=== PATIENT | male | born 1960 | race Caucasian/White ===

== ENCOUNTER 2017-06-25 05:16 | Emergency (ER) | payer BC, OTHER ==
[~2017-06-25] VITALS: Ht 177.8 cm; Wt 85.0 kg
[~2017-06-25 05:16] MED LIST: ALPR0.257 PO; AMOX1TAB64 PO; FAMO-79 PO; HYDR-3237 PO; HYDR473S47 PO; LORA-446 PO; PANT40TA3 PO; TRAZ100T15 PO
[2017-06-25 05:22] VITALS: BP 173/103
== END 2017-06-25 06:32 | disposition home or self-care (01) ==
LOC: ED 06:07
DX: J01.90 Acute sinusitis, unspecified (principal); F17.200 Nicotine dependence, unspecified, uncomplicated; I10 Essential (primary) hypertension
CPT/HCPCS: 99283

== ENCOUNTER 2018-02-10 14:55 | Inpatient (IN) | payer OTHER ==
[~2018-02-10] VITALS: Ht 177.8 cm; Wt 95.8 kg
[~2018-02-10 14:55] MED LIST changes: +TRAZ-137 PO; -TRAZ100T15 PO
[2018-02-10] MEDS ORDERED: ONDANSETRON 2MG/ML, 2ML IVPush ONE (15:00)
[2018-02-10] MEDS ORDERED: SODIUM CHLORIDE FLUSH 10ML SYR IVF ONE (15:00)
[2018-02-10 15:24] LABS: BASOPHILS # (AUTO) 0.04 x10^3/uL (0-0.1); BASOPHILS % (AUTO) 1 % (0-1); EOSINOPHILS # (AUTO) 0.06 x10^3/uL (0-0.4); EOSINOPHILS % (AUTO) 1 % (1-7); LYMPHOCYTES # (AUTO) 1.04 x10^3/uL (1-3.4); LYMPHOCYTES % (AUTO) 13 % (22-44); MD NO; MEAN CORPUSCULAR HEMOGLOBIN 24.5 pg (27.5-34.5); MEAN CORPUSCULAR HGB CONC 32.3 g/dL (33.2-36.2); MEAN CORPUSCULAR VOLUME 75.8 fL (81-97); MEAN PLATELET VOLUME 7.7 fL (7.4-10.4); MONOCYTES # (AUTO) 0.56 x10^3/uL (0.2-0.8); MONOCYTES % (AUTO) 7 % (2-9); NEUTROPHILS % (AUTO) 78 % (42-75); PLATELET COUNT 332 x10^3/uL (130-400); RED BLOOD COUNT 5.46 x10^6/uL (4.38-5.82); RED CELL DISTRIBUTION WIDTH 18.8 % (9.4-14.8)
[2018-02-10] MEDS ORDERED: SODIUM CHLORIDE 0.9% 1,000ML IVBOLUS ONE (15:30)
[2018-02-10] MEDS ORDERED: ONDANSETRON 2MG/ML, 2ML ONE (15:31)
[2018-02-10 15:38] LABS: ALBUMIN 3.7 g/dL (3.4-5.0); ANION GAP 8 mmol/L (5-15); CALCIUM 9.2 mg/dL (8.5-10.1); CHLORIDE 109 mmol/L (98-107)
[2018-02-10 15:41] LABS: ALANINE AMINOTRANSFERASE 25 U/L (12-78); ALKALINE PHOSPHATASE 157 U/L (45-117); BILIRUBIN,TOTAL 0.5 mg/dL (0.2-1.0); CREATININE 1.03 mg/dL (0.7-1.3); TOTAL PROTEIN 8.5 g/dL (6.4-8.2)
[2018-02-10] MEDS ORDERED: POLYETHYLENE GLYCOL 17 GM PACKET PO PRN (17:00)
[2018-02-10] MEDS ORDERED: BISACODYL 10 MG SUPP PR PRN (17:00)
[2018-02-10] MEDS: D5%-LR+KCL 20MEQ 1,000 ML IV SCH ×2 (17:00→22:00)
[2018-02-10] MEDS ORDERED: ONDANSETRON 2MG/ML, 2ML IVPush PRN (17:00)
[2018-02-10 17:40] LABS: CHOL/HDL RATIO 2.3; LDL/HDL RATIO 1.1 (0.5-3.0)
[2018-02-10 17:54] VITALS: BP 190/107
[2018-02-10 18:16] VITALS: BP 186/100
[2018-02-10] MEDS: ENALAPRILAT 1.25 MG/ML, 2ML IV PRN (18:46)
[2018-02-10] MEDS: POTASSIUM CHLORIDE 20 MEQ, MAGNESIUM SULFATE 2 GM, THIAMINE 100 MG, MVI ADULT 10 ML, FO... IV SCH (19:29)
[2018-02-10 19:30] VITALS: BP 157/97
[2018-02-10 20:16] VITALS: BP 143/89
[2018-02-10] MEDS: MORPHINE SULFATE 4 MG/ML, 1ML IVPush PRN (21:09)
[2018-02-11 01:28] VITALS: BP 169/118
[2018-02-11] MEDS: D5%-LR+KCL 20MEQ 1,000 ML IV SCH ×3 (04:58→16:09)
[2018-02-11] MEDS: MORPHINE SULFATE 4 MG/ML, 1ML IVPush PRN ×5 (05:14→21:25)
[2018-02-11 05:58] LABS: BASOPHILS # (AUTO) 0.02 x10^3/uL (0-0.1); BASOPHILS % (AUTO) 0 % (0-1); EOSINOPHILS # (AUTO) 0.13 x10^3/uL (0-0.4); EOSINOPHILS % (AUTO) 2 % (1-7); LYMPHOCYTES # (AUTO) 1.61 x10^3/uL (1-3.4); LYMPHOCYTES % (AUTO) 20 % (22-44); MD NO; MEAN CORPUSCULAR HGB CONC 32.4 g/dL (33.2-36.2); MEAN CORPUSCULAR VOLUME 77.2 fL (81-97); MEAN PLATELET VOLUME 7.7 fL (7.4-10.4); MONOCYTES # (AUTO) 0.58 x10^3/uL (0.2-0.8); MONOCYTES % (AUTO) 7 % (2-9); NEUTROPHILS # (AUTO) 5.68 x10^3/uL (1.8-6.8); NEUTROPHILS % (AUTO) 71 % (42-75); PLATELET COUNT 277 x10^3/uL (130-400); RED BLOOD COUNT 4.75 x10^6/uL (4.38-5.82); RED CELL DISTRIBUTION WIDTH 18.9 % (9.4-14.8)
[2018-02-11 06:02] LABS: CHLORIDE 108 mmol/L (98-107)
[2018-02-11 06:13] LABS: ALANINE AMINOTRANSFERASE 22 U/L (12-78); ALBUMIN 3.1 g/dL (3.4-5.0); ALKALINE PHOSPHATASE 124 U/L (45-117); ANION GAP 7 mmol/L (5-15); BILIRUBIN,TOTAL 0.7 mg/dL (0.2-1.0); CALCIUM 8.1 mg/dL (8.5-10.1); CREATININE 0.94 mg/dL (0.7-1.3); TOTAL PROTEIN 7.1 g/dL (6.4-8.2)
[2018-02-11 07:56] VITALS: BP 142/88
[2018-02-11 11:48] LABS: MICROSCOPIC NOT IND
[2018-02-11 11:50] LABS: CULTURE INDICATED? NO
[2018-02-11 14:30] VITALS: BP 171/100
[2018-02-11] MEDS ORDERED: morphine SULFATE 10 MG/ML, 1ML ONE (15:03)
[2018-02-11] MEDS: POTASSIUM CHLORIDE 20 MEQ, MAGNESIUM SULFATE 2 GM, THIAMINE 100 MG, MVI ADULT 10 ML, FO... IV SCH (18:03)
[2018-02-11 20:07] VITALS: BP 169/99
[2018-02-12] MEDS: MORPHINE SULFATE 4 MG/ML, 1ML IVPush PRN ×8 (00:26→23:11)
[2018-02-12] MEDS: ENALAPRILAT 1.25 MG/ML, 2ML IV PRN (03:50)
[2018-02-12 03:51] VITALS: BP 188/117
[2018-02-12 04:30] VITALS: BP 129/73
[2018-02-12 05:21] LABS: BASOPHILS # (AUTO) 0.02 x10^3/uL (0-0.1); BASOPHILS % (AUTO) 0 % (0-1); EOSINOPHILS # (AUTO) 0.09 x10^3/uL (0-0.4); EOSINOPHILS % (AUTO) 1 % (1-7); LYMPHOCYTES # (AUTO) 1.01 x10^3/uL (1-3.4); LYMPHOCYTES % (AUTO) 11 % (22-44); MD NO; MEAN CORPUSCULAR HEMOGLOBIN 25.3 pg (27.5-34.5); MEAN CORPUSCULAR HGB CONC 32.6 g/dL (33.2-36.2); MEAN CORPUSCULAR VOLUME 77.7 fL (81-97); MONOCYTES # (AUTO) 0.61 x10^3/uL (0.2-0.8); MONOCYTES % (AUTO) 7 % (2-9); NEUTROPHILS # (AUTO) 7.56 x10^3/uL (1.8-6.8); NEUTROPHILS % (AUTO) 81 % (42-75); PLATELET COUNT 256 x10^3/uL (130-400); RED CELL DISTRIBUTION WIDTH 18.9 % (9.4-14.8)
[2018-02-12 05:27] LABS: ANION GAP 4 mmol/L (5-15); CALCIUM 8.1 mg/dL (8.5-10.1); CHLORIDE 105 mmol/L (98-107); CREATININE 0.87 mg/dL (0.7-1.3)
[2018-02-12] MEDS: D5%-LR+KCL 20MEQ 1,000 ML IV SCH ×4 (06:35→22:00)
[2018-02-12] MEDS ORDERED: ACETAMINOPHEN 325 MG TABLET PO PRN (08:30)
[2018-02-12] MEDS ORDERED: LORazepam 1MG TABLET PO PRN (08:30)
[2018-02-12 09:31] VITALS: BP 152/92
[2018-02-12] MEDS: BACLOFEN 10 MG TABLET PO SCH ×2 (10:04→16:25)
[2018-02-12 15:38] VITALS: BP 160/96
[2018-02-12] MEDS: POTASSIUM CHLORIDE 20 MEQ, MAGNESIUM SULFATE 2 GM, THIAMINE 100 MG, MVI ADULT 10 ML, FO... IV SCH (17:51)
[2018-02-12 19:16] VITALS: BP 164/94
[2018-02-12] MEDS: DOCUSATE 100 MG CAPSULE PO PRN (20:00)
[2018-02-12] MEDS ORDERED: TEMAZEPAM 15 MG CAPSULE PO PRN (23:30)
[2018-02-13] MEDS: BACLOFEN 10 MG TABLET PO SCH ×2 (00:33→09:00)
[2018-02-13 01:45] VITALS: BP 166/93
[2018-02-13] MEDS: MORPHINE SULFATE 4 MG/ML, 1ML IVPush PRN ×3 (02:53→09:09)
[2018-02-13] MEDS: D5%-LR+KCL 20MEQ 1,000 ML IV SCH ×2 (03:49→10:00)
[2018-02-13 04:26] LABS: BASOPHILS # (AUTO) 0.01 x10^3/uL (0-0.1); BASOPHILS % (AUTO) 0 % (0-1); EOSINOPHILS # (AUTO) 0.02 x10^3/uL (0-0.4); EOSINOPHILS % (AUTO) 0 % (1-7); LYMPHOCYTES # (AUTO) 0.82 x10^3/uL (1-3.4); LYMPHOCYTES % (AUTO) 9 % (22-44); MD NO; MEAN CORPUSCULAR HEMOGLOBIN 24.8 pg (27.5-34.5); MEAN CORPUSCULAR VOLUME 77.4 fL (81-97); MEAN PLATELET VOLUME 7.7 fL (7.4-10.4); MONOCYTES # (AUTO) 0.94 x10^3/uL (0.2-0.8); MONOCYTES % (AUTO) 10 % (2-9); NEUTROPHILS # (AUTO) 7.75 x10^3/uL (1.8-6.8); NEUTROPHILS % (AUTO) 81 % (42-75); PLATELET COUNT 265 x10^3/uL (130-400); RED BLOOD COUNT 4.71 x10^6/uL (4.38-5.82); RED CELL DISTRIBUTION WIDTH 19.1 % (9.4-14.8)
[2018-02-13 04:56] LABS: ALANINE AMINOTRANSFERASE 19 U/L (12-78); ALKALINE PHOSPHATASE 134 U/L (45-117); BILIRUBIN,TOTAL 0.4 mg/dL (0.2-1.0); CREATININE 1.06 mg/dL (0.7-1.3); TOTAL PROTEIN 7.5 g/dL (6.4-8.2)
[2018-02-13 05:16] LABS: ANION GAP 3 mmol/L (5-15); CALCIUM 8.1 mg/dL (8.5-10.1); CHLORIDE 104 mmol/L (98-107)
[2018-02-13 06:56] VITALS: BP 170/90
[2018-02-13] MEDS: DOCUSATE 100 MG CAPSULE PO PRN (09:01)
[2018-02-13] MEDS: AMLODIPINE 5 MG TABLET PO SCH (12:15)
[2018-02-13] MEDS: HYDROcodone/APAP 5/325 TABLET PO PRN ×2 (12:22→19:06)
[2018-02-13 12:50] VITALS: BP 159/92
[2018-02-13] MEDS: POTASSIUM CHLORIDE 20 MEQ, MAGNESIUM SULFATE 2 GM, THIAMINE 100 MG, MVI ADULT 10 ML, FO... IV SCH (16:53)
[2018-02-14] MEDS: HYDROcodone/APAP 5/325 TABLET PO PRN ×2 (01:08→07:05)
[2018-02-14 01:11] VITALS: BP 170/107
[2018-02-14 05:20] LABS: BASOPHILS # (AUTO) 0.05 x10^3/uL (0-0.1); BASOPHILS % (AUTO) 1 % (0-1); EOSINOPHILS # (AUTO) 0.08 x10^3/uL (0-0.4); EOSINOPHILS % (AUTO) 1 % (1-7); LYMPHOCYTES # (AUTO) 1.24 x10^3/uL (1-3.4); LYMPHOCYTES % (AUTO) 16 % (22-44); MD NO; MEAN CORPUSCULAR HEMOGLOBIN 24.8 pg (27.5-34.5); MEAN CORPUSCULAR VOLUME 77.5 fL (81-97); MEAN PLATELET VOLUME 8.1 fL (7.4-10.4); MONOCYTES # (AUTO) 0.85 x10^3/uL (0.2-0.8); MONOCYTES % (AUTO) 11 % (2-9); NEUTROPHILS # (AUTO) 5.47 x10^3/uL (1.8-6.8); NEUTROPHILS % (AUTO) 71 % (42-75); PLATELET COUNT 285 x10^3/uL (130-400); RED BLOOD COUNT 4.77 x10^6/uL (4.38-5.82); RED CELL DISTRIBUTION WIDTH 18.9 % (9.4-14.8)
[2018-02-14 05:20] LABS: CHLORIDE 106 mmol/L (98-107)
[2018-02-14 05:52] LABS: % IRON SATURATION 5 % (20-55); ALBUMIN 2.8 g/dL (3.4-5.0); ANION GAP 6 mmol/L (5-15); CALCIUM 8.4 mg/dL (8.5-10.1); IRON LEVEL 24 mcg/dL (65-175); TOTAL IRON BINDING CAPACITY 454 mcg/dL (250-450)
[2018-02-14 06:03] LABS: FOLATE LEVEL > 20.0 ng/mL (3.1-17.5)
[2018-02-14 07:30] VITALS: BP 160/94
[2018-02-14] MEDS ORDERED: FERROUS SULFATE 325 MG TABLET PO SCH (08:00)
[2018-02-14] MEDS ORDERED: MAALOX/HYOSCYAMINE/LIDOCAINE 45 ML BTL PO ONE (08:30)
[2018-02-14] MEDS ORDERED: SUCR1ORA5 PO (08:36)
[2018-02-14] MEDS ORDERED: AMLO5TAB2 PO (08:36)
[2018-02-14] MEDS ORDERED: FERR-51 PO (08:37)
[2018-02-14] MEDS: AMLODIPINE 5 MG TABLET PO SCH (08:50)
[2018-02-14] MEDS ORDERED: SUCRALFATE 1 GM/10 ML UDC PO SCH (11:00)
== END 2018-02-14 12:38 | disposition home or self-care (01) | DRG 391 ==
LOC: ED 16:59 → 3NE 17:00 → ED 17:06
PROVIDERS: ADMIT Internal Medicine; ATTEND Internal Medicine
DX: K29.20 Alcoholic gastritis without bleeding (principal); K85.20 Alcohol induced acute pancreatitis without necrosis or infection; F10.10 Alcohol abuse, uncomplicated; E16.2 Hypoglycemia, unspecified; Z66 Do not resuscitate; Y90.9 Presence of alcohol in blood, level not specified; I11.9 Hypertensive heart disease without heart failure; Z79.899 Other long term (current) drug therapy; Z87.11 Personal history of peptic ulcer disease; Z82.49 Family history of ischemic heart disease and other diseases of the circulatory system; Z93.4 Other artificial openings of gastrointestinal tract status; Z98.84 Bariatric surgery status; Z80.9 Family history of malignant neoplasm, unspecified; Z71.41 Alcohol abuse counseling and surveillance of alcoholic
CPT/HCPCS: 36415; 74022; 99285; J7042; 74176; 80048; 80053; 80061; 81003; 82040; 82607; 82728; 82746; 83540; 83550; 83690; 83735; 84100; 84443; 85025; 93005; 96361; 96374; J2405; J3411; J3475; J3480; J7030

== ENCOUNTER 2019-06-08 07:22 | Emergency (ER) | payer MEDICAID ==
[~2019-06-08] VITALS: Ht 175.3 cm; Wt 80.0 kg
[~2019-06-08 07:22] MED LIST changes: +AMLO-150 PO; +ERGO500017 PO; +FERR-51 PO; +FERR324T18 PO; +FLUC200T PO; +SUCR1ORA5 PO
[2019-06-08 07:29] VITALS: BP 172/108
--- NOTE | 2019-06-08 07:46 | NUR ---
LISA HENDRICKSON TO BS FOR ASSESSMENT. AWAITING ORDERS.
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
[2019-06-08] MEDS ORDERED: DIPHENHYDRAMINE 50 MG CAPSULE PO ONE (08:00)
== END 2019-06-08 08:19 | disposition home or self-care (01) ==
LOC: ED 08:04
DX: L03.312 Cellulitis of back [any part except buttock and flank] (principal); L21.9 Seborrheic dermatitis, unspecified; F10.20 Alcohol dependence, uncomplicated; F15.20 Other stimulant dependence, uncomplicated; I10 Essential (primary) hypertension; Y90.0 Blood alcohol level of less than 20 mg/100 ml
CPT/HCPCS: 99283

== ENCOUNTER 2019-10-21 16:12 | Inpatient (IN) | payer MEDICAID ==
[~2019-10-21] VITALS: Ht 177.8 cm; Wt 79.8 kg
[~2019-10-21 16:12] MED LIST changes: -TRAZ-137 PO; +TRAZ-175 PO
--- NOTE | 2019-10-21 17:46 | NUR ---
ADJUNCT PROFESSOR: PT TO ROOM FROM LOBBY
--- NOTE | 2019-10-21 18:08 | NUR ---
PIV STARTED AND BLOOD DRAWN. PT ON CONTINUOUS SPO2 MONITOR AND BP CUFF SET TO [id number]. AWAITING MD.
[2019-10-21] MEDS ORDERED: ONDANSETRON 2MG/ML, 2ML ONE (18:12)
[2019-10-21] MEDS ORDERED: MORPHINE SULFATE 4 MG/ML, 1ML ONE ×2 (18:12→20:12)
[2019-10-21] MEDS ORDERED: LORazepam 2 MG/ML, 1ML IV STA (18:13)
[2019-10-21] MEDS: MORPHINE SULFATE 4 MG/ML, 1ML IVPush PRN ×2 (18:17→20:41)
[2019-10-21] MEDS ORDERED: LORazepam 2 MG/ML, 1ML ONE ×3 (18:19→21:21)
[2019-10-21 18:26] LABS: BASOPHILS # (AUTO) 0.04 x10^3/uL (0-0.1); BASOPHILS % (AUTO) 1 % (0-1); EOSINOPHILS # (AUTO) 0.01 x10^3/uL (0-0.4); EOSINOPHILS % (AUTO) 0 % (1-7); LYMPHOCYTES # (AUTO) 0.34 x10^3/uL (1-3.4); LYMPHOCYTES % (AUTO) 4 % (22-44); MD NO; MEAN CORPUSCULAR HEMOGLOBIN 30.6 pg (27.5-34.5); MEAN CORPUSCULAR HGB CONC 33.3 g/dL (33.2-36.2); MEAN CORPUSCULAR VOLUME 91.8 fL (81-97); MEAN PLATELET VOLUME 8.3 fL (7.4-10.4); MONOCYTES # (AUTO) 0.48 x10^3/uL (0.2-0.8); MONOCYTES % (AUTO) 6 % (2-9); NEUTROPHILS # (AUTO) 7.16 x10^3/uL (1.8-6.8); NEUTROPHILS % (AUTO) 89 % (42-75); PLATELET COUNT 173 x10^3/uL (130-400); RED BLOOD COUNT 5.04 x10^6/uL (4.38-5.82); RED CELL DISTRIBUTION WIDTH 15.8 % (9.4-14.8)
[2019-10-21] MEDS ORDERED: ONDANSETRON 2MG/ML, 2ML IVPush ONE (18:30)
[2019-10-21] MEDS ORDERED: SODIUM CHLORIDE FLUSH 10ML SYR IVF ONE (18:30)
[2019-10-21] MEDS ORDERED: SODIUM CHLORIDE 0.9% 1,000ML IVBOLUS ONE (18:30)
[2019-10-21 18:38] LABS: ALANINE AMINOTRANSFERASE 43 U/L (12-78); ALBUMIN 4.1 g/dL (3.4-5.0); ANION GAP 12 mmol/L (5-15); CALCIUM 9.5 mg/dL (8.5-10.1); CHLORIDE 94 mmol/L (98-107); CREATININE 1.02 mg/dL (0.7-1.3)
[2019-10-21 18:41] LABS: ALKALINE PHOSPHATASE 108 U/L (45-117); BILIRUBIN,TOTAL 1.2 mg/dL (0.2-1.0); TOTAL PROTEIN 8.7 g/dL (6.4-8.2)
[2019-10-21] MEDS ORDERED: LISI-167 PO (19:12)
--- NOTE | 2019-10-21 19:56 | NUR ---
PT TO BE ADMITTED
[2019-10-21] MEDS ORDERED: LORazepam 2 MG/ML, 1ML IVPush STA (19:58)
[2019-10-21] MEDS ORDERED: LABETALOL 5MG/ML, 20ML IVPush ONE ×2 (20:00→22:00)
[2019-10-21] MEDS ORDERED: LABETALOL 5MG/ML, 20ML ONE (20:01)
--- NOTE | 2019-10-21 20:10 | NUR ---
MEDS ADMIN PER AUG. PT RESTING ON LUC.
[2019-10-21] MEDS ORDERED: LORazepam 2 MG/ML, 1ML IVPush PRN (20:30)
[2019-10-21] MEDS ORDERED: hydrALAzine 20 MG/ML, 1ML IV PRN (20:30)
[2019-10-21] MEDS: HEPARIN 5,000 UNITS/ML, 1ML SQ SCH (20:30)
[2019-10-21] MEDS ORDERED: BISACODYL 10 MG SUPP PR PRN (20:30)
[2019-10-21] MEDS ORDERED: ONDANSETRON 2MG/ML, 2ML IVPush PRN (20:30)
--- NOTE | 2019-10-21 21:28 | NUR ---
PT BP CONTINUES ELEVATED AFTER 10MG LABETALOL. NOTIFIED. N/O FOR LABETALOL 10MG IV ONCE, AND ATIVAN 1MG IV ONCE. MEDS ADMIN ORDERED. PT RESTING ON GURNEY. PHANI.
[2019-10-21] MEDS: POTASSIUM CHLORIDE 20 MEQ, MAGNESIUM SULFATE 2 GM, THIAMINE 200 MG, MVI ADULT 10 ML, FO... IV SCH (21:30)
--- NOTE | 2019-10-21 21:53 | NUR ---
REPORT GIVEN TO NABOR LAWSON.
[2019-10-21] MEDS ORDERED: LORazepam 2 MG/ML, 1ML IVPush ONE (22:00)
[2019-10-21 22:39] VITALS: BP 189/120
[2019-10-21 23:20] VITALS: BP 189/102
[2019-10-21] MEDS: hydrALAzine 20 MG/ML, 1ML IV PRN (23:27)
[2019-10-21 23:52] VITALS: BP 152/92
[2019-10-22] VITALS (8 sets, daily range): BP systolic 134–179; BP diastolic 88–120
[2019-10-22] MEDS: HEPARIN 5,000 UNITS/ML, 1ML SQ SCH ×3 (04:43→20:38)
[2019-10-22 04:55] LABS: BASOPHILS # (AUTO) 0.01 x10^3/uL (0-0.1); BASOPHILS % (AUTO) 0 % (0-1); EOSINOPHILS # (AUTO) 0.03 x10^3/uL (0-0.4); EOSINOPHILS % (AUTO) 0 % (1-7); LYMPHOCYTES # (AUTO) 0.35 x10^3/uL (1-3.4); LYMPHOCYTES % (AUTO) 4 % (22-44); MD NO; MEAN CORPUSCULAR HEMOGLOBIN 30.4 pg (27.5-34.5); MEAN CORPUSCULAR HGB CONC 32.7 g/dL (33.2-36.2); MEAN PLATELET VOLUME 8.1 fL (7.4-10.4); MONOCYTES # (AUTO) 0.53 x10^3/uL (0.2-0.8); MONOCYTES % (AUTO) 6 % (2-9); NEUTROPHILS # (AUTO) 8.12 x10^3/uL (1.8-6.8); NEUTROPHILS % (AUTO) 90 % (42-75); PLATELET COUNT 154 x10^3/uL (130-400); RED BLOOD COUNT 4.79 x10^6/uL (4.38-5.82); RED CELL DISTRIBUTION WIDTH 16.1 % (9.4-14.8)
[2019-10-22 05:05] LABS: CALCIUM 8.6 mg/dL (8.5-10.1); CHLORIDE 102 mmol/L (98-107)
[2019-10-22 05:13] LABS: ANION GAP 8 mmol/L (5-15); CREATININE 0.72 mg/dL (0.7-1.3)
[2019-10-22] MEDS: LACTATED RINGERS 1,000 ML IV SCH ×6 (07:30→23:27)
[2019-10-22] MEDS: POTASSIUM CHLORIDE 20 MEQ, MAGNESIUM SULFATE 2 GM, THIAMINE 200 MG, MVI ADULT 10 ML, FO... IV SCH (08:25)
[2019-10-22] MEDS: morphine SULFATE 10 MG/ML, 1ML IVPush PRN ×3 (10:03→20:47)
[2019-10-22] MEDS: hydrALAzine 20 MG/ML, 1ML IV PRN (15:21)
[2019-10-23] MEDS: morphine SULFATE 10 MG/ML, 1ML IVPush PRN ×5 (02:00→20:08)
[2019-10-23 02:04] VITALS: BP 159/92
[2019-10-23] MEDS: HEPARIN 5,000 UNITS/ML, 1ML SQ SCH ×3 (04:26→20:07)
[2019-10-23] MEDS: LACTATED RINGERS 1,000 ML IV SCH ×5 (04:26→23:59)
[2019-10-23 06:13] LABS: ALBUMIN 2.8 g/dL (3.4-5.0); ANION GAP 7 mmol/L (5-15); CALCIUM 8.6 mg/dL (8.5-10.1); CHLORIDE 103 mmol/L (98-107)
[2019-10-23 06:16] LABS: ALANINE AMINOTRANSFERASE 24 U/L (12-78); ALKALINE PHOSPHATASE 87 U/L (45-117); BILIRUBIN,TOTAL 0.7 mg/dL (0.2-1.0); CREATININE 0.71 mg/dL (0.7-1.3)
[2019-10-23 06:25] VITALS: BP 165/102
[2019-10-23] MEDS: POTASSIUM CHLORIDE 20 MEQ, MAGNESIUM SULFATE 2 GM, THIAMINE 200 MG, MVI ADULT 10 ML, FO... IV SCH ×2 (09:25→11:13)
[2019-10-23 13:22] VITALS: BP 181/114
[2019-10-23 13:24] VITALS: BP 173/101
[2019-10-23] MEDS: hydrALAzine 20 MG/ML, 1ML IV PRN (15:41)
[2019-10-23 17:53] VITALS: BP 154/93
[2019-10-23 18:31] VITALS: BP 149/88
[2019-10-24 01:41] VITALS: BP 152/92
[2019-10-24] MEDS: HEPARIN 5,000 UNITS/ML, 1ML SQ SCH ×3 (04:48→20:31)
[2019-10-24] MEDS: morphine SULFATE 10 MG/ML, 1ML IVPush PRN ×7 (04:49→22:15)
[2019-10-24] MEDS: LACTATED RINGERS 1,000 ML IV SCH ×4 (04:52→20:32)
[2019-10-24 06:24] VITALS: BP 154/96
[2019-10-24 06:31] LABS: MEAN CORPUSCULAR HEMOGLOBIN 30.7 pg (27.5-34.5); MEAN CORPUSCULAR HGB CONC 32.9 g/dL (33.2-36.2); MEAN CORPUSCULAR VOLUME 93.1 fL (81-97); RED BLOOD COUNT 3.91 x10^6/uL (4.38-5.82); RED CELL DISTRIBUTION WIDTH 15.7 % (9.4-14.8)
[2019-10-24 06:40] LABS: ANION GAP 8 mmol/L (5-15); CALCIUM 8.7 mg/dL (8.5-10.1); CHLORIDE 99 mmol/L (98-107)
[2019-10-24 07:42] LABS: BASOPHILS # (AUTO) 0.01 x10^3/uL (0-0.1); BASOPHILS % (AUTO) 0 % (0-1); EOSINOPHILS # (AUTO) 0.06 x10^3/uL (0-0.4); EOSINOPHILS % (AUTO) 1 % (1-7); LYMPHOCYTES # (AUTO) 0.52 x10^3/uL (1-3.4); LYMPHOCYTES % (AUTO) 10 % (22-44); MD SCAN; MEAN PLATELET VOLUME 8.4 fL (7.4-10.4); MONOCYTES % (AUTO) 9 % (2-9); NEUTROPHILS % (AUTO) 80 % (42-75); PLATELET COUNT 128 x10^3/uL (130-400)
[2019-10-24] MEDS ORDERED: THIAMINE 100 MG in SODIUM CHLORIDE 0.9% 50 ML IV SCH (10:00)
[2019-10-24] MEDS: PANTOPRAZOLE 40 MG IV IVPush SCH ×2 (11:41→22:14)
[2019-10-24 12:02] VITALS: BP 154/92
[2019-10-24] MEDS ORDERED: OMNIPAQUE 350 MG/ML, 100ML BOTTLE ONE (12:14)
[2019-10-24 18:42] VITALS: BP 165/92
[2019-10-25 01:10] VITALS: BP 159/86
[2019-10-25] MEDS: LACTATED RINGERS 1,000 ML IV SCH ×3 (01:12→09:57)
[2019-10-25] MEDS: morphine SULFATE 10 MG/ML, 1ML IVPush PRN ×5 (01:33→22:54)
[2019-10-25 04:18] VITALS: BP 190/107
[2019-10-25] MEDS: hydrALAzine 20 MG/ML, 1ML IV PRN ×2 (04:21→19:15)
[2019-10-25] MEDS: HEPARIN 5,000 UNITS/ML, 1ML SQ SCH ×4 (05:03→20:28)
[2019-10-25 05:10] VITALS: BP 162/93
[2019-10-25 06:25] VITALS: BP 152/85
[2019-10-25 07:05] LABS: ANION GAP 12 mmol/L (5-15); CALCIUM 8.5 mg/dL (8.5-10.1); CHLORIDE 101 mmol/L (98-107); CREATININE 0.57 mg/dL (0.7-1.3)
[2019-10-25] MEDS: DOCUSATE 100 MG CAPSULE PO SCH ×2 (08:57→20:25)
[2019-10-25] MEDS: PANTOPRAZOLE 40 MG IV IVPush SCH (08:58)
[2019-10-25] MEDS: ACETAMINOPHEN 325 MG TABLET PO PRN (08:58)
[2019-10-25] MEDS: POLYETHYLENE GLYCOL 17 GM PACKET PO SCH (08:58)
[2019-10-25] MEDS: LISINOPRIL 10 MG TABLET PO SCH (10:12)
[2019-10-25 12:04] VITALS: BP 168/86
[2019-10-25 19:05] VITALS: BP 190/102
[2019-10-25] MEDS ORDERED: MAGNESIUM CITRATE 300ML ORAL SOL PO ONE (20:00)
[2019-10-25] MEDS: PANTOPRAZOLE 40MG TABLET PO SCH (20:24)
[2019-10-26 01:52] VITALS: BP 177/100
[2019-10-26] MEDS: hydrALAzine 20 MG/ML, 1ML IV PRN (01:56)
[2019-10-26] MEDS: HEPARIN 5,000 UNITS/ML, 1ML SQ SCH ×2 (03:50→13:16)
[2019-10-26 05:01] VITALS: BP 171/98
[2019-10-26] MEDS: morphine SULFATE 10 MG/ML, 1ML IVPush PRN (05:09)
[2019-10-26] MEDS: PANTOPRAZOLE 40MG TABLET PO SCH ×2 (05:20→17:11)
[2019-10-26] MEDS: LACTATED RINGERS 1,000 ML IV SCH (06:48)
[2019-10-26 07:09] LABS: BASOPHILS # (AUTO) 0.01 x10^3/uL (0-0.1); BASOPHILS % (AUTO) 0 % (0-1); EOSINOPHILS # (AUTO) 0.05 x10^3/uL (0-0.4); EOSINOPHILS % (AUTO) 1 % (1-7); LYMPHOCYTES # (AUTO) 0.44 x10^3/uL (1-3.4); LYMPHOCYTES % (AUTO) 10 % (22-44); MD NO; MEAN CORPUSCULAR HEMOGLOBIN 30.7 pg (27.5-34.5); MEAN CORPUSCULAR HGB CONC 33.3 g/dL (33.2-36.2); MEAN CORPUSCULAR VOLUME 92.3 fL (81-97); MEAN PLATELET VOLUME 7.8 fL (7.4-10.4); MONOCYTES # (AUTO) 0.77 x10^3/uL (0.2-0.8); MONOCYTES % (AUTO) 18 % (2-9); NEUTROPHILS # (AUTO) 2.96 x10^3/uL (1.8-6.8); NEUTROPHILS % (AUTO) 70 % (42-75); PLATELET COUNT 180 x10^3/uL (130-400); RED BLOOD COUNT 4.29 x10^6/uL (4.38-5.82); RED CELL DISTRIBUTION WIDTH 15.1 % (9.4-14.8)
[2019-10-26 07:12] VITALS: BP 179/106
[2019-10-26 07:14] LABS: ALANINE AMINOTRANSFERASE 19 U/L (12-78); ALBUMIN 2.9 g/dL (3.4-5.0); ANION GAP 10 mmol/L (5-15); CALCIUM 8.2 mg/dL (8.5-10.1); CHLORIDE 101 mmol/L (98-107)
[2019-10-26 07:17] LABS: ALKALINE PHOSPHATASE 81 U/L (45-117); BILIRUBIN,TOTAL 0.5 mg/dL (0.2-1.0); CREATININE 0.63 mg/dL (0.7-1.3); TOTAL PROTEIN 6.9 g/dL (6.4-8.2)
[2019-10-26] MEDS: DOCUSATE 100 MG CAPSULE PO SCH (08:05)
[2019-10-26] MEDS: LISINOPRIL 10 MG TABLET PO SCH (08:06)
[2019-10-26] MEDS: POLYETHYLENE GLYCOL 17 GM PACKET PO SCH (08:06)
[2019-10-26] MEDS ORDERED: FOLIC ACID 1 MG TABLET PO SCH (09:00)
[2019-10-26] MEDS ORDERED: MULTIVITAMIN 1 TABLET PO SCH (09:00)
[2019-10-26] MEDS ORDERED: THIAMINE 100MG TABLET PO SCH (09:00)
[2019-10-26 09:28] VITALS: BP 157/97
[2019-10-26] MEDS: ACETAMINOPHEN 325 MG TABLET PO PRN (10:54)
[2019-10-26 13:39] VITALS: BP 165/95
[2019-10-26] MEDS ORDERED: PANT40TA3 PO (16:24)
[2019-10-26] MEDS ORDERED: MULT1TAB60 PO (16:24)
[2019-10-26] MEDS ORDERED: FOLI-17 PO (16:24)
[2019-10-26] MEDS ORDERED: THIA100T67 PO (16:24)
== END 2019-10-26 17:45 | disposition home or self-care (01) | DRG 439 ==
LOC: ED 17:59 → EDIP 20:00 → 4EST 22:24
PROVIDERS: ATTEND Internal Medicine
DX: K85.20 Alcohol induced acute pancreatitis without necrosis or infection (principal); J90 Pleural effusion, not elsewhere classified; J98.11 Atelectasis; K56.7 Ileus, unspecified; F10.231 Alcohol dependence with withdrawal delirium; I10 Essential (primary) hypertension; I16.0 Hypertensive urgency; K76.0 Fatty (change of) liver, not elsewhere classified; D64.9 Anemia, unspecified; D69.6 Thrombocytopenia, unspecified; K80.20 Calculus of gallbladder without cholecystitis without obstruction; K82.8 Other specified diseases of gallbladder; Z87.11 Personal history of peptic ulcer disease; Z91.14 Patient's other noncompliance with medication regimen; Z98.84 Bariatric surgery status
CPT/HCPCS: 36415; 99285; J7042; 71045; 74177; 76700; 80048; 80053; 83690; 83735; 84100; 85025; G0378; J1644; J2405; J3411; J3475; J3480; Q9967; C9113; J0360; J2060; J2270; J7030; J7120

== ENCOUNTER 2019-11-24 12:54 | Inpatient (IN) | payer MEDICAID ==
[~2019-11-24] VITALS: Ht 177.8 cm; Wt 76.1 kg
[~2019-11-24 12:54] MED LIST changes: +FOLI-17 PO; +LISI-167 PO; +MULT-449 PO; +THIA100T67 PO
--- NOTE | 2019-11-24 13:06 | NUR ---
BIB [facility] FROM HOME FOR DIZZINESS AND GENERALIZED WEAKNESS X2 WEEKS AND GETTING WORSE. INCREASED FALLS, DENIES TRAUMA FROM FALLS. HX ETOH ABUSE, STATES HASN'T HAD ANY ETOH IN ONE MONTH. PT CONNECTED TO MONITORING. CALL LIGHT IN REACH. FALL PRECAUTIONS IN PLACE.
--- NOTE | 2019-11-24 14:01 | NUR ---
PT RESTING COMFORTABLY ON [facility]. ANDREEN. AWAITING ORDERS AT THIS TIME.
[2019-11-24] MEDS ORDERED: SODIUM CHLORIDE FLUSH 10ML SYR IVF ONE (14:30)
[2019-11-24 14:44] LABS: BASOPHILS # (AUTO) 0.02 x10^3/uL (0-0.1); BASOPHILS % (AUTO) 0 % (0-1); EOSINOPHILS # (AUTO) 0.18 x10^3/uL (0-0.4); EOSINOPHILS % (AUTO) 3 % (1-7); LYMPHOCYTES # (AUTO) 1.35 x10^3/uL (1-3.4); LYMPHOCYTES % (AUTO) 19 % (22-44); MD NO; MEAN CORPUSCULAR HEMOGLOBIN 29.7 pg (27.5-34.5); MEAN CORPUSCULAR VOLUME 90.1 fL (81-97); MEAN PLATELET VOLUME 7.9 fL (7.4-10.4); MONOCYTES # (AUTO) 0.58 x10^3/uL (0.2-0.8); MONOCYTES % (AUTO) 8 % (2-9); NEUTROPHILS # (AUTO) 4.88 x10^3/uL (1.8-6.8); NEUTROPHILS % (AUTO) 70 % (42-75); PLATELET COUNT 250 x10^3/uL (130-400); RED BLOOD COUNT 4.87 x10^6/uL (4.38-5.82); RED CELL DISTRIBUTION WIDTH 14.3 % (9.4-14.8)
[2019-11-24 14:52] LABS: ALANINE AMINOTRANSFERASE 18 U/L (12-78); ALBUMIN 3.6 g/dL (3.4-5.0); ANION GAP 9 mmol/L (5-15); CALCIUM 8.6 mg/dL (8.5-10.1); CHLORIDE 101 mmol/L (98-107); CREATININE 0.95 mg/dL (0.7-1.3)
[2019-11-24 14:53] LABS: SALICYLATE LEVEL < 1.7 mg/dL (2.8-20.0)
[2019-11-24 14:57] LABS: ALKALINE PHOSPHATASE 71 U/L (45-117); BILIRUBIN,TOTAL 0.2 mg/dL (0.2-1.0); TOTAL PROTEIN 7.8 g/dL (6.4-8.2); TROPONIN I < 0.015 ng/mL (0.000-0.045)
--- NOTE | 2019-11-24 15:15 | NUR ---
PT GIVEN URINE CUP FOR SAMPLE. PT UNABLE TO URINATE AT THIS TIME. PT TAKEN TO CT.
--- NOTE | 2019-11-24 15:48 | NUR ---
URINE COLLECTED VIA STRAIGHT CATH. PT TOLLERATED WELL. URINE TAKEN TO LAB. PT RESTING ON [facility]. PHANI.
[2019-11-24 16:11] LABS: AMPHETAMINE SCREEN, URINE Positive (Negative); BARBITURATE SCREEN, URINE Positive (Negative); BENZODIAZEPINE SCREEN, URINE Negative (Negative); CANNABINOID SCREEN, URINE Positive (Negative); COCAINE SCREEN, URINE Negative (Negative); METHADONE SCREEN, URINE Negative (Negative); OPIATE SCREEN, URINE Negative (Negative)
--- NOTE | 2019-11-24 16:14 | NUR ---
ALL RESULTS ARE BACK AT THIS TIME. CHART UP FOR RECHECK.
--- NOTE | 2019-11-24 16:49 | NUR ---
PT TO BE ADMITTED
--- NOTE | 2019-11-24 16:51 | NUR ---
PT STATES HE DOES NOT TAKE ANY MEDS ON A DAILY BASIS.
[2019-11-24] MEDS ORDERED: ASPIRIN 325 MG TABLET PO STA (17:14)
[2019-11-24] MEDS ORDERED: ASPIRIN 325 MG TABLET ONE (17:20)
--- NOTE | 2019-11-24 17:23 | NUR ---
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 PT SELF ADJUSTED AND MORE COMFORTABLE IN BED. NADN. DINNER TRAY ORDERED.
--- NOTE | 2019-11-24 17:28 | NUR ---
DIET TRAY PROVIDED.
[2019-11-24] MEDS ORDERED: ONDANSETRON ODT 4 MG PO PRN (17:30)
[2019-11-24] MEDS ORDERED: LORazepam 2 MG/ML, 1ML IV PRN ×4 (17:30)
[2019-11-24] MEDS ORDERED: THIAMINE 100MG TABLET PO ONE (17:30)
--- NOTE | 2019-11-24 18:51 | NUR ---
PT RESTING COMFORTABLY ON GURNEY. NADN. AWAITING ADMIT BED UPSTAIRS.
--- NOTE | 2019-11-24 19:56 | NUR ---
REPORT GIVEN TO CAROL LAWSON.
[2019-11-24 20:05] VITALS: BP 149/99
[2019-11-24] MEDS: FOLIC ACID 1 MG TABLET PO SCH (21:19)
[2019-11-24] MEDS: MULTIVITAMIN 1 TABLET PO SCH (21:19)
[2019-11-24] MEDS: LACTATED RINGERS 1,000 ML IV SCH (21:19)
[2019-11-24] MEDS: ENOXAPARIN 40 MG/0.4 ML SQ SCH (21:20)
[2019-11-24 21:38] VITALS: BP 149/99
[2019-11-24 21:39] LABS: TROPONIN I < 0.015 ng/mL (0.000-0.045)
[2019-11-25] VITALS (10 sets, daily range): BP systolic 129–161; BP diastolic 82–101
[2019-11-25 03:23] LABS: BASOPHILS # (AUTO) 0.08 x10^3/uL (0-0.1); BASOPHILS % (AUTO) 1 % (0-1); EOSINOPHILS # (AUTO) 0.24 x10^3/uL (0-0.4); EOSINOPHILS % (AUTO) 4 % (1-7); LYMPHOCYTES # (AUTO) 1.71 x10^3/uL (1-3.4); LYMPHOCYTES % (AUTO) 29 % (22-44); MD NO; MEAN CORPUSCULAR HEMOGLOBIN 29.6 pg (27.5-34.5); MEAN CORPUSCULAR VOLUME 89.8 fL (81-97); MEAN PLATELET VOLUME 8.1 fL (7.4-10.4); MONOCYTES # (AUTO) 0.45 x10^3/uL (0.2-0.8); MONOCYTES % (AUTO) 8 % (2-9); NEUTROPHILS # (AUTO) 3.38 x10^3/uL (1.8-6.8); NEUTROPHILS % (AUTO) 58 % (42-75); PLATELET COUNT 226 x10^3/uL (130-400); RED BLOOD COUNT 4.78 x10^6/uL (4.38-5.82); RED CELL DISTRIBUTION WIDTH 14.4 % (9.4-14.8)
[2019-11-25 03:29] LABS: ALANINE AMINOTRANSFERASE 17 U/L (12-78); ALBUMIN 3.5 g/dL (3.4-5.0); ANION GAP 8 mmol/L (5-15); CALCIUM 8.9 mg/dL (8.5-10.1); CHLORIDE 103 mmol/L (98-107); CREATININE 0.85 mg/dL (0.7-1.3)
[2019-11-25 03:32] LABS: ALKALINE PHOSPHATASE 63 U/L (45-117); BILIRUBIN,TOTAL 0.4 mg/dL (0.2-1.0); TOTAL PROTEIN 7.2 g/dL (6.4-8.2)
[2019-11-25 03:54] LABS: TROPONIN I < 0.015 ng/mL (0.000-0.045)
[2019-11-25] MEDS: LACTATED RINGERS 1,000 ML IV SCH ×2 (05:41→15:02)
[2019-11-25] MEDS: FOLIC ACID 1 MG TABLET PO SCH (09:35)
[2019-11-25] MEDS: MULTIVITAMIN 1 TABLET PO SCH (09:35)
[2019-11-25] MEDS ORDERED: GADOTERATE 10 MMOL/20 ML SYR ONE (17:06)
[2019-11-25] MEDS: ENOXAPARIN 40 MG/0.4 ML SQ SCH (21:11)
[2019-11-25] MEDS: ENALAPRILAT 1.25 MG/ML, 2ML IV PRN (22:08)
[2019-11-26] VITALS (7 sets, daily range): BP systolic 135–156; BP diastolic 85–109
[2019-11-26] MEDS: LACTATED RINGERS 1,000 ML IV SCH ×3 (02:26→20:10)
[2019-11-26 05:53] LABS: BASOPHILS # (AUTO) 0.04 x10^3/uL (0-0.1); BASOPHILS % (AUTO) 1 % (0-1); EOSINOPHILS # (AUTO) 0.18 x10^3/uL (0-0.4); EOSINOPHILS % (AUTO) 3 % (1-7); LYMPHOCYTES # (AUTO) 1.49 x10^3/uL (1-3.4); LYMPHOCYTES % (AUTO) 26 % (22-44); MD NO; MEAN CORPUSCULAR HEMOGLOBIN 29.6 pg (27.5-34.5); MEAN CORPUSCULAR HGB CONC 33.1 g/dL (33.2-36.2); MEAN CORPUSCULAR VOLUME 89.4 fL (81-97); MEAN PLATELET VOLUME 8.4 fL (7.4-10.4); MONOCYTES % (AUTO) 7 % (2-9); NEUTROPHILS # (AUTO) 3.55 x10^3/uL (1.8-6.8); NEUTROPHILS % (AUTO) 63 % (42-75); PLATELET COUNT 234 x10^3/uL (130-400); RED CELL DISTRIBUTION WIDTH 13.7 % (9.4-14.8)
[2019-11-26 06:00] LABS: ANION GAP 8 mmol/L (5-15); CALCIUM 8.7 mg/dL (8.5-10.1); CHLORIDE 103 mmol/L (98-107)
[2019-11-26] MEDS: POLYETHYLENE GLYCOL 17 GM PACKET PO PRN (10:38)
[2019-11-26] MEDS: MULTIVITAMIN 1 TABLET PO SCH (10:38)
[2019-11-26] MEDS: DOCUSATE 100 MG CAPSULE PO PRN ×2 (10:38→20:13)
[2019-11-26] MEDS: FOLIC ACID 1 MG TABLET PO SCH (10:38)
[2019-11-26] MEDS: ENALAPRILAT 1.25 MG/ML, 2ML IV PRN (20:11)
[2019-11-26] MEDS: ENOXAPARIN 40 MG/0.4 ML SQ SCH (20:15)
[2019-11-26] MEDS ORDERED: OMNIPAQUE 350 MG/ML, 100ML BOTTLE ONE (22:05)
[2019-11-27] VITALS (7 sets, daily range): BP systolic 133–184; BP diastolic 64–102
[2019-11-27] MEDS: ENALAPRILAT 1.25 MG/ML, 2ML IV PRN (02:31)
[2019-11-27] MEDS: hydrALAzine 20 MG/ML, 1ML IV PRN (04:22)
[2019-11-27] MEDS: LACTATED RINGERS 1,000 ML IV SCH ×2 (04:22→14:30)
[2019-11-27 06:02] LABS: BASOPHILS # (AUTO) 0.06 x10^3/uL (0-0.1); BASOPHILS % (AUTO) 1 % (0-1); EOSINOPHILS # (AUTO) 0.17 x10^3/uL (0-0.4); EOSINOPHILS % (AUTO) 3 % (1-7); LYMPHOCYTES # (AUTO) 1.33 x10^3/uL (1-3.4); LYMPHOCYTES % (AUTO) 22 % (22-44); MD NO; MEAN CORPUSCULAR HGB CONC 33.5 g/dL (33.2-36.2); MEAN CORPUSCULAR VOLUME 89.6 fL (81-97); MONOCYTES # (AUTO) 0.44 x10^3/uL (0.2-0.8); MONOCYTES % (AUTO) 7 % (2-9); NEUTROPHILS # (AUTO) 4.05 x10^3/uL (1.8-6.8); NEUTROPHILS % (AUTO) 67 % (42-75); PLATELET COUNT 246 x10^3/uL (130-400); RED CELL DISTRIBUTION WIDTH 13.8 % (9.4-14.8)
[2019-11-27 06:06] LABS: ANION GAP 8 mmol/L (5-15); CHLORIDE 101 mmol/L (98-107)
[2019-11-27 06:08] LABS: CREATININE 0.86 mg/dL (0.7-1.3)
[2019-11-27] MEDS: POLYETHYLENE GLYCOL 17 GM PACKET PO PRN (07:56)
[2019-11-27] MEDS: FOLIC ACID 1 MG TABLET PO SCH (07:56)
[2019-11-27] MEDS: DOCUSATE 100 MG CAPSULE PO PRN (07:56)
[2019-11-27] MEDS: MULTIVITAMIN 1 TABLET PO SCH (07:56)
[2019-11-27] MEDS ORDERED: LEVETIRACETAM 100 MG/ML, 5ML IV STA (15:25)
[2019-11-27] MEDS ORDERED: LEVETIRACETAM 1,000 MG in SODIUM CHLORIDE 0.9% 100 ML IV ONE (15:33)
[2019-11-27] MEDS: LACTULOSE 20 GM/30 ML UDC PO PRN (16:43)
[2019-11-27] MEDS: SENNA/DOCUSATE TABLET PO SCH (21:03)
[2019-11-27] MEDS: LEVETIRACETAM 500 MG TABLET PO SCH (21:04)
[2019-11-27] MEDS: ENOXAPARIN 40 MG/0.4 ML SQ SCH (21:07)
[2019-11-28 02:00] VITALS: BP 129/58
[2019-11-28] MEDS: IBUPROFEN 600 MG TABLET PO PRN ×2 (03:43→19:20)
[2019-11-28 05:27] LABS: BASOPHILS # (AUTO) 0.08 x10^3/uL (0-0.1); BASOPHILS % (AUTO) 1 % (0-1); EOSINOPHILS # (AUTO) 0.19 x10^3/uL (0-0.4); EOSINOPHILS % (AUTO) 3 % (1-7); LYMPHOCYTES # (AUTO) 1.22 x10^3/uL (1-3.4); LYMPHOCYTES % (AUTO) 20 % (22-44); MD NO; MEAN CORPUSCULAR HEMOGLOBIN 29.7 pg (27.5-34.5); MEAN CORPUSCULAR HGB CONC 33.5 g/dL (33.2-36.2); MEAN CORPUSCULAR VOLUME 88.8 fL (81-97); MEAN PLATELET VOLUME 8.3 fL (7.4-10.4); MONOCYTES # (AUTO) 0.42 x10^3/uL (0.2-0.8); MONOCYTES % (AUTO) 7 % (2-9); NEUTROPHILS # (AUTO) 4.37 x10^3/uL (1.8-6.8); NEUTROPHILS % (AUTO) 69 % (42-75); PLATELET COUNT 253 x10^3/uL (130-400); RED BLOOD COUNT 4.63 x10^6/uL (4.38-5.82); RED CELL DISTRIBUTION WIDTH 13.9 % (9.4-14.8)
[2019-11-28 05:37] LABS: ANION GAP 10 mmol/L (5-15); CALCIUM 8.8 mg/dL (8.5-10.1); CHLORIDE 102 mmol/L (98-107)
[2019-11-28 05:38] LABS: CREATININE 0.81 mg/dL (0.7-1.3)
[2019-11-28] MEDS: LACTATED RINGERS 1,000 ML IV SCH ×2 (06:35→16:08)
[2019-11-28 06:45] VITALS: BP 163/92
[2019-11-28 07:12] VITALS: BP 126/84
[2019-11-28] MEDS: LEVETIRACETAM 500 MG TABLET PO SCH ×2 (08:06→20:58)
[2019-11-28] MEDS: MAGNESIUM HYDROXIDE 8%, 30ML UDC PO SCH (08:06)
[2019-11-28] MEDS: FOLIC ACID 1 MG TABLET PO SCH (08:06)
[2019-11-28] MEDS: MULTIVITAMIN 1 TABLET PO SCH (08:06)
[2019-11-28] MEDS: DOCUSATE 100 MG CAPSULE PO SCH (08:07)
[2019-11-28 14:35] VITALS: BP 149/92
[2019-11-28] MEDS: ENOXAPARIN 40 MG/0.4 ML SQ SCH (20:58)
[2019-11-28] MEDS: SENNA/DOCUSATE TABLET PO SCH (20:58)
[2019-11-28] MEDS: ACETAMINOPHEN 325 MG TABLET PO PRN (21:13)
[2019-11-28 21:57] VITALS: BP 152/91
[2019-11-29 00:28] VITALS: BP 162/96
[2019-11-29] MEDS: ACETAMINOPHEN 325 MG TABLET PO PRN ×2 (00:34→20:03)
[2019-11-29] MEDS: ENALAPRILAT 1.25 MG/ML, 2ML IV PRN (01:04)
[2019-11-29] MEDS: LACTATED RINGERS 1,000 ML IV SCH ×2 (02:28→14:59)
[2019-11-29 02:29] VITALS: BP 150/90
[2019-11-29] MEDS: IBUPROFEN 600 MG TABLET PO PRN (02:33)
[2019-11-29] MEDS ORDERED: MAGNESIUM CITRATE 300ML ORAL SOL PO ONE ×2 (05:30→06:30)
[2019-11-29 05:40] LABS: BASOPHILS # (AUTO) 0.04 x10^3/uL (0-0.1); BASOPHILS % (AUTO) 1 % (0-1); EOSINOPHILS # (AUTO) 0.24 x10^3/uL (0-0.4); EOSINOPHILS % (AUTO) 4 % (1-7); LYMPHOCYTES # (AUTO) 1.41 x10^3/uL (1-3.4); LYMPHOCYTES % (AUTO) 25 % (22-44); MD NO; MEAN CORPUSCULAR HEMOGLOBIN 29.6 pg (27.5-34.5); MEAN CORPUSCULAR HGB CONC 32.8 g/dL (33.2-36.2); MEAN CORPUSCULAR VOLUME 90.2 fL (81-97); MEAN PLATELET VOLUME 8.3 fL (7.4-10.4); MONOCYTES # (AUTO) 0.44 x10^3/uL (0.2-0.8); MONOCYTES % (AUTO) 8 % (2-9); NEUTROPHILS % (AUTO) 62 % (42-75); PLATELET COUNT 247 x10^3/uL (130-400); RED BLOOD COUNT 4.71 x10^6/uL (4.38-5.82); RED CELL DISTRIBUTION WIDTH 13.8 % (9.4-14.8)
[2019-11-29 05:47] LABS: ANION GAP 7 mmol/L (5-15); CALCIUM 9.2 mg/dL (8.5-10.1); CHLORIDE 106 mmol/L (98-107); CREATININE 0.95 mg/dL (0.7-1.3)
[2019-11-29 06:35] VITALS: BP 133/86
[2019-11-29] MEDS: MAGNESIUM HYDROXIDE 8%, 30ML UDC PO SCH (08:07)
[2019-11-29] MEDS: FOLIC ACID 1 MG TABLET PO SCH (08:07)
[2019-11-29] MEDS: MULTIVITAMIN 1 TABLET PO SCH (08:07)
[2019-11-29] MEDS: DOCUSATE 100 MG CAPSULE PO SCH (08:07)
[2019-11-29] MEDS: LEVETIRACETAM 500 MG TABLET PO SCH ×2 (08:08→20:03)
[2019-11-29 13:08] VITALS: BP 145/90
[2019-11-29] MEDS: LACTULOSE 20 GM/30 ML UDC PO PRN (16:41)
[2019-11-29 16:48] LABS: GLUCOSE, CSF 58 mg/dL (40-80); TOTAL PROTEIN,CSF 89 mg/dL (15-45)
[2019-11-29 19:23] VITALS: BP 138/86
[2019-11-29] MEDS: ENOXAPARIN 40 MG/0.4 ML SQ SCH (20:03)
[2019-11-29] MEDS: BISACODYL 10 MG SUPP PR PRN (20:03)
[2019-11-30 00:41] VITALS: BP 132/80
[2019-11-30] MEDS: LACTATED RINGERS 1,000 ML IV SCH ×3 (00:47→22:03)
[2019-11-30] MEDS: BISACODYL 10 MG SUPP PR PRN (05:25)
[2019-11-30 06:18] LABS: BASOPHILS # (AUTO) 0.02 x10^3/uL (0-0.1); BASOPHILS % (AUTO) 0 % (0-1); EOSINOPHILS % (AUTO) 4 % (1-7); LYMPHOCYTES # (AUTO) 1.07 x10^3/uL (1-3.4); LYMPHOCYTES % (AUTO) 19 % (22-44); MD NO; MEAN CORPUSCULAR HEMOGLOBIN 29.4 pg (27.5-34.5); MEAN CORPUSCULAR HGB CONC 32.5 g/dL (33.2-36.2); MEAN CORPUSCULAR VOLUME 90.3 fL (81-97); MEAN PLATELET VOLUME 8.2 fL (7.4-10.4); MONOCYTES # (AUTO) 0.31 x10^3/uL (0.2-0.8); MONOCYTES % (AUTO) 5 % (2-9); NEUTROPHILS # (AUTO) 4.11 x10^3/uL (1.8-6.8); NEUTROPHILS % (AUTO) 72 % (42-75); PLATELET COUNT 250 x10^3/uL (130-400); RED BLOOD COUNT 4.81 x10^6/uL (4.38-5.82); RED CELL DISTRIBUTION WIDTH 13.7 % (9.4-14.8)
[2019-11-30 06:25] LABS: ANION GAP 9 mmol/L (5-15); CALCIUM 8.8 mg/dL (8.5-10.1); CHLORIDE 102 mmol/L (98-107)
[2019-11-30 06:26] LABS: CREATININE 0.78 mg/dL (0.7-1.3)
[2019-11-30 06:42] VITALS: BP 166/105
[2019-11-30] MEDS: FOLIC ACID 1 MG TABLET PO SCH (08:42)
[2019-11-30] MEDS: MULTIVITAMIN 1 TABLET PO SCH (08:42)
[2019-11-30] MEDS: LEVETIRACETAM 500 MG TABLET PO SCH ×2 (08:42→20:36)
[2019-11-30] MEDS: ENALAPRILAT 1.25 MG/ML, 2ML IV PRN (08:42)
[2019-11-30] MEDS: MAGNESIUM HYDROXIDE 8%, 30ML UDC PO SCH (08:43)
[2019-11-30] MEDS: DOCUSATE 100 MG CAPSULE PO SCH (08:43)
[2019-11-30 12:13] VITALS: BP 145/91
[2019-11-30 18:37] VITALS: BP 123/77
[2019-11-30] MEDS: ENOXAPARIN 40 MG/0.4 ML SQ SCH (20:36)
[2019-12-01 00:36] VITALS: BP 142/69
[2019-12-01 05:41] LABS: BASOPHILS # (AUTO) 0.05 x10^3/uL (0-0.1); BASOPHILS % (AUTO) 1 % (0-1); EOSINOPHILS # (AUTO) 0.22 x10^3/uL (0-0.4); EOSINOPHILS % (AUTO) 4 % (1-7); LYMPHOCYTES # (AUTO) 1.33 x10^3/uL (1-3.4); LYMPHOCYTES % (AUTO) 25 % (22-44); MD NO; MEAN CORPUSCULAR HEMOGLOBIN 29.3 pg (27.5-34.5); MEAN CORPUSCULAR HGB CONC 32.7 g/dL (33.2-36.2); MEAN CORPUSCULAR VOLUME 89.7 fL (81-97); MEAN PLATELET VOLUME 8.1 fL (7.4-10.4); MONOCYTES # (AUTO) 0.46 x10^3/uL (0.2-0.8); MONOCYTES % (AUTO) 9 % (2-9); NEUTROPHILS # (AUTO) 3.35 x10^3/uL (1.8-6.8); NEUTROPHILS % (AUTO) 62 % (42-75); PLATELET COUNT 274 x10^3/uL (130-400); RED BLOOD COUNT 4.59 x10^6/uL (4.38-5.82); RED CELL DISTRIBUTION WIDTH 13.9 % (9.4-14.8)
[2019-12-01 05:55] LABS: ANION GAP 6 mmol/L (5-15); CALCIUM 8.7 mg/dL (8.5-10.1); CHLORIDE 102 mmol/L (98-107); CREATININE 0.91 mg/dL (0.7-1.3)
[2019-12-01 07:46] VITALS: BP 153/94
[2019-12-01] MEDS: LACTATED RINGERS 1,000 ML IV SCH ×2 (08:00→19:19)
[2019-12-01] MEDS: MAGNESIUM HYDROXIDE 8%, 30ML UDC PO SCH (08:24)
[2019-12-01] MEDS: DOCUSATE 100 MG CAPSULE PO SCH (08:24)
[2019-12-01] MEDS: MULTIVITAMIN 1 TABLET PO SCH (08:25)
[2019-12-01] MEDS: FOLIC ACID 1 MG TABLET PO SCH (08:25)
[2019-12-01] MEDS: LEVETIRACETAM 500 MG TABLET PO SCH ×2 (08:25→20:20)
[2019-12-01 15:02] VITALS: BP 169/96
[2019-12-01 18:58] VITALS: BP 146/95
[2019-12-01] MEDS: ENOXAPARIN 40 MG/0.4 ML SQ SCH (20:21)
[2019-12-02 00:31] VITALS: BP 135/87
[2019-12-02] MEDS: LACTATED RINGERS 1,000 ML IV SCH (04:53)
[2019-12-02 05:29] LABS: BASOPHILS # (AUTO) 0.03 x10^3/uL (0-0.1); BASOPHILS % (AUTO) 1 % (0-1); EOSINOPHILS # (AUTO) 0.23 x10^3/uL (0-0.4); EOSINOPHILS % (AUTO) 4 % (1-7); LYMPHOCYTES # (AUTO) 1.51 x10^3/uL (1-3.4); LYMPHOCYTES % (AUTO) 26 % (22-44); MD NO; MEAN CORPUSCULAR HEMOGLOBIN 29.2 pg (27.5-34.5); MEAN CORPUSCULAR HGB CONC 32.4 g/dL (33.2-36.2); MEAN CORPUSCULAR VOLUME 90.4 fL (81-97); MEAN PLATELET VOLUME 8.3 fL (7.4-10.4); MONOCYTES % (AUTO) 7 % (2-9); NEUTROPHILS # (AUTO) 3.56 x10^3/uL (1.8-6.8); NEUTROPHILS % (AUTO) 62 % (42-75); PLATELET COUNT 273 x10^3/uL (130-400); RED BLOOD COUNT 4.73 x10^6/uL (4.38-5.82)
[2019-12-02 05:46] LABS: ANION GAP 9 mmol/L (5-15); CALCIUM 8.9 mg/dL (8.5-10.1); CHLORIDE 101 mmol/L (98-107); CREATININE 0.94 mg/dL (0.7-1.3)
[2019-12-02 07:40] VITALS: BP 173/107
[2019-12-02] MEDS: LEVETIRACETAM 500 MG TABLET PO SCH ×2 (08:10→22:03)
[2019-12-02] MEDS: FOLIC ACID 1 MG TABLET PO SCH (08:10)
[2019-12-02] MEDS: ENALAPRILAT 1.25 MG/ML, 2ML IV PRN (08:11)
[2019-12-02] MEDS: MULTIVITAMIN 1 TABLET PO SCH (08:11)
[2019-12-02] MEDS: MAGNESIUM HYDROXIDE 8%, 30ML UDC PO SCH (08:15)
[2019-12-02] MEDS: DOCUSATE 100 MG CAPSULE PO SCH (08:15)
[2019-12-02] MEDS: DEXAMETHASONE 4 MG/ML, 1ML IVPush SCH ×3 (10:37→22:03)
[2019-12-02 13:10] VITALS: BP 136/91
[2019-12-02 19:50] VITALS: BP 150/95
[2019-12-02] MEDS: ENOXAPARIN 40 MG/0.4 ML SQ SCH (22:03)
[2019-12-03 00:17] VITALS: BP 151/97
[2019-12-03] MEDS: ACETAMINOPHEN 325 MG TABLET PO PRN ×2 (02:03→17:57)
[2019-12-03] MEDS: DEXAMETHASONE 4 MG/ML, 1ML IVPush SCH ×4 (03:26→21:05)
[2019-12-03 06:54] VITALS: BP 152/96
[2019-12-03] MEDS: MAGNESIUM HYDROXIDE 8%, 30ML UDC PO SCH (08:15)
[2019-12-03] MEDS: LEVETIRACETAM 500 MG TABLET PO SCH ×2 (08:15→21:05)
[2019-12-03] MEDS: DOCUSATE 100 MG CAPSULE PO SCH (08:15)
[2019-12-03] MEDS: FOLIC ACID 1 MG TABLET PO SCH (08:16)
[2019-12-03] MEDS: MULTIVITAMIN 1 TABLET PO SCH (08:16)
[2019-12-03 12:49] VITALS: BP 143/91
[2019-12-03 19:34] VITALS: BP 124/82
[2019-12-03] MEDS: ENOXAPARIN 40 MG/0.4 ML SQ SCH (21:05)
[2019-12-04] MEDS: ENALAPRILAT 1.25 MG/ML, 2ML IV PRN (00:49)
[2019-12-04] MEDS: ACETAMINOPHEN 325 MG TABLET PO PRN (00:50)
[2019-12-04 01:18] VITALS: BP 160/108
[2019-12-04 01:40] VITALS: BP 134/87
[2019-12-04] MEDS: DEXAMETHASONE 4 MG/ML, 1ML IVPush SCH ×4 (03:58→21:54)
[2019-12-04 05:27] LABS: ANION GAP 8 mmol/L (5-15); CALCIUM 9.2 mg/dL (8.5-10.1); CHLORIDE 106 mmol/L (98-107); CREATININE 0.99 mg/dL (0.7-1.3)
[2019-12-04 05:38] LABS: BASOPHILS # (AUTO) 0.01 x10^3/uL (0-0.1); BASOPHILS % (AUTO) 0 % (0-1); EOSINOPHILS % (AUTO) 0 % (1-7); LYMPHOCYTES # (AUTO) 0.68 x10^3/uL (1-3.4); LYMPHOCYTES % (AUTO) 5 % (22-44); MD NO; MEAN CORPUSCULAR HEMOGLOBIN 29.3 pg (27.5-34.5); MEAN CORPUSCULAR HGB CONC 32.7 g/dL (33.2-36.2); MEAN CORPUSCULAR VOLUME 89.6 fL (81-97); MEAN PLATELET VOLUME 8.8 fL (7.4-10.4); MONOCYTES # (AUTO) 0.51 x10^3/uL (0.2-0.8); MONOCYTES % (AUTO) 4 % (2-9); NEUTROPHILS # (AUTO) 13.02 x10^3/uL (1.8-6.8); NEUTROPHILS % (AUTO) 92 % (42-75); PLATELET COUNT 337 x10^3/uL (130-400); RED BLOOD COUNT 4.74 x10^6/uL (4.38-5.82); RED CELL DISTRIBUTION WIDTH 13.8 % (9.4-14.8)
[2019-12-04 07:11] VITALS: BP 124/80
[2019-12-04] MEDS: LEVETIRACETAM 500 MG TABLET PO SCH ×2 (07:49→20:06)
[2019-12-04] MEDS: MULTIVITAMIN 1 TABLET PO SCH (07:49)
[2019-12-04] MEDS: FOLIC ACID 1 MG TABLET PO SCH (07:49)
[2019-12-04] MEDS: DOCUSATE 100 MG CAPSULE PO SCH (07:49)
[2019-12-04] MEDS: MAGNESIUM HYDROXIDE 8%, 30ML UDC PO SCH (07:50)
[2019-12-04 14:03] VITALS: BP 116/69
[2019-12-04 18:19] VITALS: BP 134/83
[2019-12-04] MEDS: ENOXAPARIN 40 MG/0.4 ML SQ SCH (20:05)
[2019-12-04] MEDS: POLYETHYLENE GLYCOL 17 GM PACKET PO PRN (20:05)
[2019-12-05 01:51] VITALS: BP 180/101
[2019-12-05] MEDS: ENALAPRILAT 1.25 MG/ML, 2ML IV PRN (01:55)
[2019-12-05] MEDS ORDERED: BISACODYL 10 MG SUPP PR ONE (02:00)
[2019-12-05 03:09] VITALS: BP 130/77
[2019-12-05] MEDS: DEXAMETHASONE 4 MG/ML, 1ML IVPush SCH ×4 (04:04→21:56)
[2019-12-05 06:02] LABS: ANION GAP 12 mmol/L (5-15); CALCIUM 9.1 mg/dL (8.5-10.1); CHLORIDE 106 mmol/L (98-107); CREATININE 0.91 mg/dL (0.7-1.3)
[2019-12-05 06:03] LABS: BASOPHILS # (AUTO) 0.01 x10^3/uL (0-0.1); BASOPHILS % (AUTO) 0 % (0-1); EOSINOPHILS # (AUTO) 0.02 x10^3/uL (0-0.4); EOSINOPHILS % (AUTO) 0 % (1-7); LYMPHOCYTES % (AUTO) 6 % (22-44); MD NO; MEAN CORPUSCULAR HEMOGLOBIN 29.9 pg (27.5-34.5); MEAN CORPUSCULAR HGB CONC 33.2 g/dL (33.2-36.2); MEAN CORPUSCULAR VOLUME 89.9 fL (81-97); MONOCYTES # (AUTO) 0.29 x10^3/uL (0.2-0.8); MONOCYTES % (AUTO) 3 % (2-9); NEUTROPHILS # (AUTO) 9.63 x10^3/uL (1.8-6.8); NEUTROPHILS % (AUTO) 91 % (42-75); PLATELET COUNT 316 x10^3/uL (130-400); RED BLOOD COUNT 4.55 x10^6/uL (4.38-5.82); RED CELL DISTRIBUTION WIDTH 13.9 % (9.4-14.8)
[2019-12-05 09:29] VITALS: BP 131/85
[2019-12-05] MEDS: MULTIVITAMIN 1 TABLET PO SCH (09:31)
[2019-12-05] MEDS: FOLIC ACID 1 MG TABLET PO SCH (09:31)
[2019-12-05] MEDS: DOCUSATE 100 MG CAPSULE PO SCH (09:31)
[2019-12-05] MEDS: LEVETIRACETAM 500 MG TABLET PO SCH ×2 (09:31→21:35)
[2019-12-05] MEDS: MAGNESIUM HYDROXIDE 8%, 30ML UDC PO SCH (09:32)
[2019-12-05 13:25] VITALS: BP 139/91
[2019-12-05 19:35] VITALS: BP 152/93
[2019-12-05] MEDS: ENOXAPARIN 40 MG/0.4 ML SQ SCH (21:35)
[2019-12-06 00:45] VITALS: BP 148/83
[2019-12-06] MEDS: DEXAMETHASONE 4 MG/ML, 1ML IVPush SCH ×4 (03:43→21:09)
[2019-12-06 06:16] LABS: ANION GAP 6 mmol/L (5-15); BASOPHILS # (AUTO) 0.01 x10^3/uL (0-0.1); BASOPHILS % (AUTO) 0 % (0-1); CHLORIDE 104 mmol/L (98-107); CREATININE 0.87 mg/dL (0.7-1.3); EOSINOPHILS # (AUTO) 0.01 x10^3/uL (0-0.4); EOSINOPHILS % (AUTO) 0 % (1-7); LYMPHOCYTES % (AUTO) 6 % (22-44); MD NO; MEAN CORPUSCULAR HEMOGLOBIN 29.5 pg (27.5-34.5); MEAN CORPUSCULAR VOLUME 89.5 fL (81-97); MEAN PLATELET VOLUME 8.7 fL (7.4-10.4); MONOCYTES # (AUTO) 0.28 x10^3/uL (0.2-0.8); MONOCYTES % (AUTO) 3 % (2-9); NEUTROPHILS % (AUTO) 90 % (42-75); PLATELET COUNT 329 x10^3/uL (130-400); RED BLOOD COUNT 4.87 x10^6/uL (4.38-5.82)
[2019-12-06 08:04] VITALS: BP 182/103
[2019-12-06] MEDS: LEVETIRACETAM 500 MG TABLET PO SCH ×2 (08:35→21:09)
[2019-12-06] MEDS: FOLIC ACID 1 MG TABLET PO SCH (08:35)
[2019-12-06] MEDS: MAGNESIUM HYDROXIDE 8%, 30ML UDC PO SCH (08:36)
[2019-12-06] MEDS: MULTIVITAMIN 1 TABLET PO SCH (08:36)
[2019-12-06] MEDS: DOCUSATE 100 MG CAPSULE PO SCH (08:36)
[2019-12-06] MEDS: IBUPROFEN 600 MG TABLET PO PRN ×2 (08:36→16:06)
[2019-12-06 08:46] VITALS: BP 144/88
[2019-12-06 12:39] VITALS: BP 152/96
[2019-12-06] MEDS: LIDODERM 5% PATCH TD SCH (13:05)
[2019-12-06] MEDS: BISACODYL 10 MG SUPP PR PRN (15:59)
[2019-12-06] MEDS: LACTULOSE 20 GM/30 ML UDC PO PRN (15:59)
[2019-12-06] MEDS: ACETAMINOPHEN 325 MG TABLET PO PRN (16:09)
[2019-12-06] MEDS: DOCUSATE 100 MG CAPSULE PO PRN (16:10)
[2019-12-06 18:58] VITALS: BP 157/94
[2019-12-06] MEDS: ENOXAPARIN 40 MG/0.4 ML SQ SCH (21:10)
[2019-12-06] MEDS: LORazepam 2 MG/ML, 1ML IV PRN (21:10)
[2019-12-06] MEDS: LIDODERM REMOVE PATCH NOTE XX SCH (23:54)
[2019-12-07] MEDS: IBUPROFEN 600 MG TABLET PO PRN (00:50)
[2019-12-07 01:57] VITALS: BP 169/113
[2019-12-07] MEDS: LORazepam 2 MG/ML, 1ML IV PRN (02:54)
[2019-12-07] MEDS: hydrALAzine 20 MG/ML, 1ML IV PRN (03:21)
[2019-12-07] MEDS: DEXAMETHASONE 4 MG/ML, 1ML IVPush SCH ×4 (03:21→21:40)
[2019-12-07 05:34] LABS: ANION GAP 6 mmol/L (5-15); CALCIUM 8.3 mg/dL (8.5-10.1); CHLORIDE 105 mmol/L (98-107)
[2019-12-07 05:37] LABS: CREATININE 0.85 mg/dL (0.7-1.3)
[2019-12-07 05:39] LABS: BASOPHILS # (AUTO) 0.01 x10^3/uL (0-0.1); BASOPHILS % (AUTO) 0 % (0-1); EOSINOPHILS % (AUTO) 0 % (1-7); LYMPHOCYTES % (AUTO) 2 % (22-44); MD NO; MEAN CORPUSCULAR HEMOGLOBIN 29.3 pg (27.5-34.5); MEAN CORPUSCULAR HGB CONC 32.5 g/dL (33.2-36.2); MEAN CORPUSCULAR VOLUME 90.3 fL (81-97); MEAN PLATELET VOLUME 8.9 fL (7.4-10.4); MONOCYTES # (AUTO) 0.66 x10^3/uL (0.2-0.8); MONOCYTES % (AUTO) 5 % (2-9); NEUTROPHILS % (AUTO) 93 % (42-75); PLATELET COUNT 299 x10^3/uL (130-400); RED BLOOD COUNT 4.56 x10^6/uL (4.38-5.82)
[2019-12-07 07:13] VITALS: BP 137/90
[2019-12-07] MEDS: MAGNESIUM HYDROXIDE 8%, 30ML UDC PO SCH (09:00)
[2019-12-07] MEDS: FOLIC ACID 1 MG TABLET PO SCH (09:23)
[2019-12-07] MEDS: DOCUSATE 100 MG CAPSULE PO SCH (09:23)
[2019-12-07] MEDS: LEVETIRACETAM 500 MG TABLET PO SCH ×2 (09:23→21:40)
[2019-12-07] MEDS: MULTIVITAMIN 1 TABLET PO SCH (09:23)
[2019-12-07] MEDS: LIDODERM 5% PATCH TD SCH (12:02)
[2019-12-07 13:12] VITALS: BP 150/96
[2019-12-07 20:55] VITALS: BP 161/97
[2019-12-07] MEDS: ENOXAPARIN 40 MG/0.4 ML SQ SCH (21:40)
[2019-12-08 01:17] VITALS: BP 165/97
[2019-12-08] MEDS: LIDODERM REMOVE PATCH NOTE XX SCH (01:20)
[2019-12-08] MEDS: DEXAMETHASONE 4 MG/ML, 1ML IVPush SCH ×4 (03:49→21:28)
[2019-12-08 05:37] LABS: BASOPHILS % (AUTO) 0 % (0-1); EOSINOPHILS # (AUTO) 0.01 x10^3/uL (0-0.4); EOSINOPHILS % (AUTO) 0 % (1-7); LYMPHOCYTES # (AUTO) 0.27 x10^3/uL (1-3.4); LYMPHOCYTES % (AUTO) 2 % (22-44); MD NO; MEAN CORPUSCULAR HEMOGLOBIN 29.7 pg (27.5-34.5); MEAN CORPUSCULAR HGB CONC 32.9 g/dL (33.2-36.2); MEAN CORPUSCULAR VOLUME 90.2 fL (81-97); MEAN PLATELET VOLUME 8.8 fL (7.4-10.4); MONOCYTES # (AUTO) 0.57 x10^3/uL (0.2-0.8); MONOCYTES % (AUTO) 5 % (2-9); NEUTROPHILS # (AUTO) 11.57 x10^3/uL (1.8-6.8); NEUTROPHILS % (AUTO) 93 % (42-75); PLATELET COUNT 319 x10^3/uL (130-400); RED BLOOD COUNT 4.61 x10^6/uL (4.38-5.82); RED CELL DISTRIBUTION WIDTH 13.9 % (9.4-14.8)
[2019-12-08 05:45] LABS: ANION GAP 9 mmol/L (5-15); CALCIUM 8.6 mg/dL (8.5-10.1); CHLORIDE 101 mmol/L (98-107); CREATININE 0.82 mg/dL (0.7-1.3)
[2019-12-08 07:37] VITALS: BP 162/92
[2019-12-08] MEDS ORDERED: GADOTERATE 10 MMOL/20 ML SYR ONE (08:34)
[2019-12-08] MEDS: MAGNESIUM HYDROXIDE 8%, 30ML UDC PO SCH (09:00)
[2019-12-08] MEDS: LEVETIRACETAM 500 MG TABLET PO SCH ×2 (09:00→21:27)
[2019-12-08] MEDS ORDERED: LACTATED RINGERS 1,000 ML IV SCH (09:28)
[2019-12-08] MEDS ORDERED: CHLORHEXIDINE 15 ML UDC MM ONE (09:30)
[2019-12-08] MEDS ORDERED: FENTANYL PF 250 MCG/5ML ONE (10:11)
[2019-12-08] MEDS ORDERED: MANNITOL PMX 20% 0 ML ONE (10:13)
[2019-12-08] MEDS ORDERED: BACITRACIN OINT 500U/GM, 15 GM ONE (10:13)
[2019-12-08] MEDS ORDERED: BACITRACIN 50,000 UNIT ONE (10:13)
[2019-12-08] MEDS ORDERED: BUPIVACAINE/PF-EPI 0.5% 1:200K ONE (10:13)
[2019-12-08] MEDS ORDERED: CEFAZOLIN 1,000 MG ONE (10:50)
[2019-12-08] MEDS ORDERED: DEXAMETHASONE 4 MG/ML, 1ML ONE ×2 (11:01)
[2019-12-08] MEDS ORDERED: EPHEDRINE 50 MG/ML, 1ML ONE (11:03)
[2019-12-08] MEDS ORDERED: ROCURONIUM 10MG/ML,5ML ONE (11:48)
[2019-12-08] MEDS ORDERED: ONDANSETRON 2MG/ML, 2ML ONE (11:48)
[2019-12-08] MEDS ORDERED: PROPOFOL 10 MG/ML, 20ML ONE (11:48)
[2019-12-08] MEDS ORDERED: hydrALAzine 20 MG/ML, 1ML IV PRN (12:00)
[2019-12-08] MEDS ORDERED: PROMETHAZINE 25 MG/ML, 1ML IVPush PRN (12:00)
[2019-12-08] MEDS ORDERED: FENTANYL PF 100 MCG/2ML IV PRN (12:00)
[2019-12-08] MEDS ORDERED: morphine SULFATE 10 MG/ML, 1ML IVPush PRN (12:00)
[2019-12-08] MEDS ORDERED: LABETALOL 5MG/ML, 20ML IV PRN (12:00)
[2019-12-08] MEDS ORDERED: LORazepam 2 MG/ML, 1ML IVPush PRN ×2 (12:00→14:30)
[2019-12-08] MEDS ORDERED: ONDANSETRON 2MG/ML, 2ML IVPush PRN (12:00)
[2019-12-08] MEDS ORDERED: OXYcodone 5 MG/5 ML ORAL.SOL UDC PO PRN (12:00)
[2019-12-08] MEDS ORDERED: MEPERIDINE/PF 25MG/0.5ML IVPush PRN (12:00)
[2019-12-08] MEDS ORDERED: THROMBIN 5,000 UNIT VIAL TP ONE (12:18)
[2019-12-08] MEDS: LIDODERM 5% PATCH TD SCH (13:00)
[2019-12-08] MEDS ORDERED: ACETAMINOPHEN 650 MG SUPP PR PRN ×2 (14:30)
[2019-12-08] MEDS ORDERED: DIPHENHYDRAMINE 50 MG/ML, 1ML IV PRN (14:30)
[2019-12-08] MEDS ORDERED: MAGNESIUM HYDROXIDE 8%, 30ML UDC PO PRN (14:30)
[2019-12-08] MEDS ORDERED: LABETALOL 5MG/ML, 20ML IV SCH (14:30)
[2019-12-08] MEDS ORDERED: LABETALOL 5MG/ML, 20ML IVPush PRN (14:30)
[2019-12-08] MEDS ORDERED: morphine SULFATE 10 MG/ML, 1ML IV PRN (14:30)
[2019-12-08] MEDS ORDERED: ACETAMINOPHEN 325 MG TABLET PO PRN (14:30)
[2019-12-08] MEDS: DOCUSATE 100 MG CAPSULE PO SCH (14:31)
[2019-12-08] MEDS: MULTIVITAMIN 1 TABLET PO SCH (14:31)
[2019-12-08] MEDS: FOLIC ACID 1 MG TABLET PO SCH (14:31)
[2019-12-08] MEDS: ACETAMINOPHEN 325 MG TABLET PO PRN (14:58)
[2019-12-08] MEDS ORDERED: LEVETIRACETAM 500 MG in SODIUM CHLORIDE 0.9% 100 ML IV SCH (15:00)
[2019-12-08] MEDS: morphine SULFATE 10 MG/ML, 1ML IV PRN ×2 (15:20→21:28)
[2019-12-08] MEDS: D5%-0.9% NACL+KCL 20MEQ 1,000 ML IV SCH (15:26)
[2019-12-08] MEDS: CEFAZOLIN PMX 1GM/50ML 50 ML IVPB SCH (19:02)
[2019-12-08] MEDS: LISINOPRIL 20 MG TABLET PO SCH (21:27)
[2019-12-09] MEDS: D5%-0.9% NACL+KCL 20MEQ 1,000 ML IV SCH (00:10)
[2019-12-09] MEDS: LIDODERM REMOVE PATCH NOTE XX SCH (01:00)
[2019-12-09] MEDS: morphine SULFATE 10 MG/ML, 1ML IV PRN (03:02)
[2019-12-09] MEDS: CEFAZOLIN PMX 1GM/50ML 50 ML IVPB SCH (03:04)
[2019-12-09] MEDS: DEXAMETHASONE 4 MG/ML, 1ML IVPush SCH ×4 (04:11→20:43)
[2019-12-09 04:20] LABS: HCT (SEDRATE) 36.1 % (39.2-51.8)
[2019-12-09 04:21] LABS: BASOPHILS # (AUTO) 0.01 x10^3/uL (0-0.1); BASOPHILS % (AUTO) 0 % (0-1); EOSINOPHILS % (AUTO) 0 % (1-7); LYMPHOCYTES # (AUTO) 0.33 x10^3/uL (1-3.4); LYMPHOCYTES % (AUTO) 3 % (22-44); MD NO; MEAN CORPUSCULAR HEMOGLOBIN 29.5 pg (27.5-34.5); MEAN CORPUSCULAR HGB CONC 32.7 g/dL (33.2-36.2); MEAN CORPUSCULAR VOLUME 90.2 fL (81-97); MEAN PLATELET VOLUME 8.8 fL (7.4-10.4); MONOCYTES # (AUTO) 0.46 x10^3/uL (0.2-0.8); MONOCYTES % (AUTO) 4 % (2-9); NEUTROPHILS # (AUTO) 9.88 x10^3/uL (1.8-6.8); NEUTROPHILS % (AUTO) 93 % (42-75); PLATELET COUNT 292 x10^3/uL (130-400)
[2019-12-09 04:31] LABS: CHLORIDE 103 mmol/L (98-107)
[2019-12-09 04:44] LABS: ALANINE AMINOTRANSFERASE 22 U/L (12-78); ALBUMIN 2.4 g/dL (3.4-5.0); ALKALINE PHOSPHATASE 44 U/L (45-117); ANION GAP 6 mmol/L (5-15); BILIRUBIN,TOTAL 0.2 mg/dL (0.2-1.0); CALCIUM 8.4 mg/dL (8.5-10.1); CREATININE 0.92 mg/dL (0.7-1.3); TOTAL PROTEIN 6.3 g/dL (6.4-8.2)
[2019-12-09] MEDS: SENNA/DOCUSATE TABLET PO SCH (08:44)
[2019-12-09] MEDS: LEVETIRACETAM 500 MG TABLET PO SCH ×2 (08:44→20:42)
[2019-12-09] MEDS: DOCUSATE 100 MG CAPSULE PO SCH (08:44)
[2019-12-09] MEDS: MAGNESIUM HYDROXIDE 8%, 30ML UDC PO SCH (08:45)
[2019-12-09] MEDS: LISINOPRIL 20 MG TABLET PO SCH ×2 (08:45→20:41)
[2019-12-09] MEDS: MULTIVITAMIN 1 TABLET PO SCH (08:45)
[2019-12-09] MEDS: FOLIC ACID 1 MG TABLET PO SCH (08:45)
[2019-12-09] MEDS: LIDODERM 5% PATCH TD SCH (13:00)
[2019-12-09 13:23] VITALS: BP 153/96
[2019-12-09] MEDS: OXYcodone/APAP 5/325MG TABLET PO PRN ×2 (14:09→20:40)
[2019-12-09 16:12] VITALS: BP 122/80
[2019-12-09 20:13] VITALS: BP 120/78
[2019-12-09] MEDS: ACETAMINOPHEN 325 MG TABLET PO PRN (23:35)
[2019-12-10] VITALS (9 sets, daily range): BP systolic 127–159; BP diastolic 74–98
[2019-12-10] MEDS: LIDODERM REMOVE PATCH NOTE XX SCH (01:00)
[2019-12-10] MEDS: OXYcodone/APAP 5/325MG TABLET PO PRN ×4 (03:43→20:30)
[2019-12-10] MEDS: DEXAMETHASONE 4 MG/ML, 1ML IVPush SCH ×4 (03:44→20:30)
[2019-12-10 05:25] LABS: ANION GAP 9 mmol/L (5-15); CALCIUM 8.6 mg/dL (8.5-10.1); CHLORIDE 103 mmol/L (98-107); CREATININE 0.78 mg/dL (0.7-1.3)
[2019-12-10] MEDS: MAGNESIUM HYDROXIDE 8%, 30ML UDC PO SCH (09:38)
[2019-12-10] MEDS: MULTIVITAMIN 1 TABLET PO SCH (09:40)
[2019-12-10] MEDS: LEVETIRACETAM 500 MG TABLET PO SCH ×2 (09:40→20:29)
[2019-12-10] MEDS: DOCUSATE 100 MG CAPSULE PO SCH (09:40)
[2019-12-10] MEDS: FOLIC ACID 1 MG TABLET PO SCH (09:40)
[2019-12-10] MEDS: LISINOPRIL 20 MG TABLET PO SCH ×2 (09:40→20:30)
[2019-12-10] MEDS: SENNA/DOCUSATE TABLET PO SCH (09:42)
[2019-12-10] MEDS: LIDODERM 5% PATCH TD SCH (13:48)
[2019-12-11] VITALS (10 sets, daily range): BP systolic 123–170; BP diastolic 74–96
[2019-12-11] MEDS: LIDODERM REMOVE PATCH NOTE XX SCH (01:00)
[2019-12-11] MEDS: DEXAMETHASONE 4 MG/ML, 1ML IVPush SCH ×2 (02:25→08:35)
[2019-12-11] MEDS: OXYcodone/APAP 5/325MG TABLET PO PRN ×4 (05:05→17:25)
[2019-12-11] MEDS: MAGNESIUM HYDROXIDE 8%, 30ML UDC PO SCH (08:34)
[2019-12-11] MEDS: LEVETIRACETAM 500 MG TABLET PO SCH ×2 (08:35→19:50)
[2019-12-11] MEDS: DOCUSATE 100 MG CAPSULE PO SCH (08:35)
[2019-12-11] MEDS: FOLIC ACID 1 MG TABLET PO SCH (08:35)
[2019-12-11] MEDS: MULTIVITAMIN 1 TABLET PO SCH (08:35)
[2019-12-11] MEDS: SENNA/DOCUSATE TABLET PO SCH (08:35)
[2019-12-11] MEDS: LISINOPRIL 20 MG TABLET PO SCH ×2 (08:35→19:50)
[2019-12-11] MEDS ORDERED: methylPREDNISolone SOD SUCC 40 MG/ML IV SCH (10:30)
[2019-12-11] MEDS: LIDODERM 5% PATCH TD SCH (13:22)
[2019-12-11] MEDS: POLYETHYLENE GLYCOL 17 GM PACKET PO PRN (13:23)
[2019-12-11] MEDS: ACETAMINOPHEN 325 MG TABLET PO PRN (14:28)
[2019-12-12] VITALS (9 sets, daily range): BP systolic 127–177; BP diastolic 79–93
[2019-12-12] MEDS: ENALAPRILAT 1.25 MG/ML, 2ML IV PRN (00:24)
[2019-12-12] MEDS: OXYcodone/APAP 5/325MG TABLET PO PRN ×5 (00:24→17:22)
[2019-12-12] MEDS: LIDODERM REMOVE PATCH NOTE XX SCH (01:00)
[2019-12-12] MEDS: hydrALAzine 20 MG/ML, 1ML IV PRN (04:23)
[2019-12-12 06:08] LABS: BASOPHILS # (AUTO) 0.01 x10^3/uL (0-0.1); BASOPHILS % (AUTO) 0 % (0-1); EOSINOPHILS % (AUTO) 0 % (1-7); LYMPHOCYTES # (AUTO) 0.44 x10^3/uL (1-3.4); LYMPHOCYTES % (AUTO) 3 % (22-44); MD NO; MEAN CORPUSCULAR HEMOGLOBIN 29.3 pg (27.5-34.5); MEAN CORPUSCULAR HGB CONC 32.9 g/dL (33.2-36.2); MEAN CORPUSCULAR VOLUME 89.1 fL (81-97); MEAN PLATELET VOLUME 8.5 fL (7.4-10.4); MONOCYTES # (AUTO) 0.69 x10^3/uL (0.2-0.8); MONOCYTES % (AUTO) 4 % (2-9); NEUTROPHILS # (AUTO) 14.88 x10^3/uL (1.8-6.8); NEUTROPHILS % (AUTO) 93 % (42-75); PLATELET COUNT 320 x10^3/uL (130-400); RED BLOOD COUNT 4.47 x10^6/uL (4.38-5.82); RED CELL DISTRIBUTION WIDTH 13.6 % (9.4-14.8)
[2019-12-12 06:20] LABS: ANION GAP 7 mmol/L (5-15); CALCIUM 8.5 mg/dL (8.5-10.1); CHLORIDE 103 mmol/L (98-107); CREATININE 0.68 mg/dL (0.7-1.3)
[2019-12-12] MEDS: MAGNESIUM HYDROXIDE 8%, 30ML UDC PO SCH (08:34)
[2019-12-12] MEDS: LISINOPRIL 20 MG TABLET PO SCH ×2 (08:35→20:10)
[2019-12-12] MEDS: DOCUSATE 100 MG CAPSULE PO SCH (08:35)
[2019-12-12] MEDS: SENNA/DOCUSATE TABLET PO SCH (08:35)
[2019-12-12] MEDS: LEVETIRACETAM 500 MG TABLET PO SCH ×2 (08:35→20:10)
[2019-12-12] MEDS: MULTIVITAMIN 1 TABLET PO SCH (08:35)
[2019-12-12] MEDS: FOLIC ACID 1 MG TABLET PO SCH (08:35)
[2019-12-12 12:53] LABS: ANA SCREEN NEGATIVE (Negative)
[2019-12-12] MEDS: LIDODERM 5% PATCH TD SCH (13:59)
[2019-12-12] MEDS: POLYETHYLENE GLYCOL 17 GM PACKET PO PRN (17:22)
[2019-12-12] MEDS: IMMUNE GLOBULIN IV SCH ×2 (17:26→17:27)
[2019-12-13] MEDS: LIDODERM REMOVE PATCH NOTE XX SCH ×2 (01:09→23:47)
[2019-12-13 02:00] VITALS: BP 173/92
[2019-12-13] MEDS: OXYcodone/APAP 5/325MG TABLET PO PRN ×5 (03:06→22:35)
[2019-12-13] MEDS: BISACODYL 10 MG SUPP PR PRN (03:06)
[2019-12-13 05:12] VITALS: BP 172/88
[2019-12-13] MEDS: hydrALAzine 20 MG/ML, 1ML IV PRN (05:28)
[2019-12-13 06:03] LABS: ANION GAP 5 mmol/L (5-15); CALCIUM 8.2 mg/dL (8.5-10.1); CHLORIDE 100 mmol/L (98-107)
[2019-12-13 06:03] LABS: MEAN CORPUSCULAR HEMOGLOBIN 29.8 pg (27.5-34.5); MEAN CORPUSCULAR HGB CONC 32.7 g/dL (33.2-36.2); MEAN CORPUSCULAR VOLUME 91.1 fL (81-97); MEAN PLATELET VOLUME 8.3 fL (7.4-10.4); PLATELET COUNT 303 x10^3/uL (130-400); RED BLOOD COUNT 4.13 x10^6/uL (4.38-5.82); RED CELL DISTRIBUTION WIDTH 13.4 % (9.4-14.8)
[2019-12-13 06:04] LABS: CREATININE 0.81 mg/dL (0.7-1.3)
[2019-12-13 07:17] LABS: BASOPHILS # (AUTO) 0.01 x10^3/uL (0-0.1); BASOPHILS % (AUTO) 0 % (0-1); EOSINOPHILS % (AUTO) 0 % (1-7); LYMPHOCYTES # (AUTO) 0.32 x10^3/uL (1-3.4); LYMPHOCYTES % (AUTO) 2 % (22-44); MD SCAN; MONOCYTES # (AUTO) 0.44 x10^3/uL (0.2-0.8); MONOCYTES % (AUTO) 3 % (2-9); NEUTROPHILS # (AUTO) 14.27 x10^3/uL (1.8-6.8); NEUTROPHILS % (AUTO) 95 % (42-75)
[2019-12-13 07:36] VITALS: BP 144/85
[2019-12-13] MEDS: SENNA/DOCUSATE TABLET PO SCH (08:45)
[2019-12-13] MEDS: DOCUSATE 100 MG CAPSULE PO SCH (08:45)
[2019-12-13] MEDS: LEVETIRACETAM 500 MG TABLET PO SCH ×2 (08:45→20:16)
[2019-12-13] MEDS: FOLIC ACID 1 MG TABLET PO SCH (08:46)
[2019-12-13] MEDS: MAGNESIUM HYDROXIDE 8%, 30ML UDC PO SCH (08:46)
[2019-12-13] MEDS: MULTIVITAMIN 1 TABLET PO SCH (08:46)
[2019-12-13] MEDS: LISINOPRIL 20 MG TABLET PO SCH ×2 (08:46→20:16)
[2019-12-13 15:16] VITALS: BP 124/74
[2019-12-13] MEDS: IMMUNE GLOBULIN IV SCH (16:29)
[2019-12-13] MEDS: LIDODERM 5% PATCH TD SCH (16:33)
[2019-12-13 18:46] VITALS: BP 123/83
[2019-12-13 20:31] VITALS: BP 131/82
[2019-12-14] VITALS (8 sets, daily range): BP systolic 146–174; BP diastolic 80–103
[2019-12-14] MEDS: hydrALAzine 20 MG/ML, 1ML IV PRN (04:07)
[2019-12-14] MEDS: OXYcodone/APAP 5/325MG TABLET PO PRN ×3 (04:40→20:50)
[2019-12-14] MEDS: LEVETIRACETAM 500 MG TABLET PO SCH ×2 (08:50→20:00)
[2019-12-14] MEDS: SENNA/DOCUSATE TABLET PO SCH (08:51)
[2019-12-14] MEDS: MAGNESIUM HYDROXIDE 8%, 30ML UDC PO SCH (08:51)
[2019-12-14] MEDS: FOLIC ACID 1 MG TABLET PO SCH (08:51)
[2019-12-14] MEDS: MULTIVITAMIN 1 TABLET PO SCH (08:51)
[2019-12-14] MEDS: DOCUSATE 100 MG CAPSULE PO SCH (08:51)
[2019-12-14] MEDS: LISINOPRIL 20 MG TABLET PO SCH ×2 (08:51→20:01)
[2019-12-14] MEDS: IMMUNE GLOBULIN IV SCH (17:00)
[2019-12-14] MEDS: LIDODERM 5% PATCH TD SCH (17:00)
[2019-12-15] MEDS: LIDODERM REMOVE PATCH NOTE XX SCH (00:21)
[2019-12-15] MEDS: OXYcodone/APAP 5/325MG TABLET PO PRN ×5 (01:19→23:18)
[2019-12-15] MEDS: BISACODYL 10 MG SUPP PR PRN (01:27)
[2019-12-15 05:33] LABS: BASOPHILS # (AUTO) 0.03 x10^3/uL (0-0.1); BASOPHILS % (AUTO) 0 % (0-1); EOSINOPHILS # (AUTO) 0.03 x10^3/uL (0-0.4); EOSINOPHILS % (AUTO) 0 % (1-7); LYMPHOCYTES # (AUTO) 0.35 x10^3/uL (1-3.4); LYMPHOCYTES % (AUTO) 3 % (22-44); MD NO; MEAN CORPUSCULAR HEMOGLOBIN 29.3 pg (27.5-34.5); MEAN CORPUSCULAR VOLUME 88.7 fL (81-97); MEAN PLATELET VOLUME 8.3 fL (7.4-10.4); MONOCYTES # (AUTO) 0.29 x10^3/uL (0.2-0.8); MONOCYTES % (AUTO) 3 % (2-9); NEUTROPHILS # (AUTO) 11.08 x10^3/uL (1.8-6.8); NEUTROPHILS % (AUTO) 94 % (42-75); PLATELET COUNT 265 x10^3/uL (130-400); RED BLOOD COUNT 4.24 x10^6/uL (4.38-5.82); RED CELL DISTRIBUTION WIDTH 14.1 % (9.4-14.8)
[2019-12-15 05:35] LABS: ALANINE AMINOTRANSFERASE 27 U/L (12-78); ALBUMIN 2.2 g/dL (3.4-5.0); ANION GAP 3 mmol/L (5-15); CHLORIDE 101 mmol/L (98-107); CREATININE 0.81 mg/dL (0.7-1.3)
[2019-12-15 05:37] LABS: ALKALINE PHOSPHATASE 46 U/L (45-117); BILIRUBIN,TOTAL 0.3 mg/dL (0.2-1.0); TOTAL PROTEIN 7.8 g/dL (6.4-8.2)
[2019-12-15 05:39] VITALS: BP 177/96
[2019-12-15] MEDS: hydrALAzine 20 MG/ML, 1ML IV PRN (05:43)
[2019-12-15 07:09] VITALS: BP 133/86
[2019-12-15] MEDS: LISINOPRIL 20 MG TABLET PO SCH ×2 (09:00→20:41)
[2019-12-15] MEDS ORDERED: LISINOPRIL 10 MG TABLET ONE ×2 (09:07→20:30)
[2019-12-15] MEDS: MAGNESIUM HYDROXIDE 8%, 30ML UDC PO SCH (09:09)
[2019-12-15] MEDS: MULTIVITAMIN 1 TABLET PO SCH (09:09)
[2019-12-15] MEDS: FOLIC ACID 1 MG TABLET PO SCH (09:10)
[2019-12-15] MEDS: DOCUSATE 100 MG CAPSULE PO SCH (09:10)
[2019-12-15] MEDS: LEVETIRACETAM 500 MG TABLET PO SCH ×2 (09:10→20:41)
[2019-12-15] MEDS: SENNA/DOCUSATE TABLET PO SCH (09:10)
[2019-12-15 12:00] VITALS: BP 155/89
[2019-12-15] MEDS: LIDODERM 5% PATCH TD SCH (17:00)
[2019-12-15] MEDS: IMMUNE GLOBULIN IV SCH (17:19)
[2019-12-15 18:33] VITALS: BP 132/83
[2019-12-16 00:47] VITALS: BP 145/82
[2019-12-16 04:10] LABS: BASOPHILS # (AUTO) 0.22 x10^3/uL (0-0.1); BASOPHILS % (AUTO) 2 % (0-1); EOSINOPHILS # (AUTO) 0.01 x10^3/uL (0-0.4); EOSINOPHILS % (AUTO) 0 % (1-7); LYMPHOCYTES # (AUTO) 0.28 x10^3/uL (1-3.4); LYMPHOCYTES % (AUTO) 2 % (22-44); MD NO; MEAN CORPUSCULAR HEMOGLOBIN 29.2 pg (27.5-34.5); MEAN CORPUSCULAR HGB CONC 32.8 g/dL (33.2-36.2); MEAN PLATELET VOLUME 7.9 fL (7.4-10.4); MONOCYTES # (AUTO) 0.32 x10^3/uL (0.2-0.8); MONOCYTES % (AUTO) 3 % (2-9); NEUTROPHILS # (AUTO) 12.45 x10^3/uL (1.8-6.8); NEUTROPHILS % (AUTO) 94 % (42-75); PLATELET COUNT 255 x10^3/uL (130-400); RED BLOOD COUNT 4.07 x10^6/uL (4.38-5.82); RED CELL DISTRIBUTION WIDTH 13.8 % (9.4-14.8)
[2019-12-16] MEDS: LIDODERM REMOVE PATCH NOTE XX SCH (04:20)
[2019-12-16 04:23] LABS: ANION GAP 4 mmol/L (5-15); CHLORIDE 102 mmol/L (98-107)
[2019-12-16 04:24] LABS: CREATININE 0.84 mg/dL (0.7-1.3)
[2019-12-16] MEDS: OXYcodone/APAP 5/325MG TABLET PO PRN ×4 (04:48→19:44)
[2019-12-16 07:06] VITALS: BP 178/90
[2019-12-16] MEDS ORDERED: LISINOPRIL 10 MG TABLET ONE ×2 (09:51→20:02)
[2019-12-16] MEDS: MULTIVITAMIN 1 TABLET PO SCH (09:54)
[2019-12-16] MEDS: FOLIC ACID 1 MG TABLET PO SCH (09:54)
[2019-12-16] MEDS: MAGNESIUM HYDROXIDE 8%, 30ML UDC PO SCH (09:54)
[2019-12-16] MEDS: DOCUSATE 100 MG CAPSULE PO SCH (09:54)
[2019-12-16] MEDS: LEVETIRACETAM 500 MG TABLET PO SCH ×2 (09:54→20:05)
[2019-12-16] MEDS: LISINOPRIL 20 MG TABLET PO SCH ×2 (09:55→20:05)
[2019-12-16] MEDS: SENNA/DOCUSATE TABLET PO SCH (09:55)
[2019-12-16 10:10] VITALS: BP 144/83
[2019-12-16 12:39] VITALS: BP 159/97
[2019-12-16] MEDS: LIDODERM 5% PATCH TD SCH (16:21)
[2019-12-16] MEDS: BISACODYL 10 MG SUPP PR PRN (20:05)
[2019-12-16 20:07] VITALS: BP 142/84
[2019-12-17 00:35] VITALS: BP 132/65
[2019-12-17] MEDS: OXYcodone/APAP 5/325MG TABLET PO PRN ×5 (02:03→20:06)
[2019-12-17] MEDS: LIDODERM REMOVE PATCH NOTE XX SCH (03:23)
[2019-12-17 07:32] VITALS: BP 138/68
[2019-12-17] MEDS ORDERED: LISINOPRIL 10 MG TABLET ONE ×2 (08:54→20:01)
[2019-12-17] MEDS: LISINOPRIL 20 MG TABLET PO SCH ×2 (09:00→20:04)
[2019-12-17] MEDS: MULTIVITAMIN 1 TABLET PO SCH (09:02)
[2019-12-17] MEDS: AMLODIPINE 10 MG TAB PO SCH (09:02)
[2019-12-17] MEDS: FOLIC ACID 1 MG TABLET PO SCH (09:02)
[2019-12-17] MEDS: DOCUSATE 100 MG CAPSULE PO SCH (09:02)
[2019-12-17] MEDS: MAGNESIUM HYDROXIDE 8%, 30ML UDC PO SCH (09:03)
[2019-12-17] MEDS: SENNA/DOCUSATE TABLET PO SCH (09:03)
[2019-12-17] MEDS: LEVETIRACETAM 500 MG TABLET PO SCH ×2 (09:03→20:05)
[2019-12-17 14:30] VITALS: BP 140/89
[2019-12-17] MEDS: LIDODERM 5% PATCH TD SCH (16:23)
[2019-12-17 17:56] LABS: MICROSCOPIC NOT IND
[2019-12-17 20:05] VITALS: BP 120/78
[2019-12-18] MEDS: OXYcodone/APAP 5/325MG TABLET PO PRN ×5 (01:01→20:15)
[2019-12-18 02:13] VITALS: BP 157/88
[2019-12-18] MEDS: LIDODERM REMOVE PATCH NOTE XX SCH (04:57)
[2019-12-18 07:33] VITALS: BP 162/92
[2019-12-18] MEDS ORDERED: LISINOPRIL 10 MG TABLET ONE ×2 (08:02→20:04)
[2019-12-18] MEDS: LEVETIRACETAM 500 MG TABLET PO SCH (08:28)
[2019-12-18] MEDS: DOCUSATE 100 MG CAPSULE PO SCH (08:29)
[2019-12-18] MEDS: AMLODIPINE 10 MG TAB PO SCH (08:29)
[2019-12-18] MEDS: SENNA/DOCUSATE TABLET PO SCH (08:29)
[2019-12-18] MEDS: LISINOPRIL 20 MG TABLET PO SCH ×2 (08:29→20:15)
[2019-12-18] MEDS: MULTIVITAMIN 1 TABLET PO SCH (08:29)
[2019-12-18] MEDS: MAGNESIUM HYDROXIDE 8%, 30ML UDC PO SCH (08:29)
[2019-12-18] MEDS: FOLIC ACID 1 MG TABLET PO SCH (08:29)
[2019-12-18] MEDS: VALPROATE SODIUM 500 MG in DEXTROSE 5% 100 ML IV SCH ×2 (10:58→20:14)
[2019-12-18] MEDS: LIDODERM 5% PATCH TD SCH (14:42)
[2019-12-18 15:59] VITALS: BP 111/81
[2019-12-18 18:22] VITALS: BP 134/91
[2019-12-18] MEDS: BISACODYL 10 MG SUPP PR PRN (20:17)
[2019-12-19 00:34] VITALS: BP 170/95
[2019-12-19] MEDS: OXYcodone/APAP 5/325MG TABLET PO PRN ×6 (01:11→22:28)
[2019-12-19 02:25] VITALS: BP 137/83
[2019-12-19] MEDS: LIDODERM REMOVE PATCH NOTE XX SCH (04:29)
[2019-12-19 07:35] VITALS: BP 175/99
[2019-12-19] MEDS ORDERED: LISINOPRIL 10 MG TABLET ONE ×2 (09:30→21:41)
[2019-12-19] MEDS: AMLODIPINE 10 MG TAB PO SCH (09:34)
[2019-12-19] MEDS: MULTIVITAMIN 1 TABLET PO SCH (09:34)
[2019-12-19] MEDS: VALPROATE SODIUM 500 MG in DEXTROSE 5% 100 ML IV SCH ×2 (09:34→21:52)
[2019-12-19] MEDS: FOLIC ACID 1 MG TABLET PO SCH (09:34)
[2019-12-19] MEDS: SENNA/DOCUSATE TABLET PO SCH (09:34)
[2019-12-19] MEDS: MAGNESIUM HYDROXIDE 8%, 30ML UDC PO SCH (09:34)
[2019-12-19] MEDS: DOCUSATE 100 MG CAPSULE PO SCH (09:34)
[2019-12-19] MEDS: LISINOPRIL 20 MG TABLET PO SCH ×2 (09:35→21:51)
[2019-12-19 13:27] VITALS: BP 104/69
[2019-12-19] MEDS: LIDODERM 5% PATCH TD SCH (18:24)
[2019-12-19 20:27] VITALS: BP 124/79
[2019-12-20 00:42] VITALS: BP 154/84
[2019-12-20] MEDS: LIDODERM REMOVE PATCH NOTE XX SCH (05:00)
[2019-12-20] MEDS: OXYcodone/APAP 5/325MG TABLET PO PRN ×4 (05:35→18:58)
[2019-12-20 07:42] VITALS: BP 152/93
[2019-12-20] MEDS ORDERED: LISINOPRIL 10 MG TABLET ONE ×2 (09:32→21:59)
[2019-12-20] MEDS: MAGNESIUM HYDROXIDE 8%, 30ML UDC PO SCH (09:35)
[2019-12-20] MEDS: MULTIVITAMIN 1 TABLET PO SCH (09:36)
[2019-12-20] MEDS: FOLIC ACID 1 MG TABLET PO SCH (09:36)
[2019-12-20] MEDS: AMLODIPINE 10 MG TAB PO SCH (09:36)
[2019-12-20] MEDS: SENNA/DOCUSATE TABLET PO SCH (09:36)
[2019-12-20] MEDS: LISINOPRIL 20 MG TABLET PO SCH ×2 (09:37→22:09)
[2019-12-20] MEDS: DOCUSATE 100 MG CAPSULE PO SCH (09:37)
[2019-12-20] MEDS ORDERED: GADOTERATE 10 MMOL/20 ML SYR ONE (10:46)
[2019-12-20 13:35] VITALS: BP 117/75
[2019-12-20] MEDS: LIDODERM 5% PATCH TD SCH (17:17)
[2019-12-20 18:58] VITALS: BP 131/85
[2019-12-21 00:42] VITALS: BP 124/82
[2019-12-21] MEDS: OXYcodone/APAP 5/325MG TABLET PO PRN ×3 (05:15→15:41)
[2019-12-21] MEDS: LIDODERM REMOVE PATCH NOTE XX SCH (05:27)
[2019-12-21 06:49] VITALS: BP 123/82
[2019-12-21] MEDS ORDERED: LISINOPRIL 10 MG TABLET ONE (09:55)
[2019-12-21] MEDS: DOCUSATE 100 MG CAPSULE PO SCH (10:11)
[2019-12-21] MEDS: SENNA/DOCUSATE TABLET PO SCH (10:11)
[2019-12-21] MEDS: FOLIC ACID 1 MG TABLET PO SCH (10:12)
[2019-12-21] MEDS: LISINOPRIL 20 MG TABLET PO SCH ×2 (10:12→21:11)
[2019-12-21] MEDS: MAGNESIUM HYDROXIDE 8%, 30ML UDC PO SCH (10:12)
[2019-12-21] MEDS: MULTIVITAMIN 1 TABLET PO SCH (10:12)
[2019-12-21] MEDS: AMLODIPINE 10 MG TAB PO SCH (10:12)
[2019-12-21 14:11] VITALS: BP 103/67
[2019-12-21] MEDS: LIDODERM 5% PATCH TD SCH (16:30)
[2019-12-21 18:55] VITALS: BP 123/87
[2019-12-22 00:58] VITALS: BP 142/92
[2019-12-22] MEDS: LIDODERM REMOVE PATCH NOTE XX SCH (04:13)
[2019-12-22 06:47] VITALS: BP 142/96
[2019-12-22] MEDS ORDERED: LISINOPRIL 10 MG TABLET ONE (08:18)
[2019-12-22] MEDS: DOCUSATE 100 MG CAPSULE PO SCH (08:30)
[2019-12-22] MEDS: MULTIVITAMIN 1 TABLET PO SCH (08:30)
[2019-12-22] MEDS: LISINOPRIL 20 MG TABLET PO SCH ×2 (08:30→21:13)
[2019-12-22] MEDS: FOLIC ACID 1 MG TABLET PO SCH (08:30)
[2019-12-22] MEDS: SENNA/DOCUSATE TABLET PO SCH (08:31)
[2019-12-22] MEDS: AMLODIPINE 10 MG TAB PO SCH (08:31)
[2019-12-22] MEDS: MAGNESIUM HYDROXIDE 8%, 30ML UDC PO SCH (08:32)
[2019-12-22] MEDS: OXYcodone/APAP 5/325MG TABLET PO PRN ×2 (08:54→13:27)
[2019-12-22 11:58] VITALS: BP 107/73
[2019-12-22] MEDS: LIDODERM 5% PATCH TD SCH (16:29)
[2019-12-22 18:47] VITALS: BP 125/79
[2019-12-22 21:12] VITALS: BP 160/103
[2019-12-23 00:48] VITALS: BP 128/85
[2019-12-23] MEDS: LIDODERM REMOVE PATCH NOTE XX SCH (04:06)
[2019-12-23 07:05] VITALS: BP 154/98
[2019-12-23] MEDS: DOCUSATE 100 MG CAPSULE PO SCH (08:08)
[2019-12-23] MEDS: MAGNESIUM HYDROXIDE 8%, 30ML UDC PO SCH (08:09)
[2019-12-23] MEDS ORDERED: LISINOPRIL 10 MG TABLET ONE ×2 (08:19→21:29)
[2019-12-23] MEDS: AMLODIPINE 10 MG TAB PO SCH (08:25)
[2019-12-23] MEDS: FOLIC ACID 1 MG TABLET PO SCH (08:25)
[2019-12-23] MEDS: LISINOPRIL 20 MG TABLET PO SCH ×2 (08:25→21:33)
[2019-12-23] MEDS: MULTIVITAMIN 1 TABLET PO SCH (09:00)
[2019-12-23] MEDS: SENNA/DOCUSATE TABLET PO SCH (09:00)
[2019-12-23 13:16] VITALS: BP 123/85
[2019-12-23] MEDS ORDERED: GADOTERATE 10 MMOL/20 ML SYR ONE (16:14)
[2019-12-23] MEDS: OXYcodone/APAP 5/325MG TABLET PO PRN (16:51)
[2019-12-23] MEDS: LIDODERM 5% PATCH TD SCH (16:53)
[2019-12-23 18:42] VITALS: BP 128/90
[2019-12-24 00:37] VITALS: BP 122/84
[2019-12-24] MEDS: LIDODERM REMOVE PATCH NOTE XX SCH (05:37)
[2019-12-24] MEDS: OXYcodone/APAP 5/325MG TABLET PO PRN ×3 (05:57→20:42)
[2019-12-24 07:45] VITALS: BP 111/75
[2019-12-24 08:32] LABS: BASOPHILS # (AUTO) 0.01 x10^3/uL (0-0.1); BASOPHILS % (AUTO) 0 % (0-1); EOSINOPHILS # (AUTO) 0.04 x10^3/uL (0-0.4); EOSINOPHILS % (AUTO) 0 % (1-7); LYMPHOCYTES # (AUTO) 0.72 x10^3/uL (1-3.4); LYMPHOCYTES % (AUTO) 8 % (22-44); MD NO; MEAN CORPUSCULAR HEMOGLOBIN 29.2 pg (27.5-34.5); MEAN CORPUSCULAR HGB CONC 33.3 g/dL (33.2-36.2); MEAN CORPUSCULAR VOLUME 87.9 fL (81-97); MEAN PLATELET VOLUME 7.6 fL (7.4-10.4); MONOCYTES # (AUTO) 0.18 x10^3/uL (0.2-0.8); MONOCYTES % (AUTO) 2 % (2-9); NEUTROPHILS # (AUTO) 7.89 x10^3/uL (1.8-6.8); NEUTROPHILS % (AUTO) 89 % (42-75); PLATELET COUNT 167 x10^3/uL (130-400); RED BLOOD COUNT 4.31 x10^6/uL (4.38-5.82)
[2019-12-24 08:42] LABS: ANION GAP 6 mmol/L (5-15); CALCIUM 8.1 mg/dL (8.5-10.1); CHLORIDE 99 mmol/L (98-107)
[2019-12-24 08:50] LABS: ALANINE AMINOTRANSFERASE 15 U/L (12-78); ALKALINE PHOSPHATASE 72 U/L (45-117); BILIRUBIN,TOTAL 0.4 mg/dL (0.2-1.0); CREATININE 0.68 mg/dL (0.7-1.3); TOTAL PROTEIN 7.3 g/dL (6.4-8.2)
[2019-12-24] MEDS ORDERED: LISINOPRIL 10 MG TABLET ONE ×2 (08:53→20:33)
[2019-12-24] MEDS: MULTIVITAMIN 1 TABLET PO SCH (09:00)
[2019-12-24] MEDS: LISINOPRIL 20 MG TABLET PO SCH ×2 (09:00→20:41)
[2019-12-24] MEDS: AMLODIPINE 10 MG TAB PO SCH (09:00)
[2019-12-24] MEDS: DOCUSATE 100 MG CAPSULE PO SCH (09:00)
[2019-12-24] MEDS: MAGNESIUM HYDROXIDE 8%, 30ML UDC PO SCH (09:00)
[2019-12-24] MEDS: FOLIC ACID 1 MG TABLET PO SCH (09:00)
[2019-12-24] MEDS: SENNA/DOCUSATE TABLET PO SCH (09:00)
[2019-12-24 10:21] LABS: HCT (SEDRATE) 37.9 % (39.2-51.8)
[2019-12-24 13:33] VITALS: BP 113/76
[2019-12-24] MEDS: LIDODERM 5% PATCH TD SCH (17:00)
[2019-12-24 19:51] VITALS: BP 153/92
[2019-12-25] MEDS: OXYcodone/APAP 5/325MG TABLET PO PRN ×5 (01:34→20:38)
[2019-12-25 01:54] VITALS: BP 135/89
[2019-12-25] MEDS: LIDODERM REMOVE PATCH NOTE XX SCH (05:00)
[2019-12-25 06:03] LABS: BASOPHILS # (AUTO) 0.02 x10^3/uL (0-0.1); BASOPHILS % (AUTO) 0 % (0-1); EOSINOPHILS # (AUTO) 0.03 x10^3/uL (0-0.4); EOSINOPHILS % (AUTO) 1 % (1-7); LYMPHOCYTES % (AUTO) 10 % (22-44); MD NO; MEAN CORPUSCULAR VOLUME 87.9 fL (81-97); MEAN PLATELET VOLUME 7.6 fL (7.4-10.4); MONOCYTES # (AUTO) 0.49 x10^3/uL (0.2-0.8); MONOCYTES % (AUTO) 7 % (2-9); NEUTROPHILS # (AUTO) 5.84 x10^3/uL (1.8-6.8); NEUTROPHILS % (AUTO) 83 % (42-75); PLATELET COUNT 163 x10^3/uL (130-400); RED BLOOD COUNT 4.58 x10^6/uL (4.38-5.82); RED CELL DISTRIBUTION WIDTH 14.2 % (9.4-14.8)
[2019-12-25 06:11] LABS: ANION GAP 8 mmol/L (5-15); CALCIUM 8.2 mg/dL (8.5-10.1); CHLORIDE 98 mmol/L (98-107); CREATININE 0.69 mg/dL (0.7-1.3)
[2019-12-25 06:22] VITALS: BP 147/98
[2019-12-25] MEDS ORDERED: LISINOPRIL 10 MG TABLET ONE ×2 (08:50→20:32)
[2019-12-25] MEDS: MAGNESIUM HYDROXIDE 8%, 30ML UDC PO SCH (09:00)
[2019-12-25] MEDS: LISINOPRIL 20 MG TABLET PO SCH ×2 (09:00→20:39)
[2019-12-25] MEDS: SENNA/DOCUSATE TABLET PO SCH (09:02)
[2019-12-25] MEDS: MULTIVITAMIN 1 TABLET PO SCH (09:02)
[2019-12-25] MEDS: FOLIC ACID 1 MG TABLET PO SCH (09:02)
[2019-12-25] MEDS: DOCUSATE 100 MG CAPSULE PO SCH (09:02)
[2019-12-25 12:34] VITALS: BP 101/68
[2019-12-25] MEDS: LIDODERM 5% PATCH TD SCH (16:43)
[2019-12-25 17:06] VITALS: BP 138/92
[2019-12-25 18:50] VITALS: BP 125/86
[2019-12-26 00:51] VITALS: BP 151/98
[2019-12-26] MEDS: OXYcodone/APAP 5/325MG TABLET PO PRN ×2 (01:05→04:59)
[2019-12-26] MEDS: LIDODERM REMOVE PATCH NOTE XX SCH (05:00)
[2019-12-26 06:38] LABS: HCT (SEDRATE) 40.7 % (39.2-51.8)
[2019-12-26 06:44] LABS: ANION GAP 6 mmol/L (5-15); CALCIUM 8.8 mg/dL (8.5-10.1); CHLORIDE 97 mmol/L (98-107); CREATININE 0.82 mg/dL (0.7-1.3)
[2019-12-26 07:25] VITALS: BP 153/102
[2019-12-26] MEDS ORDERED: LISINOPRIL 10 MG TABLET ONE ×2 (07:59→20:35)
[2019-12-26] MEDS: FOLIC ACID 1 MG TABLET PO SCH (08:01)
[2019-12-26] MEDS: DOCUSATE 100 MG CAPSULE PO SCH (08:01)
[2019-12-26] MEDS: MULTIVITAMIN 1 TABLET PO SCH (08:01)
[2019-12-26] MEDS: MAGNESIUM HYDROXIDE 8%, 30ML UDC PO SCH (08:02)
[2019-12-26] MEDS: SENNA/DOCUSATE TABLET PO SCH (08:02)
[2019-12-26] MEDS: LISINOPRIL 20 MG TABLET PO SCH ×2 (08:02→20:50)
[2019-12-26 08:24] LABS: MEAN CORPUSCULAR HEMOGLOBIN 29.4 pg (27.5-34.5); MEAN CORPUSCULAR VOLUME 89.2 fL (81-97); MEAN PLATELET VOLUME 8.1 fL (7.4-10.4); PLATELET COUNT 198 x10^3/uL (130-400); RED BLOOD COUNT 4.63 x10^6/uL (4.38-5.82); RED CELL DISTRIBUTION WIDTH 14.5 % (9.4-14.8)
[2019-12-26 08:55] LABS: MD YES
[2019-12-26 08:58] LABS: BANDS%(MANUAL) 12 % (0-7); EOS#(MANUAL) 0.17 x10^3/uL (0.0-0.4); EOS% (MANUAL) 2 % (1-7); LYMPH#(MANUAL) 0.91 x10^3/uL (1-3.4); LYMPHS% (MANUAL) 11 % (22-44); MONOS#(MANUAL) 0.66 x10^3/uL (0.3-2.7); MONOS% (MANUAL) 8 % (2-9); SEG#(MANUAL) 5.56 x10^3/uL (1.8-6.8); SEGS% (MANUAL) 67 % (42-75)
[2019-12-26 09:00] LABS: <RBC MORPHOLOGY> NORMAL
[2019-12-26 09:01] LABS: <PLATELET ESTIMATE> ADEQUATE; <PLT MORPHOLOGY> NORMAL PLT MORPH; TOXIC GRAN 1+
[2019-12-26 09:28] VITALS: BP 118/85
[2019-12-26 12:26] VITALS: BP 147/98
[2019-12-26] MEDS: LIDODERM 5% PATCH TD SCH (17:00)
[2019-12-26 18:44] VITALS: BP 112/75
[2019-12-26] MEDS: ACETAMINOPHEN 325 MG TABLET PO PRN (20:49)
[2019-12-27 00:34] VITALS: BP 113/80
[2019-12-27] MEDS: OXYcodone/APAP 5/325MG TABLET PO PRN ×2 (04:53→16:08)
[2019-12-27] MEDS: LIDODERM REMOVE PATCH NOTE XX SCH (04:53)
[2019-12-27 05:27] LABS: BASOPHILS # (AUTO) 0.03 x10^3/uL (0-0.1); BASOPHILS % (AUTO) 0 % (0-1); EOSINOPHILS # (AUTO) 0.02 x10^3/uL (0-0.4); EOSINOPHILS % (AUTO) 0 % (1-7); LYMPHOCYTES # (AUTO) 0.51 x10^3/uL (1-3.4); LYMPHOCYTES % (AUTO) 8 % (22-44); MD NO; MEAN CORPUSCULAR HEMOGLOBIN 28.9 pg (27.5-34.5); MEAN CORPUSCULAR HGB CONC 32.9 g/dL (33.2-36.2); MEAN CORPUSCULAR VOLUME 87.8 fL (81-97); MEAN PLATELET VOLUME 7.6 fL (7.4-10.4); MONOCYTES % (AUTO) 8 % (2-9); NEUTROPHILS # (AUTO) 5.56 x10^3/uL (1.8-6.8); NEUTROPHILS % (AUTO) 84 % (42-75); PLATELET COUNT 211 x10^3/uL (130-400); RED BLOOD COUNT 4.61 x10^6/uL (4.38-5.82); RED CELL DISTRIBUTION WIDTH 14.1 % (9.4-14.8)
[2019-12-27 05:39] LABS: ANION GAP 7 mmol/L (5-15); CALCIUM 8.9 mg/dL (8.5-10.1); CHLORIDE 97 mmol/L (98-107)
[2019-12-27 06:05] LABS: MICROSCOPIC NOT IND
[2019-12-27 06:32] VITALS: BP 105/73
[2019-12-27] MEDS ORDERED: LISINOPRIL 40 MG TABLET ONE (09:52)
[2019-12-27] MEDS: MULTIVITAMIN 1 TABLET PO SCH (09:56)
[2019-12-27] MEDS: ACETAMINOPHEN 325 MG TABLET PO PRN (09:56)
[2019-12-27] MEDS: FOLIC ACID 1 MG TABLET PO SCH (09:56)
[2019-12-27] MEDS: DOCUSATE 100 MG CAPSULE PO SCH (09:56)
[2019-12-27] MEDS: MAGNESIUM HYDROXIDE 8%, 30ML UDC PO SCH (09:57)
[2019-12-27] MEDS: LISINOPRIL 20 MG TABLET PO SCH ×2 (09:57→20:25)
[2019-12-27] MEDS: SENNA/DOCUSATE TABLET PO SCH (09:59)
[2019-12-27 13:06] VITALS: BP 123/84
[2019-12-27] MEDS: LIDODERM 5% PATCH TD SCH (17:26)
[2019-12-27 18:49] VITALS: BP 95/63
[2019-12-27] MEDS ORDERED: LISINOPRIL 10 MG TABLET ONE (20:21)
[2019-12-27 20:25] VITALS: BP 117/81
[2019-12-28 01:13] VITALS: BP 110/76
[2019-12-28] MEDS: LIDODERM REMOVE PATCH NOTE XX SCH (05:34)
[2019-12-28 06:17] LABS: BASOPHILS # (AUTO) 0.05 x10^3/uL (0-0.1); BASOPHILS % (AUTO) 1 % (0-1); EOSINOPHILS # (AUTO) 0.01 x10^3/uL (0-0.4); EOSINOPHILS % (AUTO) 0 % (1-7); LYMPHOCYTES # (AUTO) 0.67 x10^3/uL (1-3.4); LYMPHOCYTES % (AUTO) 12 % (22-44); MD NO; MEAN CORPUSCULAR HEMOGLOBIN 29.3 pg (27.5-34.5); MEAN CORPUSCULAR HGB CONC 33.4 g/dL (33.2-36.2); MEAN CORPUSCULAR VOLUME 87.7 fL (81-97); MEAN PLATELET VOLUME 7.2 fL (7.4-10.4); MONOCYTES # (AUTO) 0.53 x10^3/uL (0.2-0.8); MONOCYTES % (AUTO) 9 % (2-9); NEUTROPHILS % (AUTO) 79 % (42-75); PLATELET COUNT 251 x10^3/uL (130-400); RED BLOOD COUNT 4.18 x10^6/uL (4.38-5.82); RED CELL DISTRIBUTION WIDTH 14.4 % (9.4-14.8)
[2019-12-28 06:25] LABS: ANION GAP 8 mmol/L (5-15); CALCIUM 8.6 mg/dL (8.5-10.1); CHLORIDE 101 mmol/L (98-107); CREATININE 0.66 mg/dL (0.7-1.3)
[2019-12-28 07:55] VITALS: BP 114/79
[2019-12-28] MEDS: MAGNESIUM HYDROXIDE 8%, 30ML UDC PO SCH (08:59)
[2019-12-28] MEDS: LISINOPRIL 20 MG TABLET PO SCH ×2 (09:00→20:07)
[2019-12-28] MEDS: SENNA/DOCUSATE TABLET PO SCH (09:00)
[2019-12-28] MEDS ORDERED: LISINOPRIL 10 MG TABLET ONE ×2 (09:04→19:59)
[2019-12-28] MEDS: FOLIC ACID 1 MG TABLET PO SCH (09:10)
[2019-12-28] MEDS: MULTIVITAMIN 1 TABLET PO SCH (09:10)
[2019-12-28] MEDS: DOCUSATE 100 MG CAPSULE PO SCH (09:11)
[2019-12-28] MEDS: OXYcodone/APAP 5/325MG TABLET PO PRN (09:21)
[2019-12-28 14:00] VITALS: BP 118/68
[2019-12-28] MEDS: LIDODERM 5% PATCH TD SCH (17:00)
[2019-12-28 19:35] VITALS: BP 132/88
[2019-12-29] VITALS: BP 138/93
[2019-12-29] MEDS: OXYcodone/APAP 5/325MG TABLET PO PRN ×2 (03:03→14:49)
[2019-12-29] MEDS: LIDODERM REMOVE PATCH NOTE XX SCH (04:34)
[2019-12-29 05:50] LABS: MEAN CORPUSCULAR HEMOGLOBIN 29.1 pg (27.5-34.5); MEAN PLATELET VOLUME 7.4 fL (7.4-10.4); PLATELET COUNT 299 x10^3/uL (130-400); RED BLOOD COUNT 4.19 x10^6/uL (4.38-5.82); RED CELL DISTRIBUTION WIDTH 13.9 % (9.4-14.8)
[2019-12-29 06:02] LABS: ANION GAP 5 mmol/L (5-15); CALCIUM 8.9 mg/dL (8.5-10.1); CHLORIDE 101 mmol/L (98-107); CREATININE 0.64 mg/dL (0.7-1.3)
[2019-12-29 06:11] LABS: MD YES
[2019-12-29 06:14] LABS: BAND#(MANUAL) 1.02 x10^3/uL; BANDS%(MANUAL) 15 % (0-7); BASOS#(MANUAL) 0.07 x10^3/uL (0-0.1); BASOS% (MANUAL) 1 % (0-1); LYMPH#(MANUAL) 0.95 x10^3/uL (1-3.4); LYMPHS% (MANUAL) 14 % (22-44); MONOS#(MANUAL) 0.41 x10^3/uL (0.3-2.7); MONOS% (MANUAL) 6 % (2-9); NRBC % (MANUAL) 1 % (0-1); SEG#(MANUAL) 4.35 x10^3/uL (1.8-6.8); SEGS% (MANUAL) 64 % (42-75)
[2019-12-29 06:15] LABS: <PLATELET ESTIMATE> ADEQUATE; <PLT MORPHOLOGY> NORMAL PLT MORPH; <RBC MORPHOLOGY> NORMAL; TOXIC GRAN 1+
[2019-12-29 06:38] VITALS: BP 128/92
[2019-12-29] MEDS ORDERED: LISINOPRIL 10 MG TABLET ONE ×2 (08:34→20:26)
[2019-12-29] MEDS: SENNA/DOCUSATE TABLET PO SCH (08:35)
[2019-12-29] MEDS: MAGNESIUM HYDROXIDE 8%, 30ML UDC PO SCH (08:35)
[2019-12-29] MEDS: DOCUSATE 100 MG CAPSULE PO SCH (08:35)
[2019-12-29] MEDS: LISINOPRIL 20 MG TABLET PO SCH ×2 (08:38→20:28)
[2019-12-29] MEDS: FOLIC ACID 1 MG TABLET PO SCH (08:38)
[2019-12-29] MEDS: MULTIVITAMIN 1 TABLET PO SCH (08:38)
[2019-12-29] MEDS: LIDODERM 5% PATCH TD SCH (08:46)
[2019-12-29 10:49] VITALS: BP 108/73
[2019-12-29 12:35] VITALS: BP 119/83
[2019-12-29 19:00] VITALS: BP 109/79
[2019-12-30 00:53] VITALS: BP 119/81
[2019-12-30 03:58] LABS: MEAN CORPUSCULAR HEMOGLOBIN 28.8 pg (27.5-34.5); MEAN CORPUSCULAR VOLUME 87.3 fL (81-97); MEAN PLATELET VOLUME 7.2 fL (7.4-10.4); PLATELET COUNT 350 x10^3/uL (130-400); RED BLOOD COUNT 4.28 x10^6/uL (4.38-5.82); RED CELL DISTRIBUTION WIDTH 14.3 % (9.4-14.8)
[2019-12-30 04:07] LABS: BASOPHILS # (AUTO) 0.07 x10^3/uL (0-0.1); BASOPHILS % (AUTO) 1 % (0-1); EOSINOPHILS # (AUTO) 0.03 x10^3/uL (0-0.4); EOSINOPHILS % (AUTO) 1 % (1-7); LYMPHOCYTES % (AUTO) 12 % (22-44); MD NO; MONOCYTES # (AUTO) 0.45 x10^3/uL (0.2-0.8); MONOCYTES % (AUTO) 8 % (2-9); NEUTROPHILS % (AUTO) 79 % (42-75)
[2019-12-30 04:10] LABS: ANION GAP 6 mmol/L (5-15); CALCIUM 8.7 mg/dL (8.5-10.1); CHLORIDE 102 mmol/L (98-107); CREATININE 0.66 mg/dL (0.7-1.3)
[2019-12-30] MEDS: OXYcodone/APAP 5/325MG TABLET PO PRN (04:18)
[2019-12-30] MEDS: LIDODERM REMOVE PATCH NOTE XX SCH (04:29)
[2019-12-30 07:28] VITALS: BP 130/88
[2019-12-30] MEDS ORDERED: LISINOPRIL 10 MG TABLET ONE (09:01)
[2019-12-30] MEDS: LISINOPRIL 20 MG TABLET PO SCH ×2 (09:06→19:57)
[2019-12-30] MEDS: SENNA/DOCUSATE TABLET PO SCH (09:06)
[2019-12-30] MEDS: MULTIVITAMIN 1 TABLET PO SCH (09:08)
[2019-12-30] MEDS: MAGNESIUM HYDROXIDE 8%, 30ML UDC PO SCH (09:08)
[2019-12-30] MEDS: FOLIC ACID 1 MG TABLET PO SCH (09:08)
[2019-12-30] MEDS: DOCUSATE 100 MG CAPSULE PO SCH (09:10)
[2019-12-30 12:52] VITALS: BP 125/86
[2019-12-30] MEDS: LIDODERM 5% PATCH TD SCH (17:00)
[2019-12-30 18:52] VITALS: BP 117/79
[2019-12-30 19:56] VITALS: BP 116/83
[2019-12-31 00:18] VITALS: BP 130/90
[2019-12-31] MEDS: LIDODERM REMOVE PATCH NOTE XX SCH (05:00)
[2019-12-31 08:05] VITALS: BP 120/83
[2019-12-31] MEDS: FOLIC ACID 1 MG TABLET PO SCH (08:50)
[2019-12-31] MEDS: MAGNESIUM HYDROXIDE 8%, 30ML UDC PO SCH (08:51)
[2019-12-31] MEDS: MULTIVITAMIN 1 TABLET PO SCH (08:51)
[2019-12-31] MEDS: LISINOPRIL 20 MG TABLET PO SCH ×2 (08:51→19:56)
[2019-12-31] MEDS: SENNA/DOCUSATE TABLET PO SCH (08:51)
[2019-12-31] MEDS: DOCUSATE 100 MG CAPSULE PO SCH (08:52)
[2019-12-31 12:47] VITALS: BP 128/84
[2019-12-31] MEDS: LIDODERM 5% PATCH TD SCH (16:49)
[2019-12-31] MEDS: ACETAMINOPHEN 325 MG TABLET PO PRN (16:59)
[2019-12-31 18:28] VITALS: BP 116/83
[2019-12-31 19:55] VITALS: BP 107/71
[2020-01-01 00:14] VITALS: BP 142/97
[2020-01-01] MEDS: LIDODERM REMOVE PATCH NOTE XX SCH (05:00)
[2020-01-01 06:44] LABS: BASOPHILS # (AUTO) 0.03 x10^3/uL (0-0.1); BASOPHILS % (AUTO) 0 % (0-1); EOSINOPHILS # (AUTO) 0.06 x10^3/uL (0-0.4); EOSINOPHILS % (AUTO) 1 % (1-7); LYMPHOCYTES # (AUTO) 0.95 x10^3/uL (1-3.4); LYMPHOCYTES % (AUTO) 12 % (22-44); MD NO; MEAN CORPUSCULAR HEMOGLOBIN 28.9 pg (27.5-34.5); MEAN CORPUSCULAR HGB CONC 33.3 g/dL (33.2-36.2); MEAN CORPUSCULAR VOLUME 86.9 fL (81-97); MEAN PLATELET VOLUME 7.8 fL (7.4-10.4); MONOCYTES # (AUTO) 0.63 x10^3/uL (0.2-0.8); MONOCYTES % (AUTO) 8 % (2-9); NEUTROPHILS # (AUTO) 6.58 x10^3/uL (1.8-6.8); NEUTROPHILS % (AUTO) 80 % (42-75); PLATELET COUNT 447 x10^3/uL (130-400); RED BLOOD COUNT 4.15 x10^6/uL (4.38-5.82); RED CELL DISTRIBUTION WIDTH 14.2 % (9.4-14.8)
[2020-01-01 06:51] VITALS: BP 114/79
[2020-01-01 06:55] LABS: CHLORIDE 100 mmol/L (98-107)
[2020-01-01 07:07] LABS: ALANINE AMINOTRANSFERASE 19 U/L (12-78); ALBUMIN 2.3 g/dL (3.4-5.0); ALKALINE PHOSPHATASE 74 U/L (45-117); ANION GAP 9 mmol/L (5-15); BILIRUBIN,TOTAL 0.3 mg/dL (0.2-1.0); CALCIUM 8.7 mg/dL (8.5-10.1); CREATININE 0.66 mg/dL (0.7-1.3); TOTAL PROTEIN 7.4 g/dL (6.4-8.2)
[2020-01-01 07:33] LABS: HCT (SEDRATE) 36.1 % (39.2-51.8)
[2020-01-01] MEDS: DOCUSATE 100 MG CAPSULE PO SCH (08:28)
[2020-01-01] MEDS: MAGNESIUM HYDROXIDE 8%, 30ML UDC PO SCH (08:28)
[2020-01-01] MEDS: SENNA/DOCUSATE TABLET PO SCH (08:28)
[2020-01-01] MEDS: FOLIC ACID 1 MG TABLET PO SCH (08:45)
[2020-01-01] MEDS: MULTIVITAMIN 1 TABLET PO SCH (08:45)
[2020-01-01] MEDS: LISINOPRIL 20 MG TABLET PO SCH ×2 (08:45→20:31)
[2020-01-01 14:53] VITALS: BP 123/85
[2020-01-01] MEDS: LIDODERM 5% PATCH TD SCH (17:00)
[2020-01-01 18:25] LABS: MICROSCOPIC INDICATED
[2020-01-01 18:32] VITALS: BP 123/83
[2020-01-01 20:31] VITALS: BP 126/86
[2020-01-02 00:32] VITALS: BP 126/89
[2020-01-02] MEDS: LIDODERM REMOVE PATCH NOTE XX SCH (05:00)
[2020-01-02 05:48] LABS: BASOPHILS # (AUTO) 0.02 x10^3/uL (0-0.1); BASOPHILS % (AUTO) 0 % (0-1); EOSINOPHILS # (AUTO) 0.04 x10^3/uL (0-0.4); EOSINOPHILS % (AUTO) 0 % (1-7); LYMPHOCYTES # (AUTO) 1.16 x10^3/uL (1-3.4); LYMPHOCYTES % (AUTO) 11 % (22-44); MD NO; MEAN CORPUSCULAR HEMOGLOBIN 28.6 pg (27.5-34.5); MEAN CORPUSCULAR HGB CONC 32.8 g/dL (33.2-36.2); MEAN CORPUSCULAR VOLUME 87.4 fL (81-97); MEAN PLATELET VOLUME 7.4 fL (7.4-10.4); MONOCYTES # (AUTO) 0.87 x10^3/uL (0.2-0.8); MONOCYTES % (AUTO) 8 % (2-9); NEUTROPHILS # (AUTO) 8.67 x10^3/uL (1.8-6.8); NEUTROPHILS % (AUTO) 81 % (42-75); PLATELET COUNT 502 x10^3/uL (130-400); RED CELL DISTRIBUTION WIDTH 14.2 % (9.4-14.8)
[2020-01-02 06:00] LABS: ANION GAP 8 mmol/L (5-15); CALCIUM 8.6 mg/dL (8.5-10.1); CHLORIDE 100 mmol/L (98-107); CREATININE 0.68 mg/dL (0.7-1.3)
[2020-01-02 06:46] VITALS: BP 120/85
[2020-01-02] MEDS: DOCUSATE 100 MG CAPSULE PO SCH (07:05)
[2020-01-02] MEDS: SENNA/DOCUSATE TABLET PO SCH (07:05)
[2020-01-02] MEDS: MAGNESIUM HYDROXIDE 8%, 30ML UDC PO SCH (07:05)
[2020-01-02] MEDS: MULTIVITAMIN 1 TABLET PO SCH (08:28)
[2020-01-02] MEDS: LISINOPRIL 20 MG TABLET PO SCH ×2 (08:28→21:00)
[2020-01-02] MEDS: FOLIC ACID 1 MG TABLET PO SCH (08:28)
[2020-01-02] MEDS: OXYcodone/APAP 5/325MG TABLET PO PRN (08:28)
[2020-01-02 13:22] VITALS: BP 139/68
[2020-01-02] MEDS ORDERED: LIDOCAINE-MPF 1%, 5ML ONE (15:16)
[2020-01-02 16:55] LABS: GLUCOSE, CSF 54 mg/dL (40-80); TOTAL PROTEIN,CSF 53 mg/dL (15-45)
[2020-01-02] MEDS: LIDODERM 5% PATCH TD SCH (17:00)
[2020-01-02 19:07] VITALS: BP 133/89
[2020-01-02] MEDS ORDERED: LISINOPRIL 10 MG TABLET ONE (20:53)
[2020-01-02 20:59] VITALS: BP 127/87
[2020-01-03 01:09] VITALS: BP 118/82
[2020-01-03] MEDS: ACETAMINOPHEN 325 MG TABLET PO PRN ×2 (01:15→08:47)
[2020-01-03 04:41] LABS: MEAN CORPUSCULAR HEMOGLOBIN 28.5 pg (27.5-34.5); MEAN CORPUSCULAR HGB CONC 32.6 g/dL (33.2-36.2); MEAN CORPUSCULAR VOLUME 87.3 fL (81-97); MEAN PLATELET VOLUME 7.1 fL (7.4-10.4); PLATELET COUNT 540 x10^3/uL (130-400); RED BLOOD COUNT 4.12 x10^6/uL (4.38-5.82)
[2020-01-03 04:49] LABS: ANION GAP 8 mmol/L (5-15); CALCIUM 8.6 mg/dL (8.5-10.1); CHLORIDE 100 mmol/L (98-107)
[2020-01-03] MEDS: LIDODERM REMOVE PATCH NOTE XX SCH (05:00)
[2020-01-03 05:45] LABS: BASOPHILS # (AUTO) 0.11 x10^3/uL (0-0.1); BASOPHILS % (AUTO) 1 % (0-1); EOSINOPHILS # (AUTO) 0.02 x10^3/uL (0-0.4); EOSINOPHILS % (AUTO) 0 % (1-7); LYMPHOCYTES # (AUTO) 1.12 x10^3/uL (1-3.4); LYMPHOCYTES % (AUTO) 8 % (22-44); MD SCAN; MONOCYTES # (AUTO) 0.85 x10^3/uL (0.2-0.8); MONOCYTES % (AUTO) 6 % (2-9); NEUTROPHILS # (AUTO) 11.44 x10^3/uL (1.8-6.8); NEUTROPHILS % (AUTO) 85 % (42-75)
[2020-01-03 07:53] VITALS: BP 116/79
[2020-01-03] MEDS: DOCUSATE 100 MG CAPSULE PO SCH (07:59)
[2020-01-03] MEDS: SENNA/DOCUSATE TABLET PO SCH (08:00)
[2020-01-03] MEDS: MAGNESIUM HYDROXIDE 8%, 30ML UDC PO SCH (08:00)
[2020-01-03] MEDS ORDERED: LISINOPRIL 10 MG TABLET ONE ×2 (08:45→20:31)
[2020-01-03] MEDS: MULTIVITAMIN 1 TABLET PO SCH (08:48)
[2020-01-03] MEDS: FOLIC ACID 1 MG TABLET PO SCH (08:48)
[2020-01-03] MEDS: LISINOPRIL 20 MG TABLET PO SCH ×2 (08:48→20:36)
[2020-01-03] MEDS: CEFTRIAXONE PMX 2GM/50ML 50 ML IV SCH (12:34)
[2020-01-03 13:59] VITALS: BP 125/63
[2020-01-03] MEDS: LIDODERM 5% PATCH TD SCH (16:09)
[2020-01-03 19:34] VITALS: BP 110/76
[2020-01-04 00:28] VITALS: BP 123/74
[2020-01-04] MEDS: LIDODERM REMOVE PATCH NOTE XX SCH (04:33)
[2020-01-04 06:07] LABS: MEAN CORPUSCULAR HEMOGLOBIN 28.4 pg (27.5-34.5); MEAN CORPUSCULAR HGB CONC 32.2 g/dL (33.2-36.2); MEAN CORPUSCULAR VOLUME 88.1 fL (81-97); MEAN PLATELET VOLUME 7.2 fL (7.4-10.4); PLATELET COUNT 533 x10^3/uL (130-400); RED CELL DISTRIBUTION WIDTH 14.2 % (9.4-14.8)
[2020-01-04 06:17] LABS: ANION GAP 7 mmol/L (5-15); CALCIUM 9.1 mg/dL (8.5-10.1); CHLORIDE 100 mmol/L (98-107)
[2020-01-04 06:24] LABS: BASOPHILS # (AUTO) 0.02 x10^3/uL (0-0.1); BASOPHILS % (AUTO) 0 % (0-1); EOSINOPHILS # (AUTO) 0.01 x10^3/uL (0-0.4); EOSINOPHILS % (AUTO) 0 % (1-7); LYMPHOCYTES # (AUTO) 1.28 x10^3/uL (1-3.4); LYMPHOCYTES % (AUTO) 9 % (22-44); MD SCAN; MONOCYTES % (AUTO) 8 % (2-9); NEUTROPHILS # (AUTO) 11.95 x10^3/uL (1.8-6.8); NEUTROPHILS % (AUTO) 83 % (42-75)
[2020-01-04 07:52] VITALS: BP 107/74
[2020-01-04] MEDS ORDERED: LISINOPRIL 10 MG TABLET ONE ×2 (10:05→20:44)
[2020-01-04] MEDS: LISINOPRIL 20 MG TABLET PO SCH ×2 (10:14→20:50)
[2020-01-04] MEDS: OXYcodone/APAP 5/325MG TABLET PO PRN (10:24)
[2020-01-04] MEDS: MULTIVITAMIN 1 TABLET PO SCH (10:26)
[2020-01-04] MEDS: DOCUSATE 100 MG CAPSULE PO SCH (10:27)
[2020-01-04] MEDS: FOLIC ACID 1 MG TABLET PO SCH (10:28)
[2020-01-04] MEDS: SENNA/DOCUSATE TABLET PO SCH (10:28)
[2020-01-04] MEDS: MAGNESIUM HYDROXIDE 8%, 30ML UDC PO SCH (10:30)
[2020-01-04 12:15] VITALS: BP 94/64
[2020-01-04] MEDS: CEFTRIAXONE PMX 2GM/50ML 50 ML IV SCH (14:11)
[2020-01-04] MEDS: LIDODERM 5% PATCH TD SCH (18:09)
[2020-01-04 19:01] VITALS: BP 128/88
[2020-01-05 01:37] VITALS: BP 110/74
[2020-01-05] MEDS: LIDODERM REMOVE PATCH NOTE XX SCH (05:00)
[2020-01-05 08:00] VITALS: BP 116/95
[2020-01-05] MEDS: SENNA/DOCUSATE TABLET PO SCH (09:40)
[2020-01-05] MEDS: FOLIC ACID 1 MG TABLET PO SCH (09:43)
[2020-01-05] MEDS: LISINOPRIL 20 MG TABLET PO SCH ×2 (09:45→21:03)
[2020-01-05] MEDS: MULTIVITAMIN 1 TABLET PO SCH (09:46)
[2020-01-05] MEDS: DOCUSATE 100 MG CAPSULE PO SCH (09:47)
[2020-01-05] MEDS: MAGNESIUM HYDROXIDE 8%, 30ML UDC PO SCH (09:47)
[2020-01-05] MEDS: ERTAPENEM 1 GM in SODIUM CHLORIDE 0.9% 50 ML IV SCH (09:50)
[2020-01-05 12:15] VITALS: BP 123/62
[2020-01-05] MEDS: LIDODERM 5% PATCH TD SCH (17:36)
[2020-01-05 19:41] VITALS: BP 108/76
[2020-01-05] MEDS ORDERED: LISINOPRIL 10 MG TABLET ONE (20:54)
[2020-01-06 00:38] VITALS: BP 123/86
[2020-01-06] MEDS: LIDODERM REMOVE PATCH NOTE XX SCH (05:00)
[2020-01-06 05:46] LABS: ANION GAP 5 mmol/L (5-15); CALCIUM 9.2 mg/dL (8.5-10.1); CHLORIDE 101 mmol/L (98-107); CREATININE 0.65 mg/dL (0.7-1.3)
[2020-01-06 05:49] LABS: BASOPHILS # (AUTO) 0.04 x10^3/uL (0-0.1); BASOPHILS % (AUTO) 0 % (0-1); EOSINOPHILS # (AUTO) 0.06 x10^3/uL (0-0.4); EOSINOPHILS % (AUTO) 0 % (1-7); LYMPHOCYTES # (AUTO) 0.96 x10^3/uL (1-3.4); LYMPHOCYTES % (AUTO) 6 % (22-44); MD NO; MEAN CORPUSCULAR HEMOGLOBIN 28.8 pg (27.5-34.5); MEAN CORPUSCULAR HGB CONC 32.9 g/dL (33.2-36.2); MEAN CORPUSCULAR VOLUME 87.3 fL (81-97); MEAN PLATELET VOLUME 7.6 fL (7.4-10.4); MONOCYTES # (AUTO) 0.99 x10^3/uL (0.2-0.8); MONOCYTES % (AUTO) 6 % (2-9); NEUTROPHILS # (AUTO) 14.17 x10^3/uL (1.8-6.8); NEUTROPHILS % (AUTO) 87 % (42-75); PLATELET COUNT 539 x10^3/uL (130-400); RED BLOOD COUNT 4.06 x10^6/uL (4.38-5.82); RED CELL DISTRIBUTION WIDTH 14.6 % (9.4-14.8)
[2020-01-06 07:13] VITALS: BP 111/78
[2020-01-06] MEDS ORDERED: LISINOPRIL 10 MG TABLET ONE (07:59)
[2020-01-06] MEDS: ERTAPENEM 1 GM in SODIUM CHLORIDE 0.9% 50 ML IV SCH (08:10)
[2020-01-06] MEDS: MULTIVITAMIN 1 TABLET PO SCH (08:11)
[2020-01-06] MEDS: DOCUSATE 100 MG CAPSULE PO SCH (08:11)
[2020-01-06] MEDS: MAGNESIUM HYDROXIDE 8%, 30ML UDC PO SCH (08:11)
[2020-01-06] MEDS: SENNA/DOCUSATE TABLET PO SCH (08:11)
[2020-01-06] MEDS: FOLIC ACID 1 MG TABLET PO SCH (08:11)
[2020-01-06] MEDS: LISINOPRIL 20 MG TABLET PO SCH ×2 (08:12→20:54)
[2020-01-06] MEDS: OXYcodone/APAP 5/325MG TABLET PO PRN (11:44)
[2020-01-06 13:56] VITALS: BP 98/69
[2020-01-06] MEDS: LIDODERM 5% PATCH TD SCH (17:27)
[2020-01-06 19:23] VITALS: BP 120/85
[2020-01-07 00:47] VITALS: BP 106/76
[2020-01-07] MEDS: LIDODERM REMOVE PATCH NOTE XX SCH (04:32)
[2020-01-07 08:53] VITALS: BP 108/79
[2020-01-07] MEDS: MAGNESIUM HYDROXIDE 8%, 30ML UDC PO SCH (08:54)
[2020-01-07] MEDS: SENNA/DOCUSATE TABLET PO SCH (08:54)
[2020-01-07] MEDS: MULTIVITAMIN 1 TABLET PO SCH (08:55)
[2020-01-07] MEDS: DOCUSATE 100 MG CAPSULE PO SCH (08:55)
[2020-01-07] MEDS: FOLIC ACID 1 MG TABLET PO SCH (08:55)
[2020-01-07] MEDS: LISINOPRIL 20 MG TABLET PO SCH ×2 (08:55→21:11)
[2020-01-07] MEDS: OXYcodone/APAP 5/325MG TABLET PO PRN ×2 (08:55→15:11)
[2020-01-07] MEDS: ERTAPENEM 1 GM in SODIUM CHLORIDE 0.9% 50 ML IV SCH (11:35)
[2020-01-07] MEDS: ONDANSETRON 2MG/ML, 2ML IVPush PRN (11:47)
[2020-01-07 14:50] VITALS: BP 94/66
[2020-01-07] MEDS: LIDODERM 5% PATCH TD SCH (16:59)
[2020-01-07 19:17] VITALS: BP 103/69
[2020-01-08 01:51] VITALS: BP 107/73
[2020-01-08] MEDS: LIDODERM REMOVE PATCH NOTE XX SCH (05:00)
[2020-01-08 06:53] VITALS: BP 106/68
[2020-01-08] MEDS: MULTIVITAMIN 1 TABLET PO SCH (08:21)
[2020-01-08] MEDS: SENNA/DOCUSATE TABLET PO SCH (08:21)
[2020-01-08] MEDS: FOLIC ACID 1 MG TABLET PO SCH (08:21)
[2020-01-08] MEDS: LISINOPRIL 20 MG TABLET PO SCH ×2 (08:21→20:50)
[2020-01-08] MEDS: OXYcodone/APAP 5/325MG TABLET PO PRN (08:21)
[2020-01-08] MEDS: DOCUSATE 100 MG CAPSULE PO SCH (08:21)
[2020-01-08] MEDS: POLYETHYLENE GLYCOL 17 GM PACKET PO PRN (08:21)
[2020-01-08] MEDS: MAGNESIUM HYDROXIDE 8%, 30ML UDC PO SCH (08:22)
[2020-01-08] MEDS: ERTAPENEM 1 GM in SODIUM CHLORIDE 0.9% 50 ML IV SCH (12:07)
[2020-01-08 12:29] VITALS: BP 103/63
[2020-01-08] MEDS: LIDODERM 5% PATCH TD SCH (16:24)
[2020-01-08 20:12] VITALS: BP 118/84
[2020-01-09 01:12] VITALS: BP 97/65
[2020-01-09] MEDS: LIDODERM REMOVE PATCH NOTE XX SCH (04:23)
[2020-01-09 06:09] LABS: MEAN CORPUSCULAR HEMOGLOBIN 28.3 pg (27.5-34.5); MEAN CORPUSCULAR HGB CONC 32.3 g/dL (33.2-36.2); MEAN CORPUSCULAR VOLUME 87.6 fL (81-97); MEAN PLATELET VOLUME 7.5 fL (7.4-10.4); PLATELET COUNT 455 x10^3/uL (130-400); RED CELL DISTRIBUTION WIDTH 14.5 % (9.4-14.8)
[2020-01-09 06:21] LABS: ANION GAP 7 mmol/L (5-15); CALCIUM 9.4 mg/dL (8.5-10.1); CHLORIDE 102 mmol/L (98-107); CREATININE 0.75 mg/dL (0.7-1.3)
[2020-01-09 06:50] VITALS: BP 100/68
[2020-01-09 07:08] LABS: MD YES
[2020-01-09 07:09] LABS: LYMPH#(MANUAL) 1.75 x10^3/uL (1-3.4); LYMPHS% (MANUAL) 9 % (22-44); MONOS#(MANUAL) 1.16 x10^3/uL (0.3-2.7); MONOS% (MANUAL) 6 % (2-9); SEG#(MANUAL) 16.49 x10^3/uL (1.8-6.8); SEGS% (MANUAL) 85 % (42-75)
[2020-01-09 07:10] LABS: <PLATELET ESTIMATE> INCREASED; <PLT MORPHOLOGY> NORMAL PLT MORPH; <RBC MORPHOLOGY> NORMAL
[2020-01-09] MEDS: LISINOPRIL 20 MG TABLET PO SCH ×2 (09:00→20:41)
[2020-01-09] MEDS: MAGNESIUM HYDROXIDE 8%, 30ML UDC PO SCH (10:28)
[2020-01-09] MEDS: BISACODYL 10 MG SUPP PR PRN (10:28)
[2020-01-09] MEDS: DOCUSATE 100 MG CAPSULE PO SCH (10:29)
[2020-01-09] MEDS: LIDODERM 5% PATCH TD SCH (10:29)
[2020-01-09] MEDS: SENNA/DOCUSATE TABLET PO SCH (10:29)
[2020-01-09] MEDS: MULTIVITAMIN 1 TABLET PO SCH (10:29)
[2020-01-09] MEDS: FOLIC ACID 1 MG TABLET PO SCH (10:29)
[2020-01-09] MEDS: ACETAMINOPHEN 325 MG TABLET PO PRN (10:29)
[2020-01-09] MEDS: ERTAPENEM 1 GM in SODIUM CHLORIDE 0.9% 50 ML IV SCH (11:45)
[2020-01-09] MEDS: ONDANSETRON 2MG/ML, 2ML IVPush PRN (13:34)
[2020-01-09 13:53] VITALS: BP 106/76
[2020-01-09 18:57] VITALS: BP 113/80
[2020-01-10 01:12] VITALS: BP 106/76
[2020-01-10] MEDS: LIDODERM REMOVE PATCH NOTE XX SCH (05:00)
[2020-01-10 08:07] VITALS: BP 102/75
[2020-01-10] MEDS: MULTIVITAMIN 1 TABLET PO SCH (08:30)
[2020-01-10] MEDS: ACETAMINOPHEN 325 MG TABLET PO PRN (08:30)
[2020-01-10] MEDS: FOLIC ACID 1 MG TABLET PO SCH (08:31)
[2020-01-10] MEDS: DOCUSATE 100 MG CAPSULE PO SCH (08:31)
[2020-01-10] MEDS: LISINOPRIL 20 MG TABLET PO SCH ×2 (08:31→22:10)
[2020-01-10] MEDS: SENNA/DOCUSATE TABLET PO SCH (08:31)
[2020-01-10] MEDS: MAGNESIUM HYDROXIDE 8%, 30ML UDC PO SCH (08:31)
[2020-01-10] MEDS: ERTAPENEM 1 GM in SODIUM CHLORIDE 0.9% 50 ML IV SCH (12:28)
[2020-01-10 13:33] VITALS: BP 89/62
[2020-01-10 13:55] VITALS: BP 90/58
[2020-01-10] MEDS ORDERED: SODIUM CHLORIDE 0.9% 250 ML IV SCH ×2 (14:30→15:30)
[2020-01-10 15:40] VITALS: BP 102/75
[2020-01-10 19:04] VITALS: BP 109/72
[2020-01-10] MEDS: LIDODERM 5% PATCH TD SCH (20:00)
[2020-01-11 01:41] VITALS: BP 108/74
[2020-01-11 07:42] LABS: MEAN CORPUSCULAR HEMOGLOBIN 28.4 pg (27.5-34.5); MEAN CORPUSCULAR HGB CONC 32.3 g/dL (33.2-36.2); MEAN CORPUSCULAR VOLUME 87.8 fL (81-97); MEAN PLATELET VOLUME 7.4 fL (7.4-10.4); PLATELET COUNT 429 x10^3/uL (130-400); RED BLOOD COUNT 4.04 x10^6/uL (4.38-5.82); RED CELL DISTRIBUTION WIDTH 14.1 % (9.4-14.8)
[2020-01-11 07:53] LABS: ANION GAP 5 mmol/L (5-15); CALCIUM 9.2 mg/dL (8.5-10.1); CHLORIDE 103 mmol/L (98-107); CREATININE 0.77 mg/dL (0.7-1.3)
[2020-01-11 08:09] LABS: MD YES
[2020-01-11 08:11] LABS: BAND#(MANUAL) 0.93 x10^3/uL; BANDS%(MANUAL) 4 % (0-7); LYMPH#(MANUAL) 0.93 x10^3/uL (1-3.4); LYMPHS% (MANUAL) 4 % (22-44); MONOS#(MANUAL) 1.62 x10^3/uL (0.3-2.7); MONOS% (MANUAL) 7 % (2-9); SEG#(MANUAL) 19.72 x10^3/uL (1.8-6.8); SEGS% (MANUAL) 85 % (42-75)
[2020-01-11 08:12] LABS: <PLATELET ESTIMATE> INCREASED; <PLT MORPHOLOGY> NORMAL PLT MORPH; <RBC MORPHOLOGY> NORMAL
[2020-01-11 09:08] VITALS: BP 105/72
[2020-01-11] MEDS: SENNA/DOCUSATE TABLET PO SCH (09:09)
[2020-01-11] MEDS: MAGNESIUM HYDROXIDE 8%, 30ML UDC PO SCH (09:09)
[2020-01-11] MEDS: MULTIVITAMIN 1 TABLET PO SCH (09:10)
[2020-01-11] MEDS: LISINOPRIL 20 MG TABLET PO SCH ×2 (09:10→20:01)
[2020-01-11] MEDS: DOCUSATE 100 MG CAPSULE PO SCH (09:10)
[2020-01-11] MEDS: FOLIC ACID 1 MG TABLET PO SCH (09:10)
[2020-01-11] MEDS: LIDODERM REMOVE PATCH NOTE XX SCH (09:11)
[2020-01-11] MEDS: ERTAPENEM 1 GM in SODIUM CHLORIDE 0.9% 50 ML IV SCH (13:52)
[2020-01-11 14:01] VITALS: BP 109/79
[2020-01-11 18:15] VITALS: BP 106/74
[2020-01-11] MEDS: LIDODERM 5% PATCH TD SCH (20:01)
[2020-01-12 00:15] VITALS: BP 110/76
[2020-01-12] MEDS: ACETAMINOPHEN 325 MG TABLET PO PRN ×2 (03:13→19:49)
[2020-01-12 06:57] VITALS: BP 114/75
[2020-01-12] MEDS: LISINOPRIL 20 MG TABLET PO SCH ×2 (07:48→19:49)
[2020-01-12] MEDS: SENNA/DOCUSATE TABLET PO SCH (07:48)
[2020-01-12] MEDS: MAGNESIUM HYDROXIDE 8%, 30ML UDC PO SCH (07:48)
[2020-01-12] MEDS: FOLIC ACID 1 MG TABLET PO SCH (07:49)
[2020-01-12] MEDS: MULTIVITAMIN 1 TABLET PO SCH (07:49)
[2020-01-12] MEDS: DOCUSATE 100 MG CAPSULE PO SCH ×2 (07:49→19:48)
[2020-01-12] MEDS: OXYcodone/APAP 5/325MG TABLET PO PRN (07:49)
[2020-01-12] MEDS: LIDODERM REMOVE PATCH NOTE XX SCH (07:49)
[2020-01-12] MEDS: ERTAPENEM 1 GM in SODIUM CHLORIDE 0.9% 50 ML IV SCH (12:11)
[2020-01-12 12:42] VITALS: BP 92/60
[2020-01-12 19:25] VITALS: BP 103/78
[2020-01-12] MEDS: ARTIFICIAL TEARS 15 DROP/ML BOTTLE EACHEYE PRN (19:48)
[2020-01-12] MEDS: LIDODERM 5% PATCH TD SCH (19:49)
[2020-01-12] MEDS: ONDANSETRON 2MG/ML, 2ML IVPush PRN (19:59)
[2020-01-12] MEDS: BISACODYL 10 MG SUPP PR PRN (21:00)
[2020-01-13] VITALS (7 sets, daily range): BP systolic 79–145; BP diastolic 45–93
[2020-01-13] MEDS: ONDANSETRON 2MG/ML, 2ML IVPush PRN (01:30)
[2020-01-13] MEDS: OXYcodone/APAP 5/325MG TABLET PO PRN ×3 (01:30→17:26)
[2020-01-13 05:32] LABS: MEAN CORPUSCULAR HEMOGLOBIN 28.4 pg (27.5-34.5); MEAN CORPUSCULAR HGB CONC 32.4 g/dL (33.2-36.2); MEAN CORPUSCULAR VOLUME 87.8 fL (81-97); MEAN PLATELET VOLUME 7.8 fL (7.4-10.4); PLATELET COUNT 395 x10^3/uL (130-400); RED BLOOD COUNT 3.72 x10^6/uL (4.38-5.82); RED CELL DISTRIBUTION WIDTH 14.7 % (9.4-14.8)
[2020-01-13 06:19] LABS: BASOPHILS # (AUTO) 0.04 x10^3/uL (0-0.1); BASOPHILS % (AUTO) 0 % (0-1); EOSINOPHILS # (AUTO) 0.04 x10^3/uL (0-0.4); EOSINOPHILS % (AUTO) 0 % (1-7); LYMPHOCYTES % (AUTO) 7 % (22-44); MD MORPH REVIEW ONLY; MONOCYTES % (AUTO) 2 % (2-9); NEUTROPHILS # (AUTO) 15.06 x10^3/uL (1.8-6.8); NEUTROPHILS % (AUTO) 90 % (42-75)
[2020-01-13 06:20] LABS: <PLATELET ESTIMATE> ADEQUATE; <PLT MORPHOLOGY> NORMAL PLT MORPH; <RBC MORPHOLOGY> NORMAL; TOXIC GRAN 1+
[2020-01-13] MEDS: LIDODERM REMOVE PATCH NOTE XX SCH (08:00)
[2020-01-13] MEDS: SENNA/DOCUSATE TABLET PO SCH (09:35)
[2020-01-13] MEDS: MULTIVITAMIN 1 TABLET PO SCH (09:35)
[2020-01-13] MEDS: LISINOPRIL 20 MG TABLET PO SCH ×2 (09:37→21:00)
[2020-01-13] MEDS: FOLIC ACID 1 MG TABLET PO SCH (09:37)
[2020-01-13] MEDS: MAGNESIUM HYDROXIDE 8%, 30ML UDC PO SCH (09:37)
[2020-01-13] MEDS: ARTIFICIAL TEARS 15 DROP/ML BOTTLE EACHEYE PRN (12:10)
[2020-01-13] MEDS: ERTAPENEM 1 GM in SODIUM CHLORIDE 0.9% 50 ML IV SCH (12:10)
[2020-01-13] MEDS: LIDODERM 5% PATCH TD SCH (20:00)
[2020-01-13] MEDS: SODIUM CHLORIDE 0.9% 500 ML IV SCH ×2 (20:19→22:00)
[2020-01-13] MEDS ORDERED: SODIUM CHLORIDE 0.9%, IRRG.SOLN 1,000 ML IRRIG ONE (20:30)
[2020-01-14 01:23] VITALS: BP 113/80
[2020-01-14 07:19] VITALS: BP 124/84
[2020-01-14] MEDS: LIDODERM REMOVE PATCH NOTE XX SCH (08:00)
[2020-01-14] MEDS: SENNA/DOCUSATE TABLET PO SCH (08:54)
[2020-01-14] MEDS: MULTIVITAMIN 1 TABLET PO SCH (08:54)
[2020-01-14] MEDS: FOLIC ACID 1 MG TABLET PO SCH (08:55)
[2020-01-14] MEDS: DOCUSATE 100 MG CAPSULE PO SCH (08:55)
[2020-01-14] MEDS: MAGNESIUM HYDROXIDE 8%, 30ML UDC PO SCH (08:55)
[2020-01-14] MEDS: LISINOPRIL 20 MG TABLET PO SCH ×2 (08:56→20:54)
[2020-01-14] MEDS: OXYcodone/APAP 5/325MG TABLET PO PRN (12:02)
[2020-01-14] MEDS: LIDODERM 5% PATCH TD SCH (12:03)
[2020-01-14 12:41] VITALS: BP 118/83
[2020-01-14] MEDS: ERTAPENEM 1 GM in SODIUM CHLORIDE 0.9% 50 ML IV SCH (13:36)
[2020-01-14 18:12] VITALS: BP 120/81
[2020-01-15] MEDS: LIDODERM REMOVE PATCH NOTE XX SCH (01:30)
[2020-01-15 02:05] VITALS: BP 106/74
[2020-01-15 06:37] VITALS: BP 109/70
[2020-01-15] MEDS: MAGNESIUM HYDROXIDE 8%, 30ML UDC PO SCH (10:04)
[2020-01-15] MEDS: MULTIVITAMIN 1 TABLET PO SCH (10:04)
[2020-01-15] MEDS: FOLIC ACID 1 MG TABLET PO SCH (10:04)
[2020-01-15] MEDS: LISINOPRIL 20 MG TABLET PO SCH ×2 (10:04→20:39)
[2020-01-15] MEDS: SENNA/DOCUSATE TABLET PO SCH (10:04)
[2020-01-15] MEDS: OXYcodone/APAP 5/325MG TABLET PO PRN ×2 (10:04→21:29)
[2020-01-15] MEDS: DOCUSATE 100 MG CAPSULE PO SCH (10:04)
[2020-01-15] MEDS: ERTAPENEM 1 GM in SODIUM CHLORIDE 0.9% 50 ML IV SCH (12:27)
[2020-01-15 12:35] VITALS: BP 126/81
[2020-01-15] MEDS: KETOROLAC 30 MG/1 ML IVPush PRN (15:13)
[2020-01-15 18:47] VITALS: BP 125/86
[2020-01-15] MEDS: LIDODERM 5% PATCH TD SCH (20:41)
[2020-01-16 01:49] VITALS: BP 101/73
[2020-01-16 04:58] LABS: BASOPHILS # (AUTO) 0.09 x10^3/uL (0-0.1); BASOPHILS % (AUTO) 1 % (0-1); EOSINOPHILS # (AUTO) 0.08 x10^3/uL (0-0.4); EOSINOPHILS % (AUTO) 1 % (1-7); LYMPHOCYTES # (AUTO) 1.44 x10^3/uL (1-3.4); LYMPHOCYTES % (AUTO) 9 % (22-44); MD NO; MEAN CORPUSCULAR HEMOGLOBIN 28.6 pg (27.5-34.5); MEAN CORPUSCULAR HGB CONC 32.6 g/dL (33.2-36.2); MEAN CORPUSCULAR VOLUME 87.6 fL (81-97); MEAN PLATELET VOLUME 7.9 fL (7.4-10.4); MONOCYTES # (AUTO) 0.53 x10^3/uL (0.2-0.8); MONOCYTES % (AUTO) 3 % (2-9); NEUTROPHILS # (AUTO) 13.44 x10^3/uL (1.8-6.8); NEUTROPHILS % (AUTO) 86 % (42-75); PLATELET COUNT 358 x10^3/uL (130-400); RED BLOOD COUNT 3.75 x10^6/uL (4.38-5.82)
[2020-01-16 05:02] LABS: ANION GAP 5 mmol/L (5-15); CALCIUM 8.8 mg/dL (8.5-10.1); CHLORIDE 104 mmol/L (98-107)
[2020-01-16 07:04] VITALS: BP 108/78
[2020-01-16] MEDS: LIDODERM REMOVE PATCH NOTE XX SCH (08:00)
[2020-01-16] MEDS: DOCUSATE 100 MG CAPSULE PO SCH (10:03)
[2020-01-16] MEDS: SENNA/DOCUSATE TABLET PO SCH (10:03)
[2020-01-16] MEDS: LISINOPRIL 20 MG TABLET PO SCH ×2 (10:03→20:54)
[2020-01-16] MEDS: FOLIC ACID 1 MG TABLET PO SCH (10:03)
[2020-01-16] MEDS: MULTIVITAMIN 1 TABLET PO SCH (10:03)
[2020-01-16] MEDS: MAGNESIUM HYDROXIDE 8%, 30ML UDC PO SCH (10:04)
[2020-01-16] MEDS: OXYcodone/APAP 5/325MG TABLET PO PRN (10:04)
[2020-01-16] MEDS: LIDODERM 5% PATCH TD SCH (10:04)
[2020-01-16] MEDS: ERTAPENEM 1 GM in SODIUM CHLORIDE 0.9% 50 ML IV SCH (12:59)
[2020-01-16 13:57] VITALS: BP 110/73
[2020-01-16 18:31] VITALS: BP 88/63
[2020-01-16 18:33] VITALS: BP 88/63
[2020-01-16] MEDS: KETOROLAC 30 MG/1 ML IVPush PRN (21:01)
[2020-01-17 01:50] VITALS: BP 114/86
[2020-01-17] MEDS: OXYcodone/APAP 5/325MG TABLET PO PRN ×2 (04:22→17:57)
[2020-01-17 05:19] LABS: BASOPHILS # (AUTO) 0.05 x10^3/uL (0-0.1); BASOPHILS % (AUTO) 0 % (0-1); EOSINOPHILS # (AUTO) 0.07 x10^3/uL (0-0.4); EOSINOPHILS % (AUTO) 1 % (1-7); LYMPHOCYTES % (AUTO) 13 % (22-44); MD NO; MEAN CORPUSCULAR HEMOGLOBIN 28.8 pg (27.5-34.5); MEAN CORPUSCULAR HGB CONC 32.9 g/dL (33.2-36.2); MEAN CORPUSCULAR VOLUME 87.6 fL (81-97); MEAN PLATELET VOLUME 7.8 fL (7.4-10.4); MONOCYTES # (AUTO) 0.52 x10^3/uL (0.2-0.8); MONOCYTES % (AUTO) 4 % (2-9); NEUTROPHILS # (AUTO) 10.55 x10^3/uL (1.8-6.8); NEUTROPHILS % (AUTO) 83 % (42-75); PLATELET COUNT 392 x10^3/uL (130-400); RED BLOOD COUNT 3.44 x10^6/uL (4.38-5.82)
[2020-01-17 05:37] LABS: ALANINE AMINOTRANSFERASE 12 U/L (12-78); ALBUMIN 2.1 g/dL (3.4-5.0); ANION GAP 5 mmol/L (5-15); CALCIUM 8.4 mg/dL (8.5-10.1); CHLORIDE 107 mmol/L (98-107); CREATININE 0.78 mg/dL (0.7-1.3)
[2020-01-17 05:43] LABS: ALKALINE PHOSPHATASE 81 U/L (45-117); BILIRUBIN,TOTAL 0.3 mg/dL (0.2-1.0); TOTAL PROTEIN 6.5 g/dL (6.4-8.2)
[2020-01-17 06:02] LABS: HCT (SEDRATE) 30.1 % (39.2-51.8)
[2020-01-17 07:11] VITALS: BP 124/84
[2020-01-17] MEDS: LIDODERM REMOVE PATCH NOTE XX SCH (08:00)
[2020-01-17] MEDS: MULTIVITAMIN 1 TABLET PO SCH (09:36)
[2020-01-17] MEDS: DOCUSATE 100 MG CAPSULE PO SCH (09:36)
[2020-01-17] MEDS: SENNA/DOCUSATE TABLET PO SCH (09:36)
[2020-01-17] MEDS: FOLIC ACID 1 MG TABLET PO SCH (09:36)
[2020-01-17] MEDS: MAGNESIUM HYDROXIDE 8%, 30ML UDC PO SCH (09:36)
[2020-01-17] MEDS: LISINOPRIL 20 MG TABLET PO SCH ×2 (09:36→20:52)
[2020-01-17 13:38] LABS: MEAN CORPUSCULAR HGB CONC 31.8 g/dL (33.2-36.2); MEAN PLATELET VOLUME 7.7 fL (7.4-10.4); PLATELET COUNT 416 x10^3/uL (130-400); RED BLOOD COUNT 3.75 x10^6/uL (4.38-5.82); RED CELL DISTRIBUTION WIDTH 15.3 % (9.4-14.8)
[2020-01-17 14:06] LABS: BASOPHILS # (AUTO) 0.03 x10^3/uL (0-0.1); BASOPHILS % (AUTO) 0 % (0-1); EOSINOPHILS # (AUTO) 0.07 x10^3/uL (0-0.4); EOSINOPHILS % (AUTO) 1 % (1-7); LYMPHOCYTES # (AUTO) 1.14 x10^3/uL (1-3.4); LYMPHOCYTES % (AUTO) 9 % (22-44); MD SCAN; MONOCYTES % (AUTO) 3 % (2-9); NEUTROPHILS # (AUTO) 10.66 x10^3/uL (1.8-6.8); NEUTROPHILS % (AUTO) 87 % (42-75)
[2020-01-17 15:14] VITALS: BP 112/65
[2020-01-17 19:20] VITALS: BP 109/74
[2020-01-17] MEDS: LIDODERM 5% PATCH TD SCH (20:00)
[2020-01-18 00:45] VITALS: BP 128/86
[2020-01-18] MEDS: ONDANSETRON 2MG/ML, 2ML IVPush PRN (04:39)
[2020-01-18 05:46] LABS: HCT (SEDRATE) 33.6 % (39.2-51.8)
[2020-01-18] MEDS: OXYcodone/APAP 5/325MG TABLET PO PRN ×2 (05:48→21:04)
[2020-01-18 06:46] VITALS: BP 121/79
[2020-01-18] MEDS: LIDODERM REMOVE PATCH NOTE XX SCH (08:00)
[2020-01-18] MEDS: DOCUSATE 100 MG CAPSULE PO SCH (09:00)
[2020-01-18] MEDS: MULTIVITAMIN 1 TABLET PO SCH (09:10)
[2020-01-18] MEDS: FOLIC ACID 1 MG TABLET PO SCH (09:11)
[2020-01-18] MEDS: MAGNESIUM HYDROXIDE 8%, 30ML UDC PO SCH (09:11)
[2020-01-18] MEDS: LISINOPRIL 20 MG TABLET PO SCH ×2 (09:11→21:00)
[2020-01-18] MEDS: SENNA/DOCUSATE TABLET PO SCH (09:11)
[2020-01-18] MEDS: KETOROLAC 30 MG/1 ML IVPush PRN (09:11)
[2020-01-18 12:56] VITALS: BP 113/81
[2020-01-18 18:37] VITALS: BP 93/66
[2020-01-18] MEDS: LIDODERM 5% PATCH TD SCH (20:00)
[2020-01-19 03:49] VITALS: BP 134/95
[2020-01-19 07:00] VITALS: BP 153/87
[2020-01-19] MEDS: LIDODERM REMOVE PATCH NOTE XX SCH (08:00)
[2020-01-19] MEDS: SENNA/DOCUSATE TABLET PO SCH (09:00)
[2020-01-19] MEDS: DOCUSATE 100 MG CAPSULE PO SCH (09:00)
[2020-01-19] MEDS: MAGNESIUM HYDROXIDE 8%, 30ML UDC PO SCH (09:00)
[2020-01-19] MEDS: LISINOPRIL 20 MG TABLET PO SCH ×2 (09:35→20:30)
[2020-01-19] MEDS: MULTIVITAMIN 1 TABLET PO SCH (09:35)
[2020-01-19] MEDS: FOLIC ACID 1 MG TABLET PO SCH (09:35)
[2020-01-19 12:43] VITALS: BP 119/80
[2020-01-19] MEDS: OXYcodone/APAP 5/325MG TABLET PO PRN (14:54)
[2020-01-19 18:50] VITALS: BP 113/77
[2020-01-19] MEDS: LIDODERM 5% PATCH TD SCH (20:00)
[2020-01-20] MEDS: KETOROLAC 30 MG/1 ML IVPush PRN (01:24)
[2020-01-20 02:31] VITALS: BP 109/72
[2020-01-20] MEDS: OXYcodone/APAP 5/325MG TABLET PO PRN ×4 (02:38→18:49)
[2020-01-20 07:01] VITALS: BP 131/81
[2020-01-20] MEDS: LIDODERM REMOVE PATCH NOTE XX SCH (08:00)
[2020-01-20] MEDS: DOCUSATE 100 MG CAPSULE PO SCH (08:13)
[2020-01-20] MEDS: LISINOPRIL 20 MG TABLET PO SCH ×2 (08:13→21:43)
[2020-01-20] MEDS: MULTIVITAMIN 1 TABLET PO SCH (08:14)
[2020-01-20] MEDS: FOLIC ACID 1 MG TABLET PO SCH (08:14)
[2020-01-20] MEDS: SENNA/DOCUSATE TABLET PO SCH (08:14)
[2020-01-20] MEDS: MAGNESIUM HYDROXIDE 8%, 30ML UDC PO SCH (08:14)
[2020-01-20 14:00] VITALS: BP 117/76
[2020-01-20 19:05] VITALS: BP 127/82
[2020-01-20] MEDS: LIDODERM 5% PATCH TD SCH (20:00)
[2020-01-21 01:08] VITALS: BP 149/98
[2020-01-21] MEDS: OXYcodone/APAP 5/325MG TABLET PO PRN ×4 (05:07→20:49)
[2020-01-21 08:14] VITALS: BP 95/62
[2020-01-21] MEDS: DOCUSATE 100 MG CAPSULE PO SCH (09:08)
[2020-01-21] MEDS: MAGNESIUM HYDROXIDE 8%, 30ML UDC PO SCH (09:08)
[2020-01-21] MEDS: POLYETHYLENE GLYCOL 17 GM PACKET PO PRN (09:09)
[2020-01-21] MEDS: LIDODERM REMOVE PATCH NOTE XX SCH (09:09)
[2020-01-21] MEDS: FOLIC ACID 1 MG TABLET PO SCH (09:09)
[2020-01-21] MEDS: MULTIVITAMIN 1 TABLET PO SCH (09:09)
[2020-01-21 09:10] VITALS: BP 96/71
[2020-01-21] MEDS: LISINOPRIL 20 MG TABLET PO SCH ×2 (09:11→20:54)
[2020-01-21] MEDS: SENNA/DOCUSATE TABLET PO SCH (09:11)
[2020-01-21] MEDS: BISACODYL 10 MG SUPP PR PRN (12:12)
[2020-01-21 13:24] VITALS: BP 108/74
[2020-01-21 19:42] VITALS: BP 90/59
[2020-01-21] MEDS: LIDODERM 5% PATCH TD SCH (20:00)
[2020-01-22] MEDS: OXYcodone/APAP 5/325MG TABLET PO PRN ×4 (00:48→21:05)
[2020-01-22 00:50] VITALS: BP 104/68
[2020-01-22 06:49] VITALS: BP 90/56
[2020-01-22] MEDS: LISINOPRIL 20 MG TABLET PO SCH ×2 (08:19→20:54)
[2020-01-22] MEDS: LIDODERM REMOVE PATCH NOTE XX SCH (08:20)
[2020-01-22] MEDS: DOCUSATE 100 MG CAPSULE PO SCH (08:49)
[2020-01-22] MEDS: SENNA/DOCUSATE TABLET PO SCH (08:49)
[2020-01-22] MEDS: MULTIVITAMIN 1 TABLET PO SCH (08:49)
[2020-01-22] MEDS: MAGNESIUM HYDROXIDE 8%, 30ML UDC PO SCH (08:49)
[2020-01-22] MEDS: FOLIC ACID 1 MG TABLET PO SCH (08:49)
[2020-01-22 13:39] VITALS: BP 102/63
[2020-01-22 18:59] VITALS: BP 125/88
[2020-01-22] MEDS: LIDODERM 5% PATCH TD SCH (19:34)
[2020-01-23 01:51] VITALS: BP 94/60
[2020-01-23 07:23] VITALS: BP 96/67
[2020-01-23] MEDS: LISINOPRIL 20 MG TABLET PO SCH ×2 (07:40→19:22)
[2020-01-23] MEDS: MAGNESIUM HYDROXIDE 8%, 30ML UDC PO SCH (07:43)
[2020-01-23] MEDS: FOLIC ACID 1 MG TABLET PO SCH (07:43)
[2020-01-23] MEDS: MULTIVITAMIN 1 TABLET PO SCH (07:43)
[2020-01-23] MEDS: OXYcodone/APAP 5/325MG TABLET PO PRN ×4 (07:43→21:46)
[2020-01-23] MEDS: SENNA/DOCUSATE TABLET PO SCH (07:44)
[2020-01-23] MEDS: DOCUSATE 100 MG CAPSULE PO SCH (07:44)
[2020-01-23] MEDS: LIDODERM REMOVE PATCH NOTE XX SCH (08:00)
[2020-01-23 14:57] VITALS: BP 90/58
[2020-01-23] MEDS: OxyconTIN ER 10 MG TAB.ER PO SCH (15:01)
[2020-01-23 19:17] VITALS: BP 99/62
[2020-01-23] MEDS: LIDODERM 5% PATCH TD SCH (20:00)
[2020-01-24 02:40] VITALS: BP 105/71
[2020-01-24] MEDS: OxyconTIN ER 10 MG TAB.ER PO SCH ×2 (02:43→17:30)
[2020-01-24 08:40] VITALS: BP 113/74
[2020-01-24] MEDS: MULTIVITAMIN 1 TABLET PO SCH (08:42)
[2020-01-24] MEDS: LISINOPRIL 20 MG TABLET PO SCH ×2 (08:42→19:25)
[2020-01-24] MEDS: MAGNESIUM HYDROXIDE 8%, 30ML UDC PO SCH (08:43)
[2020-01-24] MEDS: LIDODERM REMOVE PATCH NOTE XX SCH (08:43)
[2020-01-24] MEDS: SENNA/DOCUSATE TABLET PO SCH (08:43)
[2020-01-24] MEDS: DOCUSATE 100 MG CAPSULE PO SCH (08:43)
[2020-01-24] MEDS: FOLIC ACID 1 MG TABLET PO SCH (08:43)
[2020-01-24 15:13] VITALS: BP 118/79
[2020-01-24] MEDS: OXYcodone/APAP 5/325MG TABLET PO PRN ×2 (19:25→23:33)
[2020-01-24] MEDS: LIDODERM 5% PATCH TD SCH (19:25)
[2020-01-24 19:53] VITALS: BP 109/76
[2020-01-25 00:11] VITALS: BP 93/57
[2020-01-25] MEDS: OxyconTIN ER 10 MG TAB.ER PO SCH ×3 (03:59→18:03)
[2020-01-25] MEDS: OXYcodone/APAP 5/325MG TABLET PO PRN ×4 (03:59→20:56)
[2020-01-25] MEDS: LIDODERM REMOVE PATCH NOTE XX SCH (08:00)
[2020-01-25 08:07] VITALS: BP 87/60
[2020-01-25 08:12] VITALS: BP 80/49
[2020-01-25] MEDS: MULTIVITAMIN 1 TABLET PO SCH (08:14)
[2020-01-25] MEDS: SENNA/DOCUSATE TABLET PO SCH (08:14)
[2020-01-25] MEDS: DOCUSATE 100 MG CAPSULE PO SCH (08:14)
[2020-01-25] MEDS: FOLIC ACID 1 MG TABLET PO SCH (08:14)
[2020-01-25] MEDS: MAGNESIUM HYDROXIDE 8%, 30ML UDC PO SCH (08:14)
[2020-01-25] MEDS: LISINOPRIL 20 MG TABLET PO SCH ×2 (08:15→20:52)
[2020-01-25 11:29] VITALS: BP 83/39
[2020-01-25 13:42] VITALS: BP 97/63
[2020-01-25 19:51] VITALS: BP 98/68
[2020-01-25] MEDS: LIDODERM 5% PATCH TD SCH (20:00)
[2020-01-26 01:09] VITALS: BP 116/78
[2020-01-26] MEDS: OXYcodone/APAP 5/325MG TABLET PO PRN ×2 (02:02→08:15)
[2020-01-26] MEDS: OxyconTIN ER 10 MG TAB.ER PO SCH ×2 (05:50→18:27)
[2020-01-26 06:47] VITALS: BP 87/48
[2020-01-26] MEDS: LIDODERM REMOVE PATCH NOTE XX SCH (08:00)
[2020-01-26] MEDS: MAGNESIUM HYDROXIDE 8%, 30ML UDC PO SCH (08:15)
[2020-01-26] MEDS: DOCUSATE 100 MG CAPSULE PO SCH (08:16)
[2020-01-26] MEDS: MULTIVITAMIN 1 TABLET PO SCH (08:16)
[2020-01-26] MEDS: SENNA/DOCUSATE TABLET PO SCH (08:16)
[2020-01-26] MEDS: FOLIC ACID 1 MG TABLET PO SCH (08:16)
[2020-01-26] MEDS: LISINOPRIL 20 MG TABLET PO SCH ×2 (08:16→19:51)
[2020-01-26 14:25] VITALS: BP_SYST 76; BP_SYST 78; BP_DIAS 46; BP_DIAS 58
[2020-01-26 14:38] VITALS: BP 76/46
[2020-01-26] MEDS: HYDROmorphone 2MG TABLET PO PRN ×2 (16:36→20:40)
[2020-01-26 19:34] VITALS: BP 100/68
[2020-01-26] MEDS: LIDODERM 5% PATCH TD SCH (19:52)
[2020-01-27 00:31] VITALS: BP 113/83
[2020-01-27] MEDS: HYDROmorphone 2MG TABLET PO PRN ×5 (00:37→23:13)
[2020-01-27] MEDS: OxyconTIN ER 10 MG TAB.ER PO SCH ×2 (05:29→17:11)
[2020-01-27 06:32] VITALS: BP 100/62
[2020-01-27] MEDS: LIDODERM REMOVE PATCH NOTE XX SCH (08:00)
[2020-01-27] MEDS: DOCUSATE 100 MG CAPSULE PO SCH (09:21)
[2020-01-27] MEDS: MULTIVITAMIN 1 TABLET PO SCH (09:21)
[2020-01-27] MEDS: MAGNESIUM HYDROXIDE 8%, 30ML UDC PO SCH (09:21)
[2020-01-27] MEDS: LISINOPRIL 20 MG TABLET PO SCH ×2 (09:21→20:37)
[2020-01-27] MEDS: SENNA/DOCUSATE TABLET PO SCH (09:21)
[2020-01-27] MEDS: FOLIC ACID 1 MG TABLET PO SCH (09:21)
[2020-01-27] MEDS: OXYcodone/APAP 5/325MG TABLET PO PRN ×3 (10:31→20:37)
[2020-01-27 12:30] VITALS: BP 96/61
[2020-01-27] MEDS: LIDODERM 5% PATCH TD SCH (18:59)
[2020-01-27 20:33] VITALS: BP 99/60
[2020-01-28 00:14] VITALS: BP 101/65
[2020-01-28] MEDS: HYDROmorphone 2MG TABLET PO PRN ×2 (04:01→13:49)
[2020-01-28] MEDS: OxyconTIN ER 10 MG TAB.ER PO SCH ×2 (05:05→17:35)
[2020-01-28 06:54] VITALS: BP 95/62
[2020-01-28] MEDS: LIDODERM REMOVE PATCH NOTE XX SCH (08:00)
[2020-01-28] MEDS: LISINOPRIL 20 MG TABLET PO SCH ×2 (09:00→21:00)
[2020-01-28] MEDS: SENNA/DOCUSATE TABLET PO SCH (10:02)
[2020-01-28] MEDS: DOCUSATE 100 MG CAPSULE PO SCH (10:02)
[2020-01-28] MEDS: MULTIVITAMIN 1 TABLET PO SCH (10:03)
[2020-01-28] MEDS: OXYcodone/APAP 5/325MG TABLET PO PRN ×2 (10:03→23:01)
[2020-01-28] MEDS: MAGNESIUM HYDROXIDE 8%, 30ML UDC PO SCH (10:03)
[2020-01-28] MEDS: FOLIC ACID 1 MG TABLET PO SCH (10:03)
[2020-01-28 15:18] VITALS: BP 100/65
[2020-01-28] MEDS: LIDODERM 5% PATCH TD SCH (20:00)
[2020-01-28 20:37] VITALS: BP 106/73
[2020-01-29 02:13] VITALS: BP 106/67
[2020-01-29] MEDS: OXYcodone/APAP 5/325MG TABLET PO PRN ×2 (04:23→20:07)
[2020-01-29] MEDS: OxyconTIN ER 10 MG TAB.ER PO SCH ×2 (05:50→17:05)
[2020-01-29] MEDS: LIDODERM REMOVE PATCH NOTE XX SCH (08:00)
[2020-01-29] MEDS: MAGNESIUM HYDROXIDE 8%, 30ML UDC PO SCH (08:22)
[2020-01-29] MEDS: SENNA/DOCUSATE TABLET PO SCH (08:22)
[2020-01-29] MEDS: LISINOPRIL 20 MG TABLET PO SCH ×2 (08:23→20:06)
[2020-01-29] MEDS: DOCUSATE 100 MG CAPSULE PO SCH (08:23)
[2020-01-29] MEDS: MULTIVITAMIN 1 TABLET PO SCH (08:23)
[2020-01-29] MEDS: FOLIC ACID 1 MG TABLET PO SCH (08:23)
[2020-01-29 08:35] VITALS: BP 101/64
[2020-01-29 12:28] VITALS: BP 105/72
[2020-01-29 19:10] VITALS: BP 105/71
[2020-01-29] MEDS: LIDODERM 5% PATCH TD SCH (20:00)
[2020-01-30] MEDS: OXYcodone/APAP 5/325MG TABLET PO PRN ×4 (02:22→22:44)
[2020-01-30 02:30] VITALS: BP 112/75
[2020-01-30] MEDS: OxyconTIN ER 10 MG TAB.ER PO SCH ×2 (05:38→17:50)
[2020-01-30] MEDS: ARTIFICIAL TEARS 15 DROP/ML BOTTLE EACHEYE PRN (05:39)
[2020-01-30 06:56] VITALS: BP 94/60
[2020-01-30] MEDS: LIDODERM REMOVE PATCH NOTE XX SCH (06:56)
[2020-01-30] MEDS: FOLIC ACID 1 MG TABLET PO SCH (08:30)
[2020-01-30] MEDS: MULTIVITAMIN 1 TABLET PO SCH (08:30)
[2020-01-30] MEDS: DOCUSATE 100 MG CAPSULE PO SCH (08:31)
[2020-01-30] MEDS: MAGNESIUM HYDROXIDE 8%, 30ML UDC PO SCH (08:31)
[2020-01-30] MEDS: LISINOPRIL 20 MG TABLET PO SCH ×2 (08:31→21:27)
[2020-01-30] MEDS: SENNA/DOCUSATE TABLET PO SCH (08:32)
[2020-01-30 13:10] VITALS: BP 96/54
[2020-01-30] MEDS: HYDROmorphone 2MG TABLET PO PRN (19:44)
[2020-01-30] MEDS: LIDODERM 5% PATCH TD SCH (19:44)
[2020-01-30 20:05] VITALS: BP 111/79
[2020-01-30] MEDS: DOCUSATE 100 MG CAPSULE PO PRN (21:27)
[2020-01-31] MEDS: HYDROmorphone 2MG TABLET PO PRN ×2 (00:25→11:21)
[2020-01-31 01:17] VITALS: BP 90/59
[2020-01-31] MEDS: OXYcodone/APAP 5/325MG TABLET PO PRN ×4 (02:54→23:26)
[2020-01-31] MEDS: OxyconTIN ER 10 MG TAB.ER PO SCH ×2 (05:46→17:54)
[2020-01-31] MEDS: LIDODERM REMOVE PATCH NOTE XX SCH (06:51)
[2020-01-31] MEDS: MULTIVITAMIN 1 TABLET PO SCH (08:20)
[2020-01-31] MEDS: FOLIC ACID 1 MG TABLET PO SCH (08:20)
[2020-01-31] MEDS: LISINOPRIL 20 MG TABLET PO SCH ×2 (08:20→21:00)
[2020-01-31] MEDS: SENNA/DOCUSATE TABLET PO SCH (08:21)
[2020-01-31] MEDS: MAGNESIUM HYDROXIDE 8%, 30ML UDC PO SCH (08:21)
[2020-01-31] MEDS: DOCUSATE 100 MG CAPSULE PO SCH (08:23)
[2020-01-31 08:31] VITALS: BP 97/64
[2020-01-31 14:37] VITALS: BP 86/52
[2020-01-31 19:40] VITALS: BP 97/62
[2020-01-31] MEDS: LIDODERM 5% PATCH TD SCH (20:00)
[2020-02-01 00:38] VITALS: BP 112/69
[2020-02-01] MEDS: HYDROmorphone 2MG TABLET PO PRN ×2 (02:20→19:29)
[2020-02-01] MEDS: OxyconTIN ER 10 MG TAB.ER PO SCH ×2 (05:46→18:04)
[2020-02-01 07:59] VITALS: BP 104/70
[2020-02-01] MEDS: SENNA/DOCUSATE TABLET PO SCH (09:33)
[2020-02-01] MEDS: MULTIVITAMIN 1 TABLET PO SCH (09:33)
[2020-02-01] MEDS: FOLIC ACID 1 MG TABLET PO SCH (09:34)
[2020-02-01] MEDS: DOCUSATE 100 MG CAPSULE PO SCH (09:34)
[2020-02-01] MEDS: MAGNESIUM HYDROXIDE 8%, 30ML UDC PO SCH (09:34)
[2020-02-01] MEDS: LISINOPRIL 20 MG TABLET PO SCH ×2 (09:34→19:41)
[2020-02-01] MEDS: LIDODERM REMOVE PATCH NOTE XX SCH (09:37)
[2020-02-01] MEDS: OXYcodone/APAP 5/325MG TABLET PO PRN ×3 (09:58→22:14)
[2020-02-01 12:03] VITALS: BP 94/60
[2020-02-01] MEDS: BISACODYL 10 MG SUPP PR PRN (13:23)
[2020-02-01 18:32] VITALS: BP 97/54
[2020-02-01] MEDS: LIDODERM 5% PATCH TD SCH (19:35)
[2020-02-02 00:51] VITALS: BP 97/65
[2020-02-02] MEDS: OXYcodone/APAP 5/325MG TABLET PO PRN (02:48)
[2020-02-02] MEDS: OxyconTIN ER 10 MG TAB.ER PO SCH ×2 (05:57→17:26)
[2020-02-02 06:23] VITALS: BP 94/64
[2020-02-02] MEDS: LIDODERM REMOVE PATCH NOTE XX SCH (08:00)
[2020-02-02] MEDS: MAGNESIUM HYDROXIDE 8%, 30ML UDC PO SCH (09:00)
[2020-02-02] MEDS: SENNA/DOCUSATE TABLET PO SCH (09:00)
[2020-02-02] MEDS: FOLIC ACID 1 MG TABLET PO SCH (09:49)
[2020-02-02] MEDS: DOCUSATE 100 MG CAPSULE PO SCH (09:49)
[2020-02-02] MEDS: MULTIVITAMIN 1 TABLET PO SCH (09:49)
[2020-02-02] MEDS: HYDROmorphone 2MG TABLET PO PRN ×3 (09:50→19:40)
[2020-02-02] MEDS: LISINOPRIL 20 MG TABLET PO SCH ×2 (09:50→19:41)
[2020-02-02 12:10] VITALS: BP 118/79
[2020-02-02 19:01] VITALS: BP 116/80
[2020-02-02] MEDS: LIDODERM 5% PATCH TD SCH (19:18)
[2020-02-03] MEDS: HYDROmorphone 2MG TABLET PO PRN ×2 (00:11→20:18)
[2020-02-03 00:12] VITALS: BP 111/80
[2020-02-03] MEDS: OxyconTIN ER 10 MG TAB.ER PO SCH ×2 (05:19→17:19)
[2020-02-03 07:51] VITALS: BP 119/77
[2020-02-03] MEDS: LIDODERM REMOVE PATCH NOTE XX SCH (08:00)
[2020-02-03] MEDS: MULTIVITAMIN 1 TABLET PO SCH (09:05)
[2020-02-03] MEDS: SENNA/DOCUSATE TABLET PO SCH (09:05)
[2020-02-03] MEDS: DOCUSATE 100 MG CAPSULE PO SCH (09:05)
[2020-02-03] MEDS: MAGNESIUM HYDROXIDE 8%, 30ML UDC PO SCH (09:05)
[2020-02-03] MEDS: LISINOPRIL 20 MG TABLET PO SCH ×2 (09:06→20:19)
[2020-02-03] MEDS: FOLIC ACID 1 MG TABLET PO SCH (09:06)
[2020-02-03] MEDS: OXYcodone/APAP 5/325MG TABLET PO PRN ×2 (12:58→17:19)
[2020-02-03 12:59] VITALS: BP 101/68
[2020-02-03] MEDS: LIDODERM 5% PATCH TD SCH (19:12)
[2020-02-03 20:15] VITALS: BP 95/60
[2020-02-03] MEDS: DOCUSATE 100 MG CAPSULE PO PRN (20:18)
[2020-02-04] MEDS: OXYcodone/APAP 5/325MG TABLET PO PRN ×5 (00:18→21:41)
[2020-02-04 00:40] VITALS: BP 99/57
[2020-02-04] MEDS: OxyconTIN ER 10 MG TAB.ER PO SCH ×2 (05:14→17:31)
[2020-02-04 07:10] VITALS: BP 101/64
[2020-02-04] MEDS: LIDODERM REMOVE PATCH NOTE XX SCH (08:00)
[2020-02-04] MEDS: DOCUSATE 100 MG CAPSULE PO SCH (09:00)
[2020-02-04] MEDS: LISINOPRIL 20 MG TABLET PO SCH ×2 (09:00→21:00)
[2020-02-04] MEDS: MAGNESIUM HYDROXIDE 8%, 30ML UDC PO SCH (09:00)
[2020-02-04] MEDS: FOLIC ACID 1 MG TABLET PO SCH (09:06)
[2020-02-04] MEDS: MULTIVITAMIN 1 TABLET PO SCH (09:06)
[2020-02-04] MEDS: SENNA/DOCUSATE TABLET PO SCH (09:08)
[2020-02-04 14:11] VITALS: BP 93/43
[2020-02-04 18:52] VITALS: BP 94/62
[2020-02-04] MEDS: LIDODERM 5% PATCH TD SCH (20:00)
[2020-02-04] MEDS: DOCUSATE 100 MG CAPSULE PO PRN (21:40)
[2020-02-05] MEDS: OXYcodone/APAP 5/325MG TABLET PO PRN ×4 (01:25→21:17)
[2020-02-05 02:27] VITALS: BP 95/58
[2020-02-05] MEDS: OxyconTIN ER 10 MG TAB.ER PO SCH ×2 (06:16→17:37)
[2020-02-05 06:44] VITALS: BP 94/57
[2020-02-05] MEDS: LIDODERM REMOVE PATCH NOTE XX SCH (08:00)
[2020-02-05] MEDS: LISINOPRIL 20 MG TABLET PO SCH ×2 (08:16→20:53)
[2020-02-05] MEDS: FOLIC ACID 1 MG TABLET PO SCH (08:16)
[2020-02-05] MEDS: MAGNESIUM HYDROXIDE 8%, 30ML UDC PO SCH (08:16)
[2020-02-05] MEDS: MULTIVITAMIN 1 TABLET PO SCH (08:16)
[2020-02-05] MEDS: SENNA/DOCUSATE TABLET PO SCH (08:16)
[2020-02-05] MEDS: DOCUSATE 100 MG CAPSULE PO SCH (08:17)
[2020-02-05 13:05] VITALS: BP 98/58
[2020-02-05 18:32] VITALS: BP 94/55
[2020-02-05] MEDS: LIDODERM 5% PATCH TD SCH (20:00)
[2020-02-05] MEDS: ARTIFICIAL TEARS 15 DROP/ML BOTTLE EACHEYE PRN (21:17)
[2020-02-05] MEDS: POLYETHYLENE GLYCOL 17 GM PACKET PO PRN (21:17)
[2020-02-06] MEDS: OXYcodone/APAP 5/325MG TABLET PO PRN ×2 (00:47→11:54)
[2020-02-06 01:23] VITALS: BP 114/79
[2020-02-06] MEDS: OxyconTIN ER 10 MG TAB.ER PO SCH ×2 (05:47→18:07)
[2020-02-06 06:31] VITALS: BP 100/65
[2020-02-06] MEDS: LIDODERM REMOVE PATCH NOTE XX SCH (07:58)
[2020-02-06] MEDS: SENNA/DOCUSATE TABLET PO SCH (08:13)
[2020-02-06] MEDS: DOCUSATE 100 MG CAPSULE PO SCH (08:13)
[2020-02-06] MEDS: FOLIC ACID 1 MG TABLET PO SCH (08:13)
[2020-02-06] MEDS: MAGNESIUM HYDROXIDE 8%, 30ML UDC PO SCH (08:13)
[2020-02-06] MEDS: LISINOPRIL 20 MG TABLET PO SCH ×2 (08:13→20:21)
[2020-02-06] MEDS: MULTIVITAMIN 1 TABLET PO SCH (08:13)
[2020-02-06 12:23] VITALS: BP 106/73
[2020-02-06] MEDS: BISACODYL 10 MG SUPP PR PRN (18:03)
[2020-02-06 18:42] VITALS: BP 110/69
[2020-02-06] MEDS: LIDODERM 5% PATCH TD SCH (20:21)
[2020-02-07] MEDS: OXYcodone/APAP 5/325MG TABLET PO PRN ×4 (02:34→20:24)
[2020-02-07] MEDS: ARTIFICIAL TEARS 15 DROP/ML BOTTLE EACHEYE PRN (02:47)
[2020-02-07 02:51] VITALS: BP 112/80
[2020-02-07] MEDS: OxyconTIN ER 10 MG TAB.ER PO SCH ×2 (05:40→16:48)
[2020-02-07] MEDS: LIDODERM REMOVE PATCH NOTE XX SCH (08:00)
[2020-02-07 08:11] VITALS: BP 122/89
[2020-02-07] MEDS: DOCUSATE 100 MG CAPSULE PO SCH (08:23)
[2020-02-07] MEDS: LISINOPRIL 20 MG TABLET PO SCH ×2 (08:23→20:27)
[2020-02-07] MEDS: SENNA/DOCUSATE TABLET PO SCH (08:23)
[2020-02-07] MEDS: MAGNESIUM HYDROXIDE 8%, 30ML UDC PO SCH (08:23)
[2020-02-07] MEDS: MULTIVITAMIN 1 TABLET PO SCH (08:23)
[2020-02-07] MEDS: FOLIC ACID 1 MG TABLET PO SCH (08:23)
[2020-02-07] MEDS ORDERED: LISI-170 PO (11:30)
[2020-02-07] MEDS ORDERED: LIDO700A20 TD (11:30)
[2020-02-07] MEDS ORDERED: OXYC10TA72 PO (11:30)
[2020-02-07] MEDS ORDERED: OXYcodone/APAP 5/325MG PO (11:30)
[2020-02-07] MEDS ORDERED: LACT20SO13 PO (11:30)
[2020-02-07] MEDS ORDERED: MULT-449 PO (11:30)
[2020-02-07 14:10] VITALS: BP 102/68
[2020-02-07 19:00] VITALS: BP 93/58
[2020-02-07] MEDS: LIDODERM 5% PATCH TD SCH (20:24)
[2020-02-08] MEDS: OXYcodone/APAP 5/325MG TABLET PO PRN ×3 (00:30→11:17)
[2020-02-08 00:32] VITALS: BP 98/67
[2020-02-08] MEDS: BISACODYL 10 MG SUPP PR PRN (01:45)
[2020-02-08] MEDS: OxyconTIN ER 10 MG TAB.ER PO SCH ×2 (06:37→17:09)
[2020-02-08 07:00] VITALS: BP 99/68
[2020-02-08] MEDS: LIDODERM REMOVE PATCH NOTE XX SCH (08:00)
[2020-02-08] MEDS: MAGNESIUM HYDROXIDE 8%, 30ML UDC PO SCH (09:13)
[2020-02-08] MEDS: SENNA/DOCUSATE TABLET PO SCH (09:13)
[2020-02-08] MEDS: DOCUSATE 100 MG CAPSULE PO SCH (09:13)
[2020-02-08] MEDS: MULTIVITAMIN 1 TABLET PO SCH (09:14)
[2020-02-08] MEDS: FOLIC ACID 1 MG TABLET PO SCH (09:14)
[2020-02-08] MEDS: LISINOPRIL 20 MG TABLET PO SCH ×2 (09:14→21:06)
[2020-02-08 14:30] VITALS: BP 98/65
[2020-02-08] MEDS: LIDODERM 5% PATCH TD SCH (21:06)
[2020-02-08 21:10] VITALS: BP 98/63
[2020-02-09 00:42] VITALS: BP 108/80
[2020-02-09] MEDS: OXYcodone/APAP 5/325MG TABLET PO PRN ×5 (01:46→21:36)
[2020-02-09] MEDS: OxyconTIN ER 10 MG TAB.ER PO SCH ×2 (05:21→17:32)
[2020-02-09 07:06] VITALS: BP 96/63
[2020-02-09] MEDS: LIDODERM REMOVE PATCH NOTE XX SCH (08:00)
[2020-02-09] MEDS: LISINOPRIL 20 MG TABLET PO SCH ×2 (09:03→21:08)
[2020-02-09] MEDS: MULTIVITAMIN 1 TABLET PO SCH (09:03)
[2020-02-09] MEDS: DOCUSATE 100 MG CAPSULE PO SCH (09:04)
[2020-02-09] MEDS: MAGNESIUM HYDROXIDE 8%, 30ML UDC PO SCH (09:04)
[2020-02-09] MEDS: SENNA/DOCUSATE TABLET PO SCH (09:04)
[2020-02-09] MEDS: FOLIC ACID 1 MG TABLET PO SCH (09:04)
[2020-02-09 12:38] VITALS: BP 111/78
--- NOTE | 2020-02-09 12:49 | NUR ---
REC: snf or SNF Addendum: 02/09/20 at 1250 by Camille KNOWLES Amended: Links added.
[2020-02-09 19:06] VITALS: BP 94/62
[2020-02-09] MEDS: LIDODERM 5% PATCH TD SCH (21:08)
[2020-02-10] MEDS: OXYcodone/APAP 5/325MG TABLET PO PRN ×5 (01:46→23:07)
[2020-02-10 02:11] VITALS: BP 98/60
[2020-02-10] MEDS: LISINOPRIL 20 MG TABLET PO SCH ×4 (07:58→23:29)
[2020-02-10] MEDS: OxyconTIN ER 10 MG TAB.ER PO SCH ×2 (07:58→23:06)
[2020-02-10] MEDS: DOCUSATE 100 MG CAPSULE PO SCH (07:58)
[2020-02-10] MEDS: MULTIVITAMIN 1 TABLET PO SCH (07:58)
[2020-02-10] MEDS: FOLIC ACID 1 MG TABLET PO SCH (07:58)
[2020-02-10] MEDS: MAGNESIUM HYDROXIDE 8%, 30ML UDC PO SCH (07:59)
[2020-02-10] MEDS: LIDODERM REMOVE PATCH NOTE XX SCH (07:59)
[2020-02-10] MEDS: SENNA/DOCUSATE TABLET PO SCH (07:59)
[2020-02-10 09:20] VITALS: BP 93/63
[2020-02-10] MEDS: BISACODYL 10 MG SUPP PR PRN (12:25)
[2020-02-10 12:26] VITALS: BP 108/78
[2020-02-10 18:48] VITALS: BP 98/63
[2020-02-10] MEDS: LIDODERM 5% PATCH TD SCH (23:18)
[2020-02-11 01:04] VITALS: BP 97/60
[2020-02-11] MEDS: OXYcodone/APAP 5/325MG TABLET PO PRN ×4 (03:50→19:24)
[2020-02-11 07:08] VITALS: BP 105/68
[2020-02-11] MEDS: LIDODERM REMOVE PATCH NOTE XX SCH (08:00)
[2020-02-11] MEDS: MULTIVITAMIN 1 TABLET PO SCH (09:13)
[2020-02-11] MEDS: MAGNESIUM HYDROXIDE 8%, 30ML UDC PO SCH (09:13)
[2020-02-11] MEDS: DOCUSATE 100 MG CAPSULE PO SCH (09:13)
[2020-02-11] MEDS: SENNA/DOCUSATE TABLET PO SCH (09:14)
[2020-02-11] MEDS: FOLIC ACID 1 MG TABLET PO SCH (09:14)
[2020-02-11] MEDS: LISINOPRIL 20 MG TABLET PO SCH ×2 (09:14→23:56)
[2020-02-11] MEDS: OxyconTIN ER 10 MG TAB.ER PO SCH ×2 (11:34→23:56)
[2020-02-11 13:34] VITALS: BP 98/67
[2020-02-11 18:26] VITALS: BP 115/76
[2020-02-11] MEDS: POLYETHYLENE GLYCOL 17 GM PACKET PO PRN (19:23)
[2020-02-11] MEDS: LIDODERM 5% PATCH TD SCH (19:24)
[2020-02-12] MEDS: OXYcodone/APAP 5/325MG TABLET PO PRN ×5 (00:32→18:15)
[2020-02-12 00:54] VITALS: BP 117/79
[2020-02-12] MEDS: BISACODYL 10 MG SUPP PR PRN (01:38)
[2020-02-12 06:40] VITALS: BP 90/63
[2020-02-12] MEDS: DOCUSATE 100 MG CAPSULE PO SCH (08:50)
[2020-02-12] MEDS: MULTIVITAMIN 1 TABLET PO SCH (08:50)
[2020-02-12] MEDS: MAGNESIUM HYDROXIDE 8%, 30ML UDC PO SCH (08:50)
[2020-02-12] MEDS: LISINOPRIL 20 MG TABLET PO SCH (08:50)
[2020-02-12] MEDS: SENNA/DOCUSATE TABLET PO SCH (08:50)
[2020-02-12] MEDS: FOLIC ACID 1 MG TABLET PO SCH (08:50)
[2020-02-12] MEDS: LIDODERM REMOVE PATCH NOTE XX SCH (08:50)
[2020-02-12 12:19] VITALS: BP 97/67
[2020-02-12] MEDS: OxyconTIN ER 10 MG TAB.ER PO SCH ×2 (12:26→23:08)
[2020-02-12 19:27] VITALS: BP 112/80
[2020-02-12] MEDS: LIDODERM 5% PATCH TD SCH (20:00)
[2020-02-13] MEDS: OXYcodone/APAP 5/325MG TABLET PO PRN ×6 (00:53→23:52)
[2020-02-13 01:09] VITALS: BP 99/67
[2020-02-13] MEDS: BISACODYL 10 MG SUPP PR PRN (01:29)
[2020-02-13 07:10] VITALS: BP 94/62
[2020-02-13] MEDS: LIDODERM REMOVE PATCH NOTE XX SCH (08:00)
[2020-02-13] MEDS: MAGNESIUM HYDROXIDE 8%, 30ML UDC PO SCH (09:00)
[2020-02-13] MEDS: SENNA/DOCUSATE TABLET PO SCH (09:00)
[2020-02-13] MEDS: DOCUSATE 100 MG CAPSULE PO SCH (09:33)
[2020-02-13] MEDS: MULTIVITAMIN 1 TABLET PO SCH (09:33)
[2020-02-13] MEDS: FOLIC ACID 1 MG TABLET PO SCH (09:34)
[2020-02-13] MEDS: OxyconTIN ER 10 MG TAB.ER PO SCH ×2 (11:22→22:53)
[2020-02-13 13:15] VITALS: BP 93/59
[2020-02-13 19:36] VITALS: BP 96/68
[2020-02-13] MEDS: LIDODERM 5% PATCH TD SCH (19:44)
[2020-02-14 00:47] VITALS: BP 103/67
[2020-02-14] MEDS: OXYcodone/APAP 5/325MG TABLET PO PRN ×5 (04:22→21:44)
[2020-02-14 06:47] VITALS: BP 104/71
[2020-02-14] MEDS: FOLIC ACID 1 MG TABLET PO SCH (09:02)
[2020-02-14] MEDS: MULTIVITAMIN 1 TABLET PO SCH (09:02)
[2020-02-14] MEDS: MAGNESIUM HYDROXIDE 8%, 30ML UDC PO SCH (09:02)
[2020-02-14] MEDS: DOCUSATE 100 MG CAPSULE PO SCH (09:02)
[2020-02-14] MEDS: SENNA/DOCUSATE TABLET PO SCH (09:03)
[2020-02-14] MEDS: LIDODERM REMOVE PATCH NOTE XX SCH (09:06)
[2020-02-14] MEDS: OxyconTIN ER 10 MG TAB.ER PO SCH (13:09)
[2020-02-14 15:46] VITALS: BP 124/86
[2020-02-14 18:44] VITALS: BP 117/82
[2020-02-14] MEDS: LIDODERM 5% PATCH TD SCH (21:46)
[2020-02-15] MEDS: OxyconTIN ER 10 MG TAB.ER PO SCH ×2 (01:04→13:13)
[2020-02-15 01:39] VITALS: BP 126/86
[2020-02-15] MEDS: OXYcodone/APAP 5/325MG TABLET PO PRN ×6 (01:59→23:23)
[2020-02-15 06:37] VITALS: BP 128/85
[2020-02-15] MEDS: LIDODERM REMOVE PATCH NOTE XX SCH (08:00)
[2020-02-15] MEDS: FOLIC ACID 1 MG TABLET PO SCH (10:03)
[2020-02-15] MEDS: MAGNESIUM HYDROXIDE 8%, 30ML UDC PO SCH (10:03)
[2020-02-15] MEDS: SENNA/DOCUSATE TABLET PO SCH (10:03)
[2020-02-15] MEDS: DOCUSATE 100 MG CAPSULE PO SCH (10:03)
[2020-02-15] MEDS: MULTIVITAMIN 1 TABLET PO SCH (10:03)
[2020-02-15 14:43] VITALS: BP 124/84
[2020-02-15 18:30] VITALS: BP 144/86
[2020-02-15] MEDS: LIDODERM 5% PATCH TD SCH (20:00)
[2020-02-16 00:27] VITALS: BP 117/81
[2020-02-16] MEDS: OxyconTIN ER 10 MG TAB.ER PO SCH ×2 (01:30→14:14)
[2020-02-16] MEDS: OXYcodone/APAP 5/325MG TABLET PO PRN ×5 (03:49→21:14)
[2020-02-16] MEDS: BISACODYL 10 MG SUPP PR PRN (04:53)
[2020-02-16 06:44] VITALS: BP 115/81
[2020-02-16] MEDS: MAGNESIUM HYDROXIDE 8%, 30ML UDC PO SCH (07:57)
[2020-02-16] MEDS: DOCUSATE 100 MG CAPSULE PO SCH (07:57)
[2020-02-16] MEDS: LIDODERM REMOVE PATCH NOTE XX SCH (07:57)
[2020-02-16] MEDS: MULTIVITAMIN 1 TABLET PO SCH (07:57)
[2020-02-16] MEDS: SENNA/DOCUSATE TABLET PO SCH (07:57)
[2020-02-16] MEDS: FOLIC ACID 1 MG TABLET PO SCH (07:57)
[2020-02-16 12:10] VITALS: BP 151/95
[2020-02-16] MEDS: ARTIFICIAL TEARS 15 DROP/ML BOTTLE EACHEYE PRN (12:15)
[2020-02-16 17:19] VITALS: BP 131/92
[2020-02-16 18:35] VITALS: BP 110/74
[2020-02-16] MEDS: LIDODERM 5% PATCH TD SCH (20:00)
[2020-02-17 01:02] VITALS: BP 145/92
[2020-02-17] MEDS: OXYcodone/APAP 5/325MG TABLET PO PRN ×6 (01:07→21:51)
[2020-02-17] MEDS: OxyconTIN ER 10 MG TAB.ER PO SCH ×2 (01:07→13:39)
[2020-02-17 07:51] VITALS: BP 134/90
[2020-02-17] MEDS: LIDODERM REMOVE PATCH NOTE XX SCH (08:00)
[2020-02-17] MEDS: FOLIC ACID 1 MG TABLET PO SCH (08:08)
[2020-02-17] MEDS: SENNA/DOCUSATE TABLET PO SCH (08:08)
[2020-02-17] MEDS: DOCUSATE 100 MG CAPSULE PO SCH (08:08)
[2020-02-17] MEDS: MAGNESIUM HYDROXIDE 8%, 30ML UDC PO SCH (08:08)
[2020-02-17] MEDS: MULTIVITAMIN 1 TABLET PO SCH (08:08)
[2020-02-17] MEDS: BISACODYL 10 MG SUPP PR PRN (09:11)
[2020-02-17 12:09] VITALS: BP 121/84
[2020-02-17 18:09] VITALS: BP 134/91
[2020-02-17] MEDS: LIDODERM 5% PATCH TD SCH (20:00)
[2020-02-18] MEDS: OxyconTIN ER 10 MG TAB.ER PO SCH ×2 (01:07→14:22)
[2020-02-18 01:13] VITALS: BP 133/89
[2020-02-18] MEDS: OXYcodone/APAP 5/325MG TABLET PO PRN ×6 (02:01→22:32)
[2020-02-18 07:15] VITALS: BP 145/98
[2020-02-18] MEDS: LIDODERM REMOVE PATCH NOTE XX SCH (09:50)
[2020-02-18] MEDS: FOLIC ACID 1 MG TABLET PO SCH (10:00)
[2020-02-18] MEDS: MAGNESIUM HYDROXIDE 8%, 30ML UDC PO SCH (10:01)
[2020-02-18] MEDS: MULTIVITAMIN 1 TABLET PO SCH (10:01)
[2020-02-18] MEDS: DOCUSATE 100 MG CAPSULE PO SCH (10:01)
[2020-02-18] MEDS: SENNA/DOCUSATE TABLET PO SCH (10:01)
[2020-02-18 12:00] VITALS: BP 133/99
[2020-02-18 18:43] VITALS: BP 123/85
[2020-02-18] MEDS: LIDODERM 5% PATCH TD SCH (19:41)
[2020-02-19] MEDS: OxyconTIN ER 10 MG TAB.ER PO SCH ×2 (01:16→12:28)
[2020-02-19 01:23] VITALS: BP 138/91
[2020-02-19] MEDS: OXYcodone/APAP 5/325MG TABLET PO PRN ×4 (03:27→17:00)
[2020-02-19 07:58] VITALS: BP 148/95
[2020-02-19] MEDS: LIDODERM REMOVE PATCH NOTE XX SCH (08:24)
[2020-02-19] MEDS: DOCUSATE 100 MG CAPSULE PO SCH (08:25)
[2020-02-19] MEDS: FOLIC ACID 1 MG TABLET PO SCH (08:26)
[2020-02-19] MEDS: MULTIVITAMIN 1 TABLET PO SCH (08:26)
[2020-02-19] MEDS: MAGNESIUM HYDROXIDE 8%, 30ML UDC PO SCH (08:26)
[2020-02-19] MEDS: SENNA/DOCUSATE TABLET PO SCH (08:26)
[2020-02-19 14:07] VITALS: BP 147/96
[2020-02-19] MEDS: GABAPENTIN 100 MG CAPSULE PO SCH ×2 (17:14→20:46)
[2020-02-19 19:36] VITALS: BP 121/83
[2020-02-19] MEDS: LIDODERM 5% PATCH TD SCH (20:01)
[2020-02-19] MEDS: OXYcodone/APAP 10/325MG TABLET PO PRN (20:46)
[2020-02-19] MEDS: BISACODYL 10 MG SUPP PR PRN (20:47)
[2020-02-20 01:01] VITALS: BP 120/83
[2020-02-20] MEDS: OxyconTIN ER 10 MG TAB.ER PO SCH ×2 (01:03→14:07)
[2020-02-20] MEDS: OXYcodone/APAP 10/325MG TABLET PO PRN ×5 (01:42→21:07)
[2020-02-20] MEDS: LIDODERM REMOVE PATCH NOTE XX SCH (08:00)
[2020-02-20] MEDS: MULTIVITAMIN 1 TABLET PO SCH (08:58)
[2020-02-20] MEDS: FOLIC ACID 1 MG TABLET PO SCH (08:58)
[2020-02-20] MEDS: DOCUSATE 100 MG CAPSULE PO SCH (08:58)
[2020-02-20] MEDS: GABAPENTIN 100 MG CAPSULE PO SCH ×3 (08:58→21:06)
[2020-02-20] MEDS: MAGNESIUM HYDROXIDE 8%, 30ML UDC PO SCH (08:58)
[2020-02-20] MEDS: SENNA/DOCUSATE TABLET PO SCH (08:59)
[2020-02-20 14:54] VITALS: BP 118/83
[2020-02-20 19:40] VITALS: BP 118/88
[2020-02-20] MEDS: DOCUSATE 100 MG CAPSULE PO PRN (21:06)
[2020-02-20] MEDS: LIDODERM 5% PATCH TD SCH (21:07)
[2020-02-21] MEDS: OxyconTIN ER 10 MG TAB.ER PO SCH ×2 (01:35→13:43)
[2020-02-21] MEDS: OXYcodone/APAP 10/325MG TABLET PO PRN ×5 (01:36→21:23)
[2020-02-21 01:41] VITALS: BP 121/84
[2020-02-21 07:07] VITALS: BP 129/88
[2020-02-21] MEDS: SENNA/DOCUSATE TABLET PO SCH (09:29)
[2020-02-21] MEDS: LACTULOSE 20 GM/30 ML UDC PO PRN (09:29)
[2020-02-21] MEDS: GABAPENTIN 100 MG CAPSULE PO SCH ×3 (09:29→21:22)
[2020-02-21] MEDS: MULTIVITAMIN 1 TABLET PO SCH (09:29)
[2020-02-21] MEDS: MAGNESIUM HYDROXIDE 8%, 30ML UDC PO SCH (09:29)
[2020-02-21] MEDS: DOCUSATE 100 MG CAPSULE PO SCH (09:29)
[2020-02-21] MEDS: FOLIC ACID 1 MG TABLET PO SCH (09:29)
[2020-02-21] MEDS: LIDODERM REMOVE PATCH NOTE XX SCH (10:07)
[2020-02-21 12:28] VITALS: BP 91/51
[2020-02-21 19:30] VITALS: BP 119/87
[2020-02-21] MEDS: BISACODYL 10 MG SUPP PR PRN (19:34)
[2020-02-21] MEDS: LIDODERM 5% PATCH TD SCH (19:34)
[2020-02-22 00:26] VITALS: BP 129/85
[2020-02-22] MEDS: OXYcodone/APAP 10/325MG TABLET PO PRN ×6 (01:11→22:35)
[2020-02-22] MEDS: OxyconTIN ER 10 MG TAB.ER PO SCH ×2 (01:11→13:54)
[2020-02-22 07:12] VITALS: BP 103/72
[2020-02-22] MEDS: LIDODERM REMOVE PATCH NOTE XX SCH (08:00)
[2020-02-22] MEDS: MAGNESIUM HYDROXIDE 8%, 30ML UDC PO SCH (09:48)
[2020-02-22] MEDS: LACTULOSE 20 GM/30 ML UDC PO PRN (09:48)
[2020-02-22] MEDS: SENNA/DOCUSATE TABLET PO SCH (09:48)
[2020-02-22] MEDS: GABAPENTIN 100 MG CAPSULE PO SCH ×3 (09:48→21:50)
[2020-02-22] MEDS: DOCUSATE 100 MG CAPSULE PO SCH (09:49)
[2020-02-22] MEDS: FOLIC ACID 1 MG TABLET PO SCH (09:49)
[2020-02-22] MEDS: MULTIVITAMIN 1 TABLET PO SCH (09:49)
[2020-02-22] MEDS: POLYETHYLENE GLYCOL 17 GM PACKET PO PRN (13:54)
[2020-02-22 14:03] VITALS: BP 110/78
[2020-02-22 18:15] VITALS: BP 112/78
[2020-02-22] MEDS: LIDODERM 5% PATCH TD SCH (19:09)
[2020-02-23] MEDS: OxyconTIN ER 10 MG TAB.ER PO SCH ×2 (01:40→14:20)
[2020-02-23 01:43] VITALS: BP 106/73
[2020-02-23] MEDS: OXYcodone/APAP 10/325MG TABLET PO PRN ×5 (02:39→21:12)
[2020-02-23 06:30] VITALS: BP 109/81
[2020-02-23] MEDS: LIDODERM REMOVE PATCH NOTE XX SCH (08:00)
[2020-02-23] MEDS: MULTIVITAMIN 1 TABLET PO SCH (08:33)
[2020-02-23] MEDS: SENNA/DOCUSATE TABLET PO SCH (08:33)
[2020-02-23] MEDS: DOCUSATE 100 MG CAPSULE PO SCH (08:33)
[2020-02-23] MEDS: FOLIC ACID 1 MG TABLET PO SCH (08:33)
[2020-02-23] MEDS: GABAPENTIN 100 MG CAPSULE PO SCH ×3 (08:33→21:13)
[2020-02-23] MEDS: MAGNESIUM HYDROXIDE 8%, 30ML UDC PO SCH (08:34)
[2020-02-23 13:17] VITALS: BP 109/75
[2020-02-23 18:15] VITALS: BP 110/57
[2020-02-23] MEDS: LIDODERM 5% PATCH TD SCH (18:58)
[2020-02-23] MEDS: BISACODYL 10 MG SUPP PR PRN (19:45)
[2020-02-24 00:02] VITALS: BP 129/91
[2020-02-24] MEDS: OXYcodone/APAP 10/325MG TABLET PO PRN ×6 (01:25→22:53)
[2020-02-24] MEDS: OxyconTIN ER 10 MG TAB.ER PO SCH ×2 (01:30→14:40)
[2020-02-24 06:52] VITALS: BP 96/64
[2020-02-24] MEDS: LIDODERM REMOVE PATCH NOTE XX SCH (07:08)
[2020-02-24] MEDS: GABAPENTIN 100 MG CAPSULE PO SCH ×3 (07:59→21:12)
[2020-02-24] MEDS: FOLIC ACID 1 MG TABLET PO SCH (07:59)
[2020-02-24] MEDS: SENNA/DOCUSATE TABLET PO SCH (07:59)
[2020-02-24] MEDS: DOCUSATE 100 MG CAPSULE PO SCH (07:59)
[2020-02-24] MEDS: MAGNESIUM HYDROXIDE 8%, 30ML UDC PO SCH (07:59)
[2020-02-24] MEDS: MULTIVITAMIN 1 TABLET PO SCH (07:59)
[2020-02-24 12:04] VITALS: BP 117/81
[2020-02-24 19:13] VITALS: BP 110/59
[2020-02-24] MEDS: LIDODERM 5% PATCH TD SCH (20:00)
[2020-02-25 00:16] VITALS: BP 101/67
[2020-02-25] MEDS: OxyconTIN ER 10 MG TAB.ER PO SCH ×2 (02:27→13:29)
[2020-02-25] MEDS: OXYcodone/APAP 10/325MG TABLET PO PRN ×6 (02:29→22:44)
[2020-02-25 06:48] VITALS: BP 121/81
[2020-02-25] MEDS: LIDODERM REMOVE PATCH NOTE XX SCH (08:00)
[2020-02-25] MEDS: MAGNESIUM HYDROXIDE 8%, 30ML UDC PO SCH (08:56)
[2020-02-25] MEDS: SENNA/DOCUSATE TABLET PO SCH (08:56)
[2020-02-25] MEDS: MULTIVITAMIN 1 TABLET PO SCH (08:56)
[2020-02-25] MEDS: DOCUSATE 100 MG CAPSULE PO SCH (08:56)
[2020-02-25] MEDS: GABAPENTIN 100 MG CAPSULE PO SCH ×3 (08:56→19:44)
[2020-02-25] MEDS: FOLIC ACID 1 MG TABLET PO SCH (08:56)
[2020-02-25 13:34] VITALS: BP 102/74
[2020-02-25 19:05] VITALS: BP 115/78
[2020-02-25] MEDS: POLYETHYLENE GLYCOL 17 GM PACKET PO PRN (19:44)
[2020-02-25] MEDS: LIDODERM 5% PATCH TD SCH (19:44)
[2020-02-26 00:28] VITALS: BP 110/75
[2020-02-26] MEDS: OxyconTIN ER 10 MG TAB.ER PO SCH ×2 (01:42→15:03)
[2020-02-26] MEDS: OXYcodone/APAP 10/325MG TABLET PO PRN ×5 (02:34→22:23)
[2020-02-26 06:38] VITALS: BP 122/81
[2020-02-26] MEDS: LIDODERM REMOVE PATCH NOTE XX SCH (08:00)
[2020-02-26] MEDS: DOCUSATE 100 MG CAPSULE PO SCH (08:34)
[2020-02-26] MEDS: MAGNESIUM HYDROXIDE 8%, 30ML UDC PO SCH (08:34)
[2020-02-26] MEDS: GABAPENTIN 100 MG CAPSULE PO SCH ×3 (08:35→22:23)
[2020-02-26] MEDS: FOLIC ACID 1 MG TABLET PO SCH (08:35)
[2020-02-26] MEDS: SENNA/DOCUSATE TABLET PO SCH (08:35)
[2020-02-26] MEDS: MULTIVITAMIN 1 TABLET PO SCH (08:35)
[2020-02-26 14:29] VITALS: BP 138/92
[2020-02-26] MEDS: LACTULOSE 20 GM/30 ML UDC PO PRN (15:03)
[2020-02-26] MEDS: BISACODYL 10 MG SUPP PR PRN (15:54)
[2020-02-26 18:59] VITALS: BP 125/86
[2020-02-26] MEDS: LIDODERM 5% PATCH TD SCH (21:04)
[2020-02-27 01:22] VITALS: BP 114/83
[2020-02-27] MEDS: OxyconTIN ER 10 MG TAB.ER PO SCH ×2 (02:08→14:51)
[2020-02-27] MEDS: OXYcodone/APAP 10/325MG TABLET PO PRN ×4 (02:30→14:51)
[2020-02-27 06:26] VITALS: BP 144/89
[2020-02-27] MEDS: LIDODERM REMOVE PATCH NOTE XX SCH (07:35)
[2020-02-27] MEDS: MULTIVITAMIN 1 TABLET PO SCH (07:59)
[2020-02-27] MEDS: DOCUSATE 100 MG CAPSULE PO SCH (07:59)
[2020-02-27] MEDS: MAGNESIUM HYDROXIDE 8%, 30ML UDC PO SCH (07:59)
[2020-02-27] MEDS: SENNA/DOCUSATE TABLET PO SCH (07:59)
[2020-02-27] MEDS: FOLIC ACID 1 MG TABLET PO SCH (07:59)
[2020-02-27] MEDS: GABAPENTIN 100 MG CAPSULE PO SCH ×2 (08:00→14:51)
[2020-02-27] MEDS: LIDODERM 5% PATCH TD SCH (10:25)
[2020-02-27 12:04] VITALS: BP 127/89
== END 2020-02-27 16:08 | disposition home health service (06) | DRG 25 ==
LOC: ED 16:47 → EDIP 16:48 → ED 17:44 → 4WST 21:51 → CCU 12-08 13:36 → 5SO 12-09 13:25 → 4WST 12-11 00:06 → 3WST 01-06 17:20 → 3N 01-19 08:07 → 3WST 01-21 10:24 → 4NW 01-23 12:26
PROVIDERS: ADMIT Internal Medicine; ATTEND Internal Medicine
PROC: 009U3ZX Drainage of Spinal Canal, Percutaneous Approach, Diagnostic (ICD-10-PCS; 2019-11-28)
PROC: B01B1ZZ Fluoroscopy of Spinal Cord using Low Osmolar Contrast (ICD-10-PCS; 2019-11-28)
PROC: 009U3ZX Drainage of Spinal Canal, Percutaneous Approach, Diagnostic (ICD-10-PCS; 2019-12-05)
PROC: B01B1ZZ Fluoroscopy of Spinal Cord using Low Osmolar Contrast (ICD-10-PCS; 2019-12-05)
PROC: 00B03ZX Excision of Brain, Percutaneous Approach, Diagnostic (ICD-10-PCS; principal; 2019-12-08 10:00)
PROC: 009U3ZX Drainage of Spinal Canal, Percutaneous Approach, Diagnostic (ICD-10-PCS; 2019-12-12)
PROC: B01B1ZZ Fluoroscopy of Spinal Cord using Low Osmolar Contrast (ICD-10-PCS; 2019-12-12)
PROC: 0T9B70Z Drainage of Bladder with Drainage Device, Via Natural or Artificial Opening (ICD-10-PCS; 2019-12-17)
PROC: 009U3ZX Drainage of Spinal Canal, Percutaneous Approach, Diagnostic (ICD-10-PCS; 2019-12-22)
PROC: B01B1ZZ Fluoroscopy of Spinal Cord using Low Osmolar Contrast (ICD-10-PCS; 2020-01-02)
DX: G37.9 Demyelinating disease of central nervous system, unspecified (principal); G93.41 Metabolic encephalopathy; K85.90 Acute pancreatitis without necrosis or infection, unspecified; G04.81 Other encephalitis and encephalomyelitis; C85.19 Unspecified B-cell lymphoma, extranodal and solid organ sites; F10.239 Alcohol dependence with withdrawal, unspecified; C83.39 Diffuse large B-cell lymphoma, extranodal and solid organ sites; G93.49 Other encephalopathy; N39.0 Urinary tract infection, site not specified; R47.01 Aphasia; Z16.12 Extended spectrum beta lactamase (ESBL) resistance; K86.1 Other chronic pancreatitis; G81.91 Hemiplegia, unspecified affecting right dominant side; A53.9 Syphilis, unspecified; B27.00 Gammaherpesviral mononucleosis without complication; B96.20 Unspecified Escherichia coli [E. coli] as the cause of diseases classified elsewhere; D64.9 Anemia, unspecified; D69.59 Other secondary thrombocytopenia; F12.10 Cannabis abuse, uncomplicated; F15.10 Other stimulant abuse, uncomplicated; F17.210 Nicotine dependence, cigarettes, uncomplicated; G81.94 Hemiplegia, unspecified affecting left nondominant side; G89.29 Other chronic pain; I10 Essential (primary) hypertension; I77.810 Thoracic aortic ectasia; K59.00 Constipation, unspecified; K70.0 Alcoholic fatty liver; M48.02 Spinal stenosis, cervical region; M50.30 Other cervical disc degeneration, unspecified cervical region; T38.0X5A Adverse effect of glucocorticoids and synthetic analogues, initial encounter; Z51.5 Encounter for palliative care; Z59.0 Homelessness; Z66 Do not resuscitate; Z74.01 Bed confinement status; Z79.891 Long term (current) use of opiate analgesic; Z79.899 Other long term (current) drug therapy; Z80.0 Family history of malignant neoplasm of digestive organs; Z87.11 Personal history of peptic ulcer disease; Z98.84 Bariatric surgery status; Y92.89 Other specified places as the place of occurrence of the external cause; Z20.828 Contact with and (suspected) exposure to other viral communicable diseases
CPT/HCPCS: 36415; 62270; 62328; 70450; 70544; 70551; 70552; 70553; 71045; 71260; 72156; 74018; 74177; 80048; 80053; 80307; 81001; 81003; 82040; 82042; 82140; 82306; 82550; 82784; 82945; 83519; 83605; 83735; 84145; 84157; 84484; 85025; 85651; 86038; 86140; 86255; 86341; 86361; 86480; 86592; 86618; 86635; 86645; 86695; 86696; 86762; 86777; 86778; 86788; 86789; 87040; 87070; 87077; 87081; 87086; 87102; 87116; 87186; 87205; 87206; 87252; 87305; 87449; 87496; 87529; 87635; 87798; 87806; 87899; 88108; 88307; 88331; 89051; 93005; 93306; 95812; 95819; 99285; C1713; G0378; J0690; J0696; J1100; J1335; J1561; J1650; J1885; J1953; J2405; J2704; J2930; J3010; Q9967; 92522-GN; A4648; A9575; G0475; J0360; J2060; J2270; J3480; J7040; J7050; J7120